=== PATIENT | male | born 1990 | race Caucasian/White ===

== ENCOUNTER 2020-06-21 14:24 | Emergency (ER) | payer OTHER ==
[~2020-06-21] VITALS: Ht 175.3 cm; Wt 70.5 kg
[2020-06-21] MEDS ORDERED: BUPR1SUB5 (14:29)
[2020-06-21] MEDS ORDERED: ZOLM5TAB14 (14:29)
[2020-06-21] MEDS ORDERED: NORCO, ANEXSIA 5/325MG TABLET (HYDROcodone/ACETAMINOPHEN) PO ONE (15:00)
[2020-06-21] MEDS ORDERED: KETOROLAC 60MG 2ML VIAL IM ONE (15:15)
[2020-06-21] MEDS ORDERED: ACETAMINOPHEN 500 MG TAB PO ONE (15:15)
--- NOTE | 2020-06-21 15:28 | REPVR ---
PROCEDURE INFORMATION: Exam: XR Left Knee Exam date and time: 06/21/2020 3:19 PM Age: 30 years old Clinical indication: Injury or trauma; Fall; Puncture; Patella or knee; Left; Without foreign body; Additional info: Removal of foreign body TECHNIQUE: Imaging protocol: XR Left knee. Views: 1 or 2 views. COMPARISON: CR Knee, complete LEFT 06/21/2020 2:31 PM FINDINGS: Bones/joints: No displaced fracture is seen. Soft tissues: The metallic nail previously demonstrated within or over the patella has been removed. No retained foreign body noted. Minimal soft tissue swelling in the prepatellar soft tissues. IMPRESSION: 1. No foreign bodies present. 2. Mild prepatellar soft tissue swelling. Electronically signed by: Aleida Cameron On 06/21/2020 15:28:35 PM
[2020-06-21] MEDS ORDERED: DOXYCYCLINE HYCLATE 100MG TABLET PO ONE (15:45)
[2020-06-21] MEDS ORDERED: DOXY100C37 PO (15:45)
[2020-06-21] MEDS ORDERED: BOOSTRIX/ADACEL VACCINE (DIPHTH/PERTUSS/ACELL/TETANUS) 0.5ML SYR IM ONE (15:45)
[2020-06-21 15:53] VITALS: BP 124/76
== END 2020-06-21 15:59 | disposition home or self-care (01) ==
LOC: M ED 14:24
DX: S80.252A Superficial foreign body, left knee, initial encounter (principal); W45.0XXA Nail entering through skin, initial encounter; W29.4XXA Contact with nail gun, initial encounter; Y92.009 Unspecified place in unspecified non-institutional (private) residence as the place of occurrence of the external cause; Y93.9 Activity, unspecified; Y99.9 Unspecified external cause status; Z88.0 Allergy status to penicillin; Z88.1 Allergy status to other antibiotic agents; Z88.2 Allergy status to sulfonamides
CPT/HCPCS: 73560; 90471; 90715; 96372; 99283; J1885

== ENCOUNTER → 2020-10-16 | Outpatient (REF) | payer OTHER ==
[~2020-10-16] MED LIST: BUPR1SUB5; DOXY100C37 PO; ZOLM5TAB14
[2020-10-16 18:13] LABS: HEPATITIS C VIRUS ABY INDEX 0.1 INDEX (<0.8); HIV 1&2 SCREEN CENTAUR NEGATIVE (NEGATIVE)
== END ==
LOC: M LAB REF 16:23
PROVIDERS: ATTEND Family Medicine Addiction Medicine
DX: Z11.3 Encounter for screening for infections with a predominantly sexual mode of transmission (principal)

== ENCOUNTER → 2020-10-16 | Outpatient (REF) | payer OTHER ==
[2020-10-16 20:00] LABS: CHLAMYDIA DNA AMPLIFICATION NEGATIVE (NEGATIVE); GC DNA AMPLIFICATION NEGATIVE (NEGATIVE)
== END ==
LOC: M LAB REF 16:08
PROVIDERS: ATTEND Family Medicine Addiction Medicine
DX: Z11.3 Encounter for screening for infections with a predominantly sexual mode of transmission (principal)

== ENCOUNTER 2021-06-27 18:03 | Emergency (ER) | payer OTHER ==
[~2021-06-27] VITALS: Ht 172.7 cm; Wt 65.9 kg
[~2021-06-27 18:03] MED LIST changes: +DOXY-443 PO; -DOXY100C37 PO
[2021-06-27] MEDS ORDERED: GABA-1171 PO (18:09)
--- OUTSIDE RECORDS SUMMARY | 2021-06-27 18:15 | CCD ---
Author Organization Unknown Address [address] [place] [address] Phone [phone] Care Team Providers Care Lastex Operator Name Role Phone Justice Vasquez Unavailable Unavailable Allergies Code Code System Name Reaction Severity Status Onset 723 RxNorm Amoxicillin Active 12/10/2019 Penicillin Active 12/10/2019 Sulfa (Sulfonamide Antibiotics) Active Medications Name Status Start Date Stop Date buprenorphine 2 mg-naloxone 0.5 [address] film PL[address] ONE FILM UNDER THE TONGUE EVERY MORNING MAXIMUM DAILY DOSE 1 Active Not available buprenorphine 2 mg-naloxone 0.5 mg subli ngual tablet DISSOLVE ONE TABLET UNDER THE TONGUE EVERY EVENING MAX DAILY DOSE ONE TABLET Completed 08/11/2020 buprenorphine 4 mg-naloxone 1 mg subling ual film PLACE ONE FILM UNDER THE TONGUE EVERY DAY MAXIMUM DAILY DOSE 1 Completed 08/11/2020 buprenorphine 8 mg-naloxone 2 mg subling ual film PLACE ONE FILM UNDER THE TONGUE TWICE A DAY MAXIMUM DAILY DOSE 2 Active Not available buprenorphine 8 mg-naloxone 2 mg subling ual tablet DISSOLVE ONE TABLET UNDER THE TONGUE TWICE DAILY MAX DAILY DOSE TWO TABLETS Completed 10/16/2020 buspirone 15 mg tablet TAKE ONE TABLET BY MOUTH TWICE DAILY Completed buspirone 7.5 mg tablet TAKE ONE TABLET BY MOUTH TWICE DAILY Completed cephalexin 500 mg capsule TAKE ONE CAPSULE BY MOUTH EVERY 8 HOURS Completed 08/11/2020 Chantix Starting Month Box 0.5 mg (11)-1 mg (42) tablets in dose pack USE DIRECTED PER BOX INSTRUCTIONS Completed citalopram 10 mg tablet TAKE ONE TABLET BY MOUTH EVERY MORNING Completed 10/16/2020 clindamycin HCl 300 mg capsule TAKE ONE CAPSULE BY MOUTH EVERY 6 HOURS UNTIL FINISHED Completed 08/11/2020 Denta 5000 Plus 1.1 % cream Completed 04/2020 divalproex ER 250 mg tablet,extended release 24 hr Active Not available doxycycline monohydrate 100 mg capsule TAKE ONE CAPSULE BY MOUTH EVERY 12 HOURS Completed 08/11/2020 fluoxetine 10 mg capsule TAKE ONE CAPSULE BY MOUTH EVERY MORNING Completed 10/16/2020 gabapentin 100 mg capsule TAKE ONE CAPSULE BY MOUTH THREE TIMES A DAY Completed 08/11/2020 gabapentin 300 mg capsule TAKE ONE CAPSULE BY MOUTH TWICE DAILY Completed 10/16/2020 gabapentin 400 mg capsule TAKE ONE CAPSULE BY MOUTH THREE TIMES A DAY Active Not available ibuprofen 200 mg tablet TAKE 2 TABLETS BY MOUTH EVERY 4 6 HOURS NEEDED Completed 08/11/2020 ibuprofen 600 mg tablet TAKE ONE TABLET BY MOUTH EVERY 6 HOURS NEEDED Completed 08/11/2020 Narcan 4 mg/actuation nasal spray instill ONE SPRAY in nostril(s) NEEDED Active Not available ondansetron 4 mg disintegrating tablet TAKE ONE TABLET BY MOUTH EVERY 8 HOURS NEEDED FOR NAUSEA AND vomiting Active Not available ondansetron HCl 8 mg tablet TAKE ONE TABLET BY MOUTH THREE TIMES DAILY NEEDED MIGRAINES Active Not available sumatriptan 50 mg tablet TAKE 1 TABLET BY MOUTH NEEDED Completed 2019 sumatriptan 6 mg/0.5 mL subcutaneous pen injector USE ONE INJECTOR ONCE DAILY NEEDED FOR MIGRAINES Completed 10/16/2020 topiramate 25 mg tablet TAKE ONE HALF TABLET BY MOUTH TWICE A DAY Completed 08/11/2020 topiramate 50 mg tablet TAKE ONE TABLET BY MOUTH ONCE DAILY Completed tramadol 50 mg tablet TAKE ONE TABLET BY MOUTH EVERY 3 HOURS NEEDED FOR 14 DAYS MAXIMUM DAILY DOSE 3 Completed 08/11/2020 zolmitriptan 5 mg disintegrating tablet DISSOLVE ONE TABLET BY MOUTH AT ONSET OF HEADACHE, MAY REPEAT IN TWO HOURS if NEEDED MAX DAILY DOSE TWO TABLETS Active Not av ailable zolmitriptan 5 mg tablet Active Not boaz ilable Problems Name Status Onset Date Source 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 History Dental Caries on Smooth Surface Penetrating into Pulp Active 03/05/2020 History Generalized Anxiety Disorder Active 08/11/2020 Opioid Dependence Active 08/11/2020 Restless Legs Active 08/11/2020 Migraine Active 08/11/2020 Tobacco User Active 10/16/2020 Cervical Lymphadenopathy Active 04/20/2021 Procedures Date Name Performed by 04/20/2021 US, Neck, Soft Tissue Information not av ailable Results Lab Results Date Name Specimen Result Interpretation Description Value Range Status Address 04/12/2021 Lipid Panel, Blood Blood venous Cholesterol , Total 189 mg/dL <200 mg/dL Final [facility]: [address] [facility] Blood venous HDL Cholesterol 43 mg/dL > or = 40 mg/dL Final [facility]: [address] [facility] Blood venous Triglycerides 114 mg/dL <150 mg/dL [facility]: [address] [facility] Blood venous High LDL-cholesterol 124 mg/d L (calc) <100 mg/dL (calc) Final [facility]: [address] [facility] Blood venous Chol/hdlc Ratio 4.4 calc <5.0 calc Final [facility]: [address] [facility] Blood venous High Non HDL Cholesterol 146 mg/dL (calc) <130 mg/dL (calc) Final [facility]: [address] [facility] 04/12/2021 CMP, Serum or Plasma Blood venous High Glucose 129 mg/dL 65-99 mg/dL Final [facility]: [address] [facility] Blood venous Normal Urea Nitrogen (BUN) 14 mg/dL 7-25 mg/dL Final [facility]: [address] [facility] Blood venous Normal Creatinine 0.88 mg/dL 0.60-1. 35 mg/dL [facility]: [address] [facility] Blood venous Normal eGFR Non-afr. Afghan 1 14 mL/min/1.73m2 > or = 60 mL/min/1.73m2 Final [facility]: [address] [facility] Blood venous Normal eGFR 13 2 mL/min/1.73m2 > or = 60 mL/min/1.73m2 Final [facility]: [address] [facility] Blood venous BUN/creatinine Ratio not applicable (calc) 6-22 (calc) [facility]: [address] [facility] Blood venous Normal Sodium 139 mmol/L 135-146 mmo l/L [facility]: [address] [facility] Blood venous Normal Potassium 4.0 mmol/L 3.5-5.3 mmol/L [facility]: [address] [facility] Blood venous Normal Chloride 103 mmol/L 98-110 mm ol/L Final [facility]: [address] [facility] Blood venous Normal Carbon Dioxide 27 mmol/L 20-3 2 mmol/L Final [facility]: [address] [facility] Blood venous Normal Calcium 9.8 mg/dL 8.6-10.3 mg /dL [facility]: [address] [facility] Blood venous Normal Protein, Total 6.9 g/dL 6.1-8 .1 g/dL [facility]: [address] [facility] Blood venous Normal Albumin 4.8 g/dL 3.6-5.1 g/dL [facility]: [address] [facility] Blood venous Normal Globulin 2.1 g/dL (calc) 1.9- 3.7 g/dL (calc) [facility]: [address] [facility] Blood venous Normal Albumin/globulin Ratio 2 .3 (calc) 1.0-2.5 (calc) [facility]: [address] [facility] Blood venous Normal Bilirubin, Total 0.5 mg/dL 0. 2-1.2 mg/dL Final [facility]: [address] [facility] Blood venous Normal Alkaline Phosphatase 78 U/L 3 6-130 U/L Final [facility]: [address] [facility] Blood venous Normal Ast 22 U/L 10-40 U/L [facility]: [address] [facility] Blood venous Normal Alt 26 U/L 9-46 U/L Final [facility]: [address] [facility] 04/12/2021 TSH, Serum or Plasma Blood venous Normal TSH W/reflex to FT4 2.18 mIU/L 0.40-4.50 mIU/L Final [facility]: [address] [facility] 10/16/2020 Hepatitis C Ab, Serum Normal Hepati tis C Virus Melissa Index 0.1 index <0.8 index Final [facility] nter: [address] [facility] 10/16/2020 HIV 1+2 AB + HIV 1 P24 Ag, Qualitative Immunoassay, Serum Normal HIV 1&2 Screen Centaur negative negative Final [facility]: [address] [facility] 10/16/2020 Chlamydia, GC & Trich Amp Normal Ch lamydia DNA Amplification negative negative Final [facility] nter: [address] [facility] Normal GC DNA Amplification negative negati ve Final [facility]: [address] [facility] Normal Trichomonas Vaginalis (Amp) not dete cted negative Final [facility]: [address] [facility] 08/18/2020 Drug of Abuse Panel, Urine Urine No observation recorded. [facility] [place] [facility] [place] [facility]: [address], [facility] 08/11/2020 Drug of Abuse Panel, Urine Urine No observation recorded. [facility] [place] [facility]: [address], [facility] Past Encounters 04/20/2021 Cervical Lymphadenopathy; Tobacco User; Migraine; Hyperglycemia Justice Vasquez MD: [address] [place] [phone], Ph. 04/12/2021 Justice Vasquez MD: [address] [place] [phone], Ph. 03/31/2021 Nodule of Skin of Neck; Tobacco User; Generalized Anxiety Disorder Justice Vasquez MD: [address] [place] [phone], Ph. 02/24/2021 Opioid Dependence; Tobacco User; Migraine; Generalized Anxiety Disorder Justice Vasquez MD: [address] [place] [phone], Ph. 11/13/2020 Generalized Anxiety Disorder; Migraine Justice Vasquez MD: [address] [place] [phone], Ph. 10/16/2020 Generalized Anxiety Disorder; Migraine; Venereal Disease Screening; Tobacco User; Opioid Dependence; Adult Health Examination Justice Vasquez MD: [address] [place] [phone], Ph. 08/18/2020 Opioid Dependence; Migraine Justice Vasquez MD: [address] [place] [phone], Ph. 08/11/2020 Generalized Anxiety Disorder; Migraine; Restless Legs; Opioid Dependence Justice Vasquez MD: [address] [place] [phone], Ph. Social History Tobacco Smoking Status Heavy Tobacco Smoker (1 pack per a da y) Vaccine List Notes: Pt declined flu shot Plan of Care Reminders Provider Appointments None recorded. Lab None recorded. Referral None recorded. Procedures None recorded. Surgeries None recorded. Imaging None recorded. Vitals 04/20/2021 11:00AM ESTABLISHED [id number] Height Weight BMI Blood Pressure 69 in 146 lbs 21.6 kg/m2 145/83 mm[Hg] 04/12/2021 10:10AM NURSE LAB COLLECTION Height 69 in 03/31/2021 03:00PM MAT Height Weight BMI Blood Pressure 69 in 139 lbs 16 oz 20.7 kg/m2 141/85 mm[Hg] 02/24/2021 10:40AM ESTABLISHED [id number] Height Weight BMI Blood Pressure 69 in 139 lbs 20.5 kg/m2 129/82 mm[Hg] 11/13/2020 02:00PM ESTABLISHED [id number] Height Weight BMI Blood Pressure 69 in 147 lbs 8 oz 21.8 kg/m2 116/68 mm[Hg] 10/16/2020 11:20AM ANNUAL EXAM Height Weight BMI Blood Pressure 69 in 156 lbs 6 oz 23.1 kg/m2 127/80 mm[Hg] 08/18/2020 09:20AM MAT Height Weight BMI Blood Pressure 69 in 153 lbs 8 oz 22.7 kg/m2 125/82 mm[Hg] 08/11/2020 08:20AM MAT Height Weight BMI Blood Pressure 69 in 153 lbs 16 oz 22.7 kg/m2 108/74 mm[Hg]
--- OUTSIDE RECORDS SUMMARY | 2021-06-27 18:15 | CCD ---
Author Organization Unknown Address [address] [place] [address] Phone [phone] Care Team Providers Care Rn Practitioner Name Role Phone Justice Vasquez Unavailable Unavailable [...] Performed by 04/20/2021 US, Neck, Soft Tissue [facility] [address] [place] [address] (Work Place) Results Lab Results Date Name Specimen Result Interpretation Description Value Range Status Address 04/12/2021 Lipid Panel, Blood Blood venous Cholesterol , Total 189 mg/dL <200 mg/dL Final [facility]: [address] [facility] Blood venous HDL Cholesterol 43 mg/dL > or = 40 mg/dL Final [facility]: [address] [facility] Blood venous Triglycerides 114 mg/dL <150 mg/dL Final [facility]: [address] [facility] Blood venous High LDL-cholesterol 124 mg/d L (calc) <100 mg/dL (calc) Final [facility]: [address] [facility] Blood venous Chol/hdlc Ratio 4.4 calc <5.0 calc Final [facility]: [address] [facility] Blood venous High Non HDL Cholesterol 146 mg/dL (calc) <130 mg/dL (calc) Final [facility]: [address] [facility] 04/12/2021 CMP, Serum or Plasma Blood venous High Glucose 129 mg/dL 65-99 mg/dL Final [facility]: [address] [facility] Blood venous Normal Urea Nitrogen (BUN) 14 mg/dL 7-25 mg/dL [facility]: [address] [facility] Blood venous Normal Creatinine 0.88 mg/dL 0.60-1. 35 mg/dL [facility]: [address] [facility] Blood venous Normal eGFR Non-afr. Romanian 1 14 mL/min/1.73m2 > or = 60 mL/min/1.73m2 Final [facility]: [address] [facility] Blood venous Normal eGFR 13 2 mL/min/1.73m2 > or = 60 mL/min/1.73m2 Final [facility]: [address] [facility] Blood venous BUN/creatinine Ratio not applicable (calc) 6-22 (calc) [facility]: [address] [facility] Blood venous Normal Sodium 139 mmol/L 135-146 mmo l/L Final [facility]: [address] [facility] Blood venous Normal Potassium 4.0 mmol/L 3.5-5.3 mmol/L [facility]: [address] [facility] Blood venous Normal Chloride 103 mmol/L 98-110 mm ol/L Final [facility]: [address] [facility] Blood venous Normal Carbon Dioxide 27 mmol/L 20-3 2 mmol/L [facility]: [address] [facility] Blood venous Normal Calcium 9.8 mg/dL 8.6-10.3 mg /dL Final [facility]: [address] [facility] Blood venous Normal Protein, Total 6.9 g/dL 6.1-8 .1 g/dL Final [facility]: [address] [facility] Blood venous Normal Albumin 4.8 g/dL 3.6-5.1 g/dL [facility]: [address] [facility] Blood venous Normal Globulin 2.1 g/dL (calc) 1.9- 3.7 g/dL (calc) Final [facility]: [address] [facility] Blood venous Normal Albumin/globulin Ratio 2 .3 (calc) 1.0-2.5 (calc) Final [facility]: [address] [facility] Normal Bilirubin, Total 0.5 mg/dL 0. 2-1.2 mg/dL Final [facility]: [address] [facility] Blood venous Normal Alkaline Phosphatase 78 U/L 3 6-130 U/L Final [facility]: [address] [facility] Blood venous Normal Ast 22 U/L 10-40 U/L Final [facility]: [address] [facility] Blood venous Normal Alt 26 U/L 9-46 U/L Final [facility]: [address] [facility] 04/12/2021 TSH, Serum or Plasma Blood venous Normal TSH W/reflex to FT4 2.18 mIU/L 0.40-4.50 mIU/L Final [facility]: [address] [facility] 10/16/2020 Hepatitis C Ab, Serum Normal Hepati tis C Virus Melissa Index 0.1 index <0.[address] [facility] nter: [address] [facility] 10/16/2020 HIV 1+2 AB + HIV 1 P24 Ag, Qualitative Immunoassay, Serum Normal HIV 1&2 Screen Centaur negative negative Final [facility]: [address] [facility] 10/16/2020 Chlamydia, GC & Trich Amp Normal Ch lamydia DNA Amplification negative negative Final [facility] nter: [address] [facility] Normal GC DNA Amplification negative negati ve Final [facility]: [address] [facility] Normal Trichomonas Vaginalis (Amp) not dete cted negative Final [facility]: [address] [facility] 08/18/2020 Drug of Abuse Panel, Urine Urine No observation recorded. [facility] [place] [facility] [place] [facility]: [address] [facility] [address], [facility] 08/11/2020 Drug of Abuse Panel, Urine Urine No observation recorded. [facility] [place] [facility]: [address], [facility] Past Encounters 04/20/2021 Cervical Lymphadenopathy; Tobacco User; Migraine; Hyperglycemia Justice Vasquez MD: [address] [place] [phone], Ph. 04/12/2021 Justice Vasquez MD: [address] [place] [phone], Ph. 03/31/2021 Nodule of Skin of Neck; Tobacco User; Generalized Anxiety Disorder Justice Vasquez MD: [address] [place] [phone], Ph. 02/24/2021 Opioid Dependence; Tobacco User; Migraine; Generalized Anxiety Disorder Justice Vasquez MD: [address] [place] [phone], Ph. 11/13/2020 Generalized Anxiety Disorder; Migraine Justice Vasquez MD: [address] [place] [phone], Ph. 10/16/2020 Generalized Anxiety Disorder; Venereal Disease Screening; Migraine; Tobacco User; Opioid Dependence; Adult Health Examination Justice Vasquez MD: [address] [place] [phone], Ph. 08/18/2020 Opioid Dependence; Migraine Justice Vasquez MD: [address] [place] [phone], Ph. 08/11/2020 Generalized Anxiety Disorder; Migraine; Restless Legs; Opioid Dependence Justice Vasquez MD: [address] [place] [phone], Ph. Social History Tobacco Smoking Status Heavy Tobacco Smoker (1 pack per a da y) Vaccine List Notes: Pt declined flu shot Plan of Care Reminders Provider Appointments None recorded. Lab None recorded. Referral None recorded. Procedures None recorded. Surgeries None recorded. Imaging None recorded. Vitals 04/20/2021 11:00AM ESTABLISHED [id number] Height Weight BMI Blood Pressure 69 in 146 lbs 21.6 kg/m2 145/83 mm[Hg] 04/12/2021 10:10AM NURSE LAB COLLECTION Height 69 in 03/31/2021 03:00PM MAT Height Weight BMI Blood Pressure 69 in 139 lbs 16 oz 20.7 kg/m2 141/85 mm[Hg] 02/24/2021 10:40AM ESTABLISHED [id number] Height Weight BMI Blood Pressure 69 in 139 lbs 20.5 kg/m2 129/82 mm[Hg] 11/13/2020 02:00PM ESTABLISHED [id number] Height Weight BMI Blood Pressure 69 in [...]
--- OUTSIDE RECORDS SUMMARY | 2021-06-27 18:15 | CCD | Continuity of Care Document ---
Author Author Kevin MEYERS M.D. Organization Unknown Address [address] [place] [phone] Phone [phone] Care Team Providers Care Material Control Analyst Name Role Phone Justice Vasquez M.D. AUTM [phone] Problems Active Problems Provider Date Migraine Nga Meyers M.D. Onset: 11/30/2020 Kidney stone Nga Meyers M.D. Onset: 11/30/2020 Social History Type Date Description Comments Sex Unknown Tobacco Use Start: Unknown Heavy tobacco smoker (more than 10 cigarettes/day) Allergies and adverse reactions Active Allergies Criticality Reaction | Severity Comments Date Penicillin V Unable to assess criticality 11/30/2020 Amoxicillin Unable to assess criticality 11/30/2020 Sulfa Antibiotics Unable to assess criticality 11/30/2020 Medications Active Medications SIG Qnty Indications Ordering Provide r Date Divalproex Sodium ER 250mg Tablets ER 24HR take two tabs at bedtime. 60tabs Nga Meyers M.D. 11/30/2020 Ondansetron 4mg Tablets Dispers take 1 tab every 8 hours as needed for nausea and vomiting. 30tabs Nga Meyers M.D. 11/30/2020 Gabapentin 400mg Capsules 1 by mouth once a day Unknown Zolmitriptan 5mg Tablets 1 tab at the onset of headache, may repeat dose in 1 hr. max 2 tabs in 24 hours, and 4 tabs in 7 days. 6tasiomara Meyers M.D. Immunizations Description No Information Available Vital Signs Date Vital Result Comment 06/18/2021 10:48am Respiratory Rate 12 /min Height 64 inches 5'4" Weight 150.00 lb BMI (Body Mass Index) 25.7 kg/m2 [place] Body Weight 130 lb 03/10/2021 1:40pm Respiratory Rate 12 /min Height 64 inches 5'4" Weight 150.00 lb BMI (Body Mass Index) 25.7 kg/m2 [place] Body Weight 130 lb Results Description No Information Available Procedures Date Code Description Status 06/18/2021 56213 Office/Outpatient Established Mo d MDM 30-39 Min Completed 03/10/2021 39289 Office/Outpatient Established Mo d MDM 30-39 Min Completed Medical Devices Description No Information Available Encounters Type Date Location Provider Dx Diagnosis Office Visit 06/18/2021 10:30a [facility] Nga masterson M.D. G43.719 Chronic migraine w/o aura, intractable, w/o stat migr Office Visit 03/10/2021 1:15p [facility] Nga masterson M.D. G43.719 Chronic migraine w/o aura, intractable, w/o stat migr Assessments Date Code Description Provider 06/18/2021 G43.719 Chronic migraine wit hout aura, intractable, without status migrainosus Nga Meyers M.D. 03/10/2021 G43.719 Chronic migraine wit hout aura, intractable, without status migrainosus Nga Meyers M.D. Plan of Treatment Future Appointment(s):* 10/04/2021 12:45 pm - Nga Meyers M.D. at [facility] Functional Status Description No Information Available Mental Status Description No Information Available Referrals Description No Information Available
--- OUTSIDE RECORDS SUMMARY | 2021-06-27 18:15 | CCD ---
Author Organization Unknown Address [address] [place] [address] Phone [phone] Care Team Providers Care Shuffle Board Operator Name Role Phone Justice Vasquez Unavailable Unavailable Allergies Code Code System Name Reaction Severity Status Onset 723 RxNorm Amoxicillin Active 12/10/19 20 Penicillin Active 0 Sulfa (Sulfonamide Antibiotics) Active Medications Name Status Start Date Stop Date buprenorphine 2 mg-naloxone 0.5 mg subli ngual film PLACE ONE FILM UNDER THE TONGUE EVERY MORNING MAXIMUM DAILY DOSE 1 FILM Active Not available buprenorphine 2 mg-naloxone 0.5 [...] TWICE A DAY MAXIMUM DAILY DOSE 2 FILMS Active Not available buprenorphine 8 mg-naloxone 2 [...] Migraine Active 08/11/2020 Tobacco User Active 10/16/2020 Procedures None recorded. Results Lab Results Date Name Specimen Result Interpretation Description Value Range Status Address 10/16/2020 Hepatitis C Ab, Serum Normal Hepati tis C Virus Melissa Index 0.1 index <0.8 index Final [facility] nter: [address] [facility] 10/16/2020 HIV 1+2 AB + HIV 1 P24 Ag, Qualitative Immunoassay, Serum Normal HIV 1&2 Screen Centaur negative negative Final [facility]: [address] [facility] 10/16/2020 Chlamydia, GC & Trich Amp Normal Ch lamydia DNA Amplification negative negative Final [facility] nter: [address] [facility] Normal GC DNA Amplification negative negati ve [facility]: [address] [facility] Normal Trichomonas Vaginalis (Amp) not dete cted negative [facility]: [address] [facility] 08/18/2020 Drug of Abuse Panel, Urine Urine No observation recorded. [facility] [place] [facility] [place] [facility]: [address], [facility] [place] 08/11/2020 Drug of Abuse Panel, Urine Urine No observation recorded. [facility] [place] [facility]: [address] [place] [address], [facility] Past Encounters 03/31/2021 Nodule of Skin of Neck; Tobacco User; Generalized Anxiety Disorder Justice Vasquez MD: [address] [place] [phone], Ph. 02/24/2021 Opioid Dependence; Tobacco User; Migraine; Generalized Anxiety Disorder Justice Vasquez MD: [address] [place] [phone], Ph. 11/13/2020 Generalized Anxiety Disorder; Migraine Justice Vasquez MD: [address] [place] [phone], Ph. 10/16/2020 Generalized Anxiety Disorder; Venereal Disease Screening; Migraine; Tobacco User; Opioid Dependence; Adult Health Examination Justice Vasquez MD: [address] [place] [phone], Ph. 08/18/2020 Opioid Dependence; Migraine Justice Vasquez MD: [address] [place] [phone], Ph. 08/11/2020 Generalized Anxiety Disorder; Migraine; Restless Legs; Opioid Dependence Justice Vasquez MD: [address] [place] [phone], Ph. Social History Tobacco Smoking Status Heavy Tobacco Smoker (1 pack per a da y) Vaccine List Notes: Pt declined flu shot Plan of Care Reminders Provider Appointments None recorded. Lab None recorded. Referral None recorded. Procedures None recorded. Surgeries None recorded. Imaging None recorded. Vitals 03/31/2021 03:00PM MAT Height Weight BMI Blood Pressure 69 in 139 lbs 16 oz 20.7 kg/m2 141/85 mm[Hg] 02/24/2021 10:40AM ESTABLISHED [id number] Height Weight BMI Blood Pressure 69 in 139 lbs 20.5 kg/m2 129/82 mm[Hg] 11/13/2020 02:00PM ESTABLISHED [id number] Height Weight BMI Blood Pressure 69 in [...]
--- OUTSIDE RECORDS SUMMARY | 2021-06-27 18:15 | CCD | Continuity of Care Document ---
Author Author Kevin MEYERS M.D. Organization Unknown Address [address] [place] [id number] Phone [phone] Care Team Providers Care Applications Engineering Manager Name Role Phone Justice Vasquez M.D. AUTM [phone] Problems Active Problems Provider Date Migraine Nga [...] lb BMI (Body Mass Index) 25.7 kg/m2 [place] Body Weight 130 lb 03/10/2021 1:40pm Respiratory Rate 12 /min Height 64 inches 5'4" Weight 150.00 lb BMI (Body Mass Index) 25.7 kg/m2 [place] Body Weight 130 lb Results Description No Information Available Procedures Date Code Description Status 06/18/2021 29733 Office/Outpatient Established Mo d MDM 30-39 Min Completed 03/10/2021 62346 Office/Outpatient Established Mo d MDM 30-39 Min Completed Medical Devices Description No Information Available Encounters Type Date Location Provider Dx Diagnosis Office Visit 06/18/2021 10:30a [facility] Nga masterson M.D. G43.719 Chronic migraine w/o aura, intractable, w/o stat migr Office Visit 03/10/2021 1:15p [facility] Nga masterson M.D. G43.719 Chronic migraine w/o aura, intractable, w/o stat migr Assessments Date Code Description Provider 06/18/2021 G43.719 Chronic migraine wit hout aura, intractable, without status migrainosus Nga Meyers M.D. 03/10/2021 G43.719 Chronic migraine wit hout aura, intractable, without status migrainosus Nga Meyers M.D. Plan of Treatment Future Appointment(s):* 10/04/2021 12:45 pm - Nga Meyers M.D. at [facility] Functional Status Description No Information Available Mental Status Description No Information Available Referrals Description No Information Available
--- OUTSIDE RECORDS SUMMARY | 2021-06-27 18:16 | CCD ---
Author Author [facility] Organization [facility] Address Unknown Phone Unavailable Care Team Providers Care Travelift Operator Name Role Phone Jose Vasquez MD Unavailable Unavailable Jose Vasquez MD Unavailable Unavailable Jose Vasquez MD Unavailable Unavailable Jose Vasquez MD Unavailable Unavailable Jose Vasquez MD Unavailable Unavailable Jose Vaqsuez MD Unavailable Unavailable Jose Vasquez MD Unavailable Unavailable Jose Vasquez MD Unavailable Unavailable Jose Vasquez MD Unavailable Unavailable Jose Vasquez MD Unavailable Unavailable Jose Vasquez MD Unavailable Unavailable Jose Vasquez MD Unavailable Unavailable Jose Vasquez MD Unavailable Unavailable Jose Vasquez MD Unavailable Unavailable Jose Vasquez MD Unavailable Unavailable Jose Vasquez MD Unavailable Unavailable Jose Vasquez MD Unavailable Unavailable Jose Vasquez MD Unavailable Unavailable Jose Vasquez MD Unavailable Unavailable Jose Vasquez MD Unavailable Unavailable Jose Vasquez MD Unavailable Unavailable Jose Vasquez MD Unavailable Unavailable Jose Vasquez MD Unavailable Unavailable Jose Vasquez MD Unavailable Unavailable Jose Vasquez MD Unavailable Unavailable Jose Vasquez MD Unavailable Unavailable Jose Vasquez MD Unavailable Unavailable Jose Vasquez MD Unavailable Unavailable Jose Vasquez MD Unavailable Unavailable Jose Vasquez MD Unavailable Unavailable Jose Vasquez MD Unavailable Unavailable Jose Vasquez MD Unavailable Unavailable Jose Vasquez MD Unavailable Unavailable Jose Vasquez MD Unavailable Unavailable Jose Vasquez MD Unavailable Unavailable Jose Vasquez MD Unavailable Unavailable Jose Vasquez MD Unavailable Unavailable Jose Vasquez MD Unavailable Unavailable Jose Vasquez MD Unavailable Unavailable Jose Vasquez MD Unavailable Unavailable Jose Vasquez MD Unavailable Unavailable Jose Vasquez MD Unavailable Unavailable Jose Vasquez MD Unavailable Unavailable Jose Vasquez MD Unavailable Unavailable Jose Vasquez MD Unavailable Unavailable Jose Vasquez MD Unavailable Unavailable Jose Vasquez MD Unavailable Unavailable Jose Vasquez MD Unavailable Unavailable Jose Vasquez MD Unavailable Unavailable Jose Vasquez MD Unavailable Unavailable Jose Vasquez MD Unavailable Unavailable Jose Vasquez MD Unavailable Unavailable Jose Vasquez MD Unavailable Unavailable Jose Vasquez MD Unavailable Unavailable Jose Vasquez MD Unavailable Unavailable Jose Vasquez MD Unavailable Unavailable Jose Vasquez MD Unavailable Unavailable Jose Vasquez MD Unavailable Unavailable Jose Vasquez MD Unavailable Unavailable Jose Vasquez MD Unavailable Unavailable Jose Vasquez MD Unavailable Unavailable Jose Vasquez MD Unavailable Unavailable Jose Vasquez MD Unavailable Unavailable Jose Vasquez MD Unavailable Unavailable Jose Vasquez MD Unavailable Unavailable Jose Vasquez MD Unavailable Unavailable Jose Vasquez MD Unavailable Unavailable Jose Vasquez MD Unavailable Unavailable Jose Vasquez MD Unavailable Unavailable Jose Vasquez MD Unavailable Unavailable Jose Vasquez MD Unavailable Unavailable Jose Vasquez MD Unavailable Unavailable Jose Vasquez MD Unavailable Unavailable Jose Vasquez MD Unavailable Unavailable Jose Vasquez MD Unavailable Unavailable Jose Vasquez MD Unavailable Unavailable Jose Vasquez MD Unavailable Unavailable Jose Vasquez MD Unavailable Unavailable Jose Vasquez MD Unavailable Unavailable Jose Vasquez MD Unavailable Unavailable Jose Vasquez MD Unavailable Unavailable Jose Vasquez MD Unavailable Unavailable Jose Vasquez MD Unavailable Unavailable Jose Vasquez MD Unavailable Unavailable Jose Vasquez MD Unavailable Unavailable Jose Vasquez MD Unavailable Unavailable Jose Vasquez MD Unavailable Unavailable Jose Vasquez MD Unavailable Unavailable Jose Vasquez MD Unavailable Unavailable Jose Vasquez MD Unavailable Unavailable Jose Vasquez MD Unavailable Unavailable Jose Vasquez MD Unavailable Unavailable Jose Vasquez MD Unavailable Unavailable Felisa Hanna MD Unavailable Unavailable Felisa Hanna MD Unavailable Unavailable Felisa Hanna MD Unavailable Unavailable Felisa Hanna MD Unavailable Unavailable Felisa Hanna MD Unavailable Unavailable Felisa Hanna MD Unavailable Unavailable Felisa Hanna MD Unavailable Unavailable Felisa Hanna MD Unavailable Unavailable Felisa Hanna MD Unavailable Unavailable Felisa Hanna MD Unavailable Unavailable Felisa Hanna MD Unavailable Unavailable Felisa Hanna MD Unavailable Unavailable Felisa Hanna MD Unavailable Unavailable Felisa Hanna MD Unavailable Unavailable Felisa Hanna MD Unavailable Unavailable Felisa Hanna MD Unavailable Unavailable Felisa Hanna MD Unavailable Unavailable Feilsa Hanna MD Unavailable Unavailable Felisa Hanna MD Unavailable Unavailable Felisa Hanna MD Unavailable Unavailable Felisa Hanna MD Unavailable Unavailable Felisa Hanna MD Unavailable Unavailable Felisa Hanna MD Unavailable Unavailable Felisa Hanna MD Unavailable Unavailable Felisa Hanna MD Unavailable Unavailable Felisa Hanna MD Unavailable Unavailable Felisa Hanna MD Unavailable Unavailable Felisa Hanna MD Unavailable Unavailable Felisa Hanna MD Unavailable Unavailable Felisa Hanna MD Unavailable Unavailable Felisa Hanan MD Unavailable Unavailable Felisa Hanna MD Unavailable Unavailable Felisa Hanna MD Unavailable Unavailable Felisa Hanna MD Unavailable Unavailable Felisa Hanna MD Unavailable Unavailable Felisa Hanna MD Unavailable Unavailable Felisa Hanna MD Unavailable Unavailable Felisa Hanna MD Unavailable Unavailable Felisa Hanna MD Unavailable Unavailable Felisa Hanna MD Unavailable Unavailable Felisa Hanna MD Unavailable Unavailable Felisa Hanna MD Unavailable Unavailable Felisa Hanna MD Unavailable Unavailable Felisa Hanna Sam Unavailable Unavailable Jacques O Nga SIMENTAL Unavailable Unavailable Jacques O Nga SIMENTAL Unavailable Unavailable Jacques O Nga SIMENTAL Unavailable Unavailable Jacques O Nga SIMENTAL Unavailable Unavailable Felisa Hanna MD Unavailable Unavailable Jacques O Nga SIMENTAL Unavailable Unavailable Jacques O Arslan Unavailable Unavailable Jacques O Nga SIMENTAL Unavailable Unavailable Felisa Hanna MD Unavailable Unavailable Jacques O Nga SIMENTAL Unavailable Unavailable Jacques O Nga SIMENTAL Unavailable Unavailable Jacques O Nga SIMENTAL Unavailable Unavailable Jacques O Arslan Unavailable Unavailable Jacques O Nga SIMENTAL Unavailable Unavailable Jacques O Nga SIMENTAL Unavailable Unavailable Felisa Hanna MD Unavailable Unavailable Jacques O Nga SIMENTAL Unavailable Unavailable Jacques O Arslan Unavailable Unavailable Jacques O Arslan Unavailable Unavailable Jacques O Nga SIMENTAL Unavailable Unavailable Felisa Hanna MD Unavailable Unavailable Felisa Hanna MD Unavailable Unavailable Felisa Hanna MD Unavailable Unavailable Felisa Hanna Unavailable Unavailable Felisa Hanna Unavailable Unavailable Jacques O Nga SIMENTAL Unavailable Unavailable Felisa Hanna MD Unavailable Unavailable Felisa Hanna MD Unavailable Unavailable Felisa Hanna Unavailable Unavailable Jacques O Arslan Unavailable Unavailable Felisa Hanna MD Unavailable Unavailable Jacques O Arslan Unavailable Unavailable Felisa Hanna MD Unavailable Unavailable Jacques O Nga SIMENTAL Unavailable Unavailable Jacques O Nga SIMENTAL Unavailable Unavailable Jose Vasquez MD Unavailable Unavailable Jose Vasquez MD Unavailable Unavailable Jose Vasquez MD Unavailable Unavailable Jose Vasquez MD Unavailable Unavailable Jose Vasquez MD Unavailable Unavailable Jose Vasquez MD Unavailable Unavailable Jose Vasquez MD Unavailable Unavailable Jose Vasquez MD Unavailable Unavailable Jose Vasquez MD Unavailable Unavailable Jose Vasquez MD Unavailable Unavailable Jose Vasquez MD Unavailable Unavailable Jose Vasquez MD Unavailable Unavailable Jose Vasquez MD Unavailable Unavailable Jose Vasquez MD Unavailable Unavailable Jose Vasquez MD Unavailable Unavailable Jose Vasquez MD Unavailable Unavailable Jose Vasquez MD Unavailable Unavailable Jose Vasquez MD Unavailable Unavailable Jose Vasquez MD Unavailable Unavailable Jose Vasquez MD Unavailable Unavailable Jose Vasquez MD Unavailable Unavailable Jose Vasquez MD Unavailable Unavailable Jose Vasquez MD Unavailable Unavailable Jose Vasquez MD Unavailable Unavailable Jose Vasquez MD Unavailable Unavailable Jose Vasquez MD Unavailable Unavailable Jose Vasquez MD Unavailable Unavailable Jose Vasquez MD Unavailable Unavailable Jose Vasquez MD Unavailable Unavailable Jose Vasquez MD Unavailable Unavailable Jose Vasquez MD Unavailable Unavailable Jose Vasquez MD Unavailable Unavailable Jose Vasquez MD Unavailable Unavailable Jose Vasquez MD Unavailable Unavailable Jose Vasquez MD Unavailable Unavailable Jose Vasquez MD Unavailable Unavailable Jose Vasquez MD Unavailable Unavailable Jose Vasquez MD Unavailable Unavailable Jose Vasquez MD Unavailable Unavailable Jose Vasquez MD Unavailable Unavailable Jose Vasquez MD Unavailable Unavailable Jose Vasquez MD Unavailable Unavailable Jose Vasquez MD Unavailable Unavailable Jose Vasquez MD Unavailable Unavailable Jose Vasquez MD Unavailable Unavailable Jose Vasquez MD Unavailable Unavailable Jose Vasquez MD Unavailable Unavailable Jose Vasquez MD Unavailable Unavailable Jose Vasquez MD Unavailable Unavailable Jose Vasquez MD Unavailable Unavailable Jose Vasquez MD Unavailable Unavailable Jose Vasquez MD Unavailable Unavailable Jose Vasquez MD Unavailable Unavailable Jose Vasquez MD Unavailable Unavailable Jose Vasquez MD Unavailable Unavailable Jose Vasquez MD Unavailable Unavailable Jose Vasquez MD Unavailable Unavailable Jose Vasquez MD Unavailable Unavailable Jose Vasquez MD Unavailable Unavailable Jose Vasquez MD Unavailable Unavailable Jose Vasquez MD Unavailable Unavailable Jose Vasquez MD Unavailable Unavailable Jose Vasquez MD Unavailable Unavailable Jose Vasquez MD Unavailable Unavailable Jose Vasquez MD Unavailable Unavailable Jose Vasquez MD Unavailable Unavailable Jose Vasquez MD Unavailable Unavailable Jose Vasquez MD Unavailable Unavailable Jose Vasquez MD Unavailable Unavailable Jose Vasquez MD Unavailable Unavailable Jose Vasquez MD Unavailable Unavailable Jose Vasquez MD Unavailable Unavailable Jose Vasquez MD Unavailable Unavailable Jose Vasquez MD Unavailable Unavailable Jose Vasquez MD Unavailable Unavailable Jose Vasquez MD Unavailable Unavailable Jose Vasquez MD Unavailable Unavailable Jose Vasquez MD Unavailable Unavailable Jose Vasquez MD Unavailable Unavailable Jose Vasquez MD Unavailable Unavailable Jose Vasquez MD Unavailable Unavailable Jose Vasquez MD Unavailable Unavailable Jose Vasquez MD Unavailable Unavailable Jose Vasquez MD Unavailable Unavailable Jose Vasquez MD Unavailable Unavailable Jose Vasquez MD Unavailable Unavailable Jose Vasquez MD Unavailable Unavailable Jose Vasquez MD Unavailable Unavailable Jose Vasquez MD Unavailable Unavailable Jose Vasquez MD Unavailable Unavailable Jose Vasquez MD Unavailable Unavailable Jose Vasquez MD Unavailable Unavailable Jose Vasquez MD Unavailable Unavailable Re-disclosure Warning The records that you are about to access may contain information from federally-assisted alcohol or drug abuse programs. If such information is present, then the following federally mandated warning applies: This information has been disclosed to you from records protected by federal confidentiality rules (42 CFR part 2). The federal rules prohibit you from making any further disclosure of this information unless further disclosure is expressly permitted by the written consent of the person to whom it pertains or as otherwise permitted by 42 CFR part 2. A general authorization for the release of medical or other information is NOT sufficient for this purpose. The Federal rules restrict any use of the information to criminally investigate or prosecute any alcohol or drug abuse patient.The records that you are about to access may contain highly sensitive health information, the redisclosure of which is protected by Article 27-F of the [facility] Public Health law. If you continue you may have access to information: Regarding HIV / AIDS; Provided by facilities licensed or operated by the [facility] Office of Mental Health; or Provided by the [facility] Office for People With Developmental Disabilities. If such information is present, then the following [facility] mandated warning applies: This information has been disclosed to you from confidential records which are protected by state law. State law prohibits you from making any further disclosure of this information without the specific written consent of the person to whom it pertains, or as otherwise permitted by law. Any unauthorized further disclosure in violation of state law may result in a fine or mcfp sentence or both. A general authorization for the release of medical or other information is NOT sufficient authorization for further disc losure. Encounters Encounter Providers Location Date Indications Data Source(s ) Outpatient Attender: Nga Hanna MD Main office - [facility] 06/18/2021 10:30:00 AM EDT [facility] Jusitce Vasquez MD: [address] [place] [id number], Ph. Attender: Justice Vasquez MD [facility] Medical 04/20/2021 12:00:00 AM EDT [facility] ([facility]) Justice Vasquez MD: [address] [place] [address], Ph. Attender: Justice Vasquez MD [facility] Medical 04/20/2021 12:00:00 AM EDT [facility] ([facility]) Justice Vasquez MD: [address] [place] [address], Ph. Attender: Justice Vasquez MD [facility] Medical 04/12/2021 12:00:00 AM EDT [facility] ([facility]) Justice Vasquez MD: [address] [place] [address], Ph. Attender: Justice Vasquez MD [facility] Medical 04/12/2021 12:00:00 AM EDT [facility] ([facility]) Justice Vasquez MD: [address] [place] [address], Ph. Attender: Justice Vasquez MD [facility] Medical 03/31/2021 12:00:00 AM EDT [facility] ([facility]) Justice Vasquez MD: [address] [place] [address], Ph. Attender: Justice Vasquez MD [facility] Medical 03/31/2021 12:00:00 AM EDT [facility] ([facility]) Justice Vasquez MD: [address] [place] [address], Ph. Attender: Justice Vasquez MD [facility] Medical 03/31/2021 12:00:00 AM EDT [facility] ([facility]) Outpatient Attender: Nga Hanna MD Main office - [facility] 03/10/2021 01:15:00 PM EDT [facility] ([facility]) Justice Vasquez MD: [address] [place] [address], Ph. Attender: Justice Vasquez MD [facility] Medical 02/24/2021 12:00:00 AM EDT [facility] ([facility]) Justice Vasquez MD: [address] [place] [address], Ph. Attender: Justice Vasquez MD [facility] Medical 02/24/2021 12:00:00 AM EDT [facility] ([facility]) Justice Vasquez MD: [address] [place] [address], Ph. Attender: Justice Vasquez MD [facility] Medical 02/24/2021 12:00:00 AM EDT [facility] ([facility]) Justice Vasquez MD: [address] [place] [address], Ph. Attender: Justice Vasquez MD [facility] Medical 02/24/2021 12:00:00 AM EDT [facility] ([facility]) Outpatient Attender: Nga Hanna MD Main office [facility] 11/30/2020 08:30:00 AM EDT [facility] ([facility]) Justice Vasquez MD: [address] [place] [address], Ph. Attender: Justice Vasquez MD [facility] Medical 11/13/2020 12:00:00 AM EST [facility] ([facility]) Justice Vasquez MD: [address] [place] [address], Ph. Attender: Justice Vasquez MD [facility] Medical 11/13/2020 12:00:00 AM EST [facility] ([facility]) Justice Vasquez MD: [address] [place] [address], Ph. Attender: Justice Vasquez MD [facility] Medical 11/13/2020 12:00:00 AM EST [facility] ([facility]) Justice Vasquez MD: [address] [place] [address], Ph. Attender: Justice Vasquez MD [facility] Medical 11/13/2020 12:00:00 AM EST [facility] ([facility]) Justcie Vasquez MD: [address] [place] [address], Ph. Attender: Justice Vasquez MD [facility] Medical 11/13/2020 12:00:00 AM EST [facility] ([facility]) Justice Vasquez MD: [address] [place] [address], Ph. Attender: Justice Vasquez MD [facility] Medical 10/16/2020 12:00:00 AM EST [facility] ([facility]) Justice Vasquez MD: [address] [place] [address], Ph. Attender: Justice Vasquez MD [facility] Medical 10/16/2020 12:00:00 AM EST [facility] ([facility]) Justice Vasquez MD: [address] [place] [address], Ph. Attender: Justice Vasquez MD [facility] Medical 10/16/2020 12:00:00 AM EST [facility] ([facility]) Justice Vasquez MD: [address] [place] [address], Ph. Attender: Justice Vasquez MD [facility] Medical 10/16/2020 12:00:00 AM EST [facility] ([facility]) Justice Vasquez MD: [address] [place] [address], Ph. Attender: Justice Vasquez MD [facility] Medical 10/16/2020 12:00:00 AM EST [facility] ([facility]) Justice Vasquez MD: [address] [place] [address], Ph. Attender: Justice Vasquez MD [facility] Medical 10/16/2020 12:00:00 AM EST [facility] ([facility]) Justice Vasquez MD: [address] [place] [address], Ph. Attender: Justice Vasquez MD [facility] Medical 08/18/2020 12:00:00 AM EST [facility] ([facility]) Justice Vasquez MD: [address] [place] [address], Ph. Attender: Justice Vasquez MD [facility] Medical 08/18/2020 12:00:00 AM EST [facility] ([facility]) Justice Vasquez MD: [address] [place] [address], Ph. Attender: Justice Vasquez MD [facility] Medical 08/18/2020 12:00:00 AM EST [facility] ([facility]) Justice Vasquez MD: [address] [place] [address], Ph. Attender: Justice Vasquez MD [facility] Medical 08/18/2020 12:00:00 AM EST [facility] ([facility]) Justice Vasquez MD: [address] [place] [address], Ph. Attender: Justice Vasquez MD [facility] Medical 08/18/2020 12:00:00 AM EST [facility] ([facility]) Justice Vasquez MD: [address] [place] [address], Ph. Attender: Justice Vasquez MD [facility] Medical 08/18/2020 12:00:00 AM EST [facility] ([facility]) Justice Vasquez MD: [address] [place] [address], Ph. Attender: Justice Vasquez MD [facility] Medical 08/18/2020 12:00:00 AM EST [facility] ([facility]) Justice Vasquez MD: [address] [place] [address], Ph. Attender: Justice Vasquez MD [facility] Medical 08/11/2020 12:00:00 AM EST [facility] ([facility]) Justice Vasquez MD: [address] [place] [address], Ph. Attender: Justice Vasquez MD [facility] Medical 08/11/2020 12:00:00 AM EST [facility] ([facility]) Justice Vasquez MD: [address] [place] [address], Ph. Attender: Justice Vasquez MD [facility] Medical 08/11/2020 12:00:00 AM EST [facility] ([facility]) Justice Vasquez MD: [address] [place] [address], Ph. Attender: Justice Vasquez MD [facility] Medical 08/11/2020 12:00:00 AM EST [facility] ([facility]) Justice Vasquez MD: [address] [place] [address], Ph. Attender: Justice Vasquez MD [facility] Medical 08/11/2020 12:00:00 AM EST [facility] ([facility]) Justice Vasquez MD: [address] [place] [address], Ph. Attender: Justice Vasquez MD [facility] Medical 08/11/2020 12:00:00 AM EST [facility] ([facility]) Justice Vasquez MD: [address] [place] [address], Ph. Attender: Justice Vasquez MD [facility] Medical 08/11/2020 12:00:00 AM EST [facility] ([facility]) Justice Vasquez MD: [address] [place] [address], Ph. Attender: Justice Vasquez MD [facility] Medical 08/11/2020 12:00:00 AM EST [facility] ([facility]) Outpatient Attender: Justice Vasquez MD 07/08/2020 10:14:00 AM EST [facility] Outpatient Attender: Justice Vasquez MD 06/08/2020 10:11:00 AM EDT [facility] Out[facility] 06/05/2020 03:25:01 PM EDT [facility] Outpatient [facility] 06/05/2020 03:22:00 PM EDT [facility] Out[facility] 06/05/2020 03:21:01 PM EDT [facility] 06/05/2020 12:03:01 PM EDT [facility] 06/05/2020 12:01:01 PM EDT [facility] Immunizations Vaccine Date Status Description Data Source(s) COVID-19 VACCINE Moderna 12/15/2020 12:00:00 AM EDT completed [facility] Vaccine Series Complete: YESThis Data wa s Submitted to [facility] Via [employer]. COVID-19 VACCINE Moderna 11/17/2020 12:00:00 AM EDT completed [facility] Vaccine Series Complete: NOThis Data was Submitted to [facility] [employer]. Medications Medication Brand Name Start Date Product Form Dose Route Admi nistrative Instructions Pharmacy Instructions Status Indications Reaction Description Data Source(s) 12-3 mg 06/07/2021 12:00:00 AM EDT film 30 [address] ONE FILM UNDER THE TONGUE EVERY DAY IN THE MORNINGMDD [address] ONE FILM UNDER THE TONGUE EVERY DA Y IN THE MORNINGMDD 1 FILM SOLD: 06/07/2021 [facility] 8-2 mg 06/07/2021 12:00:00 AM EDT film 30 PL[address] ONE FILM UNDER THE TONGUE AT BEDTIME MAXIMUM DAILY DOSE = 1 PLACE ONE FILM UNDER THE TONGUE AT BEDTI ME MAXIMUM DAILY DOSE = 1 SOLD: 06/07/2021 [facility] 8-2 mg 05/28/2021 12:00:00 AM EDT film 10 PL[address] ONE FILM UNDER THE TONGUE AT BEDTIME MAXIMUM DAILY DOSE = [address] ONE FILM UNDER THE TONGUE AT BEDTI ME MAXIMUM DAILY DOSE = 1 FILM SOLD: 05/28/2021 [facility] 12-3 mg 2021 12:00:00 AM EDT film 10 [address] ONE FILM UNDER THE TONGUE EVERY MORNING MAXIMUM DAILY DOSE = [address] ONE FILM UNDER THE TONGUE EVERY MORNING MAXIMUM DAILY DOSE = 1 FILM SOLD: 05/28/2021 [facility] 8-2 mg 04/29/2021 12:00:00 AM EDT film 60 PLACE ONE FILM UNDER THE TONGUE TWICE A DAY MAXIMUM DAILY DOSE = [address] ONE FILM UNDER THE TONGUE TWICE A DAY MAXIMUM DAILY DOSE = 2 FILMS SOLD: 04/29/2021 [facility] 2-0.5 mg 04/29/2021 12:00:00 AM EDT film 30 [address] ONE FILM UNDER THE TONGUE EVERY MORNING MAXIMUM DAILY DOSE = [address] ONE FILM UNDER THE TONGUE EVERY MORNING MAXIMUM DAILY DOSE = 1 FILM SOLD: 04/29/2021 [facility] 400 mg 04/24/2021 12:00:00 AM EDT capsule 90 TAKE ONE CAPSULE BY MOUTH THREE TIMES A DAY TAKE ONE CAPSULE BY MOUTH THREE TIMES A DAY SOLD: 04/29/2021 [facility] 400 mg 04/24/2021 12:00:00 AM EDT capsule 90 TAKE ONE CAPSULE BY MOUTH THREE TIMES A DAY TAKE ONE CAPSULE BY MOUTH THREE TIMES A DAY SOLD: 05/28/2021 [facility] 5 mg 04/20/2021 12:00:00 AM EDT tablet,disintegrating 6 DISSOLVE ONE TABLET BY MOUTH AT THE ONSET OF HEADACHE, MAY REPEAT IN 2 HOURS IF NEEDED MAXIMUM DAILY DOSE = 2 DISSOLVE ONE TABLET BY MOUTH AT THE ONSE T OF HEADACHE, MAY REPEAT IN 2 HOURS IF NEEDED MAXIMUM DAILY DOSE = 2 SOLD: 04/29/2021 [facility] 8-2 mg 03/31/2021 12:00:00 AM EDT film [address] ONE FILM UNDER THE TONGUE TWICE A DAY MAXIMUM DAILY DOSE = 2 PLACE ONE FILM UNDER THE TONGUE TWICE A DAY MAXIMUM DAILY DOSE = 2 SOLD: 03/31/2021 [facility] 2-0.5 mg 03/31/2021 12:00:00 AM EDT film 30 [address] ONE FILM UNDER THE TONGUE EVERY MORNING MAXIMUM DAILY DOSE = 1 PLACE ONE FILM UNDER THE TONGUE EVERY MORNING MAXIMUM DAILY DOSE = 1 SOLD: 03/31/2021 [facility] 400 mg 03/19/2021 12:00:00 AM EDT capsule 90 TAKE ONE CAPSULE BY MOUTH THREE TIMES A DAY TAKE ONE CAPSULE BY MOUTH THREE TIMES A DAY SOLD: 03/20/2021 [facility] 2-0.5 mg 03/02/2021 12:00:00 AM EDT film 30 PLACE ONE FILM UNDER THE TONGUE EVERY MORNING MAXIMUM DAILY DOSE = [address] ONE FILM UNDER THE TONGUE EVERY MORNING MAXIMUM DAILY DOSE = 1 FILM SOLD: 03/02/2021 [facility] 8-2 mg 03/02/2021 12:00:00 AM EDT film [address] PL[address] ONE FILM UNDER THE TONGUE TWICE A DAY MAXIMUM DAILY DOSE = [address] ONE FILM UNDER THE TONGUE TWICE A DAY MAXIMUM DAILY DOSE = 2 FILMS SOLD: 03/02/2021 [facility] 400 mg 02/25/2021 12:00:00 AM EDT capsule 90 TAKE ONE CAPSULE BY MOUTH THREE TIMES A DAY TAKE ONE CAPSULE BY MOUTH THREE TIMES A DAY SOLD: 03/02/2021 [facility] 8-2 mg 01/31/2021 12:00:00 AM EDT film [address] ONE FILM UNDER THE TONGUE TWICE A DAY MAXIMUM DAILY DOSE = [address] ONE FILM UNDER THE TONGUE TWICE A DAY MAXIMUM DAILY DOSE = 2 FILMS SOLD: 01/31/2021 [facility] 2-0.5 mg 01/31/2021 12:00:00 AM EDT film [address] ONE FILM UNDER THE TONGUE EVERY MORNING MAXIMUM DAILY DOSE = [address] ONE FILM UNDER THE TONGUE EVERY MORNING MAXIMUM DAILY DOSE = 1 FILM SOLD: 01/31/2021 [facility] 400 mg 01/28/2021 12:00:00 AM EDT capsule 90 TAKE ONE CAPSULE BY MOUTH THREE TIMES A DAY TAKE ONE CAPSULE BY MOUTH THREE TIMES A DAY SOLD: 01/31/2021 [facility] 8-2 mg 01/02/2021 12:00:00 AM EDT film [address] ONE FILM UNDER THE TONGUE TWICE A DAY MAXIMUM DAILY DOSE = 2 PLACE ONE FILM UNDER THE TONGUE TWICE A DAY MAXIMUM DAILY DOSE = 2 SOLD: 01/02/2021 [facility] 2-0.5 mg 01/02/2021 12:00:00 AM EDT film [address] ONE FILM UNDER THE TONGUE EVERY MORNING MAXIMUM DAILY DOSE = [address] ONE FILM UNDER THE TONGUE EVERY MORNING MAXIMUM DAILY DOSE = 1 FILM SOLD: 01/02/2021 [facility] 400 mg 12/31/2020 12:00:00 AM EDT capsule 90 TAKE ONE CAPSULE BY MOUTH THREE TIMES A DAY TAKE ONE CAPSULE BY MOUTH THREE TIMES A DAY SOLD: 01/02/2021 [facility] 2-0.5 mg 12/01/2020 12:00:00 AM EDT film [address] ONE FILM UNDER THE TONGUE EVERY MORNING MAXIMUM DAILY DOSE = [address] ONE FILM UNDER THE TONGUE EVERY MORNING MAXIMUM DAILY DOSE = 1 FILM SOLD: 12/04/2020 [facility] 8-2 mg 12/01/2020 12:00:00 AM EDT film [address] ONE FILM UNDER THE TONGUE TWICE A DAY MAXIMUM DAILY DOSE = [address] ONE FILM UNDER THE TONGUE TWICE A DAY MAXIMUM DAILY DOSE = 2 FILMS SOLD: 12/04/2020 [facility] 24 HR Divalproex Sodium 250 MG Extended Release Oral T ablet Divalproex Sodium ER 11/30/2020 12:00:00 AM EDT active [facility] ([facility]) Ondansetron 4 MG Disintegrating Oral Tablet Ondansetron 11/30/2020 12:00:00 AM EDT active [facility] ([facility]) topiramate 100 MG Oral Tablet Topiramate 11/30/2020 12:00:00 AM EDT ORAL completed [facility] ([facility]) 400 mg 11/23/2020 12:00:00 AM EDT capsule 90 TAKE ONE CAPSULE BY MOUTH THREE TIMES A DAY TAKE ONE CAPSULE BY MOUTH THREE TIMES A DAY SOLD: 11/23/2020 [facility] Buprenorphine 2 MG / Naloxone 0.5 MG Ora l Strip buprenorphine 2 mg-naloxone 0.5 mg sublingual film DISSOLVE 1 FILM UNDER THE TONGUE EVERY MORNING, MAX DAILY DOSE ONE FILM buprenorphine 2 mg-naloxone 0.5 mg subli ngual film DISSOLVE 1 FILM UNDER THE TONGUE EVERY MORNING, MAX DAILY DOSE ONE FILM 11/13/2020 12:00:00 AM EST completed bupren orphine 2 MG / naloxone 0.5 MG Sublingual Film [facility] er) 100 mg 06/21/2020 12:00:00 AM EDT capsule 20 TAKE ONE CAPSULE BY MOUTH EVERY 12 HOURS TAKE ONE CAPSULE BY MOUTH EVERY 12 HOURS SOLD: 06/22/2020 [facility] 8 mg 04/21/2020 12:00:00 AM EDT tablet 30 TAKE ONE TABLET BY MOUTH THREE TIMES A DAY NEEDED FOR MIGRAINES TAKE ONE TABLET BY MOUTH THREE TIMES A D AY NEEDED FOR MIGRAINES SOLD: 05/23/2020 [facility] 5 mg 04/20/2020 12:00:00 AM EDT tablet,disintegrating 6 DISSOLVE 1 TABLET IN MOUTH AT THE ONSET OF A HEADACHE, MAY REPEAT DOSE AFTER 2 HOURS NEEDED MAXIMUM DAILY DOSE = 2 TABLETS DISSOLVE 1 TABLET IN MOUTH AT THE ONSET OF A HEADACHE, MAY REPEAT DOSE AFTER 2 HOURS NEEDED MAXIMUM DAILY DOSE = 2 TABLETS SOLD: 06/15/2020 [facility] 5 mg 04/20/2020 12:00:00 AM EDT tablet,disintegrating 6 DISSOLVE 1 TABLET IN MOUTH AT THE ONSET OF A HEADACHE, MAY REPEAT DOSE AFTER 2 HOURS NEEDED MAXIMUM DAILY DOSE = 2 TABLETS DISSOLVE 1 TABLET IN MOUTH AT THE ONSET OF A HEADACHE, MAY REPEAT DOSE AFTER 2 HOURS NEEDED MAXIMUM DAILY DOSE = 2 TABLETS SOLD: 05/23/2020 [facility] Ibuprofen 600 MG Oral Tablet ibuprofen 6 00 mg tablet TAKE ONE TABLET BY MOUTH EVERY 6 HOURS NEEDED ibuprofen 600 mg tablet TAKE ONE TABLET BY MOUTH EVERY 6 HOURS NEEDED completed ibupro fen 600 MG Oral Tablet [facility] ([facility]) Citalopram 10 MG Oral Tablet citalopram 10 mg tablet TAKE ONE TABLET BY MOUTH EVERY MORNING citalopram 10 mg tablet TAKE ONE TABLET BY MOUTH EVERY MORNI NG completed citalopram 10 MG Oral Tablet [facility] ([facility]) Sumatriptan 50 MG Oral Tablet sumatripta n 50 mg tablet TAKE 1 TABLET BY MOUTH NEEDED sumatriptan 50 mg tablet TAKE 1 TABLET BY MOUTH NEEDED completed sumatriptan 50 MG Oral Tablet AT [facility] ([facility]) Buprenorphine 8 MG / Naloxone 2 MG Subli ngual Tablet buprenorphine 8 mg-naloxone 2 mg sublingual tablet DISSOLVE ONE TABLET UNDER THE TONGUE TWICE DAILY MAX DAILY DOSE TWO TABLETS buprenorphine 8 mg-naloxone 2 mg subling ual tablet DISSOLVE ONE TABLET UNDER THE TONGUE TWICE DAILY MAX DAILY DOSE TWO TABLETS completed buprenorphine 8 MG / n aloxone 2 MG Sublingual Tablet [facility] ([facility]) Chantix Starting Month Box 0.5 mg (11)-1 mg (42) tablets in dose pack USE DIRECTED PER BOX INSTRUCTIONS [id number] [facility] Chantix Starting Month Box 0.5 mg (11)-1 mg (42) tablets in dose pack [facility] ([facility]) tramadol hydrochloride 50 MG Oral Tablet tramadol 50 mg tablet TAKE ONE TABLET BY MOUTH EVERY 3 HOURS NEEDED FOR 14 DAYS MAXIMUM DAILY DOSE 3 tramadol 50 mg tablet TAKE ONE TABLET BY MOUTH EVERY 3 HOURS NEEDED FOR 14 DAYS MAXIMUM DAILY DOSE 3 completed tramadol hydrochloride 50 MG Oral Tablet [facility] ([facility]) Buprenorphine 8 MG / Naloxone 2 MG Subli ngual Tablet buprenorphine 8 mg-naloxone 2 mg sublingual tablet DISSOLVE ONE TABLET UNDER THE TONGUE TWICE DAILY MAX DAILY DOSE TWO TABLETS buprenorphine 8 mg-naloxone 2 mg subling ual tablet DISSOLVE ONE TABLET UNDER THE TONGUE TWICE DAILY MAX DAILY DOSE TWO TABLETS completed buprenorphine 8 MG / n aloxone 2 MG Sublingual Tablet [facility] ([facility]) Citalopram 10 MG Oral Tablet citalopram 10 mg tablet TAKE ONE TABLET BY MOUTH EVERY MORNING citalopram 10 mg tablet TAKE ONE TABLET BY MOUTH EVERY MORNI NG completed citalopram 10 MG Oral Tablet [facility] ([facility]) Buprenorphine 8 MG / Naloxone 2 MG Subli ngual Tablet buprenorphine 8 mg-naloxone 2 mg sublingual tablet DISSOLVE ONE TABLET UNDER THE TONGUE TWICE DAILY MAX DAILY DOSE TWO TABLETS buprenorphine 8 mg-naloxone 2 mg subling ual tablet DISSOLVE ONE TABLET UNDER THE TONGUE TWICE DAILY MAX DAILY DOSE TWO TABLETS completed buprenorphine 8 MG / n aloxone 2 MG Sublingual Tablet [facility] ([facility]) gabapentin 300 MG Oral Capsule gabapenti n 300 mg capsule TAKE ONE CAPSULE BY MOUTH TWICE DAILY gabapentin 300 mg capsule TAKE ONE CAPSU LE BY MOUTH TWICE DAILY completed gabapentin 300 M G Oral Capsule [facility]) Ibuprofen 600 MG Oral Tablet ibuprofen 6 00 mg tablet TAKE ONE TABLET BY MOUTH EVERY 6 HOURS NEEDED ibuprofen 600 mg tablet TAKE ONE TABLET BY MOUTH EVERY 6 HOURS NEEDED completed ibupro fen 600 MG Oral Tablet [facility] ([facility]) gabapentin 400 MG Oral Capsule gabapenti n 400 mg capsule TAKE ONE CAPSULE BY MOUTH TWICE DAILY gabapentin 400 mg capsule TAKE ONE CAPSU LE BY MOUTH TWICE DAILY completed gabapentin 400 M G Oral Capsule [facility] ([facility]) buspirone hydrochloride 15 MG Oral Table t buspirone 15 mg tablet TAKE ONE TABLET BY MOUTH TWICE DAILY buspirone 15 mg tablet TAKE ONE TABLET B Y MOUTH TWICE DAILY completed buspirone hydroc hloride 15 MG Oral Tablet [facility] ([facility]) topiramate 25 MG Oral Tablet topiramate 25 mg tablet TAKE ONE HALF TABLET BY MOUTH TWICE A DAY topiramate 25 mg tablet TAKE ONE HALF TA BLET BY MOUTH TWICE A DAY completed topiramate 25 MG Oral Tablet [facility]) buspirone hydrochloride 15 MG Oral Table t buspirone 15 mg tablet TAKE ONE TABLET BY MOUTH TWICE DAILY buspirone 15 mg tablet TAKE ONE TABLET B Y MOUTH TWICE DAILY completed buspirone hydroc hloride 15 MG Oral Tablet [facility]) Buprenorphine 2 MG / Naloxone 0.5 MG Sub lingual Tablet buprenorphine 2 mg- naloxone 0.5 mg sublingual tablet DISSOLVE ONE TABLET UNDER THE TONGUE EVERY EVENING MAX DAILY DOSE ONE TABLET buprenorphine 2 mg-naloxone 0.5 mg subli ngual tablet DISSOLVE ONE TABLET UNDER THE TONGUE EVERY EVENING MAX DAILY DOSE ONE TABLET completed bupreno rphine 2 MG / naloxone 0.5 MG Sublingual Tablet [facility] er) Ibuprofen 600 MG Oral Tablet ibuprofen 6 00 mg tablet TAKE ONE TABLET BY MOUTH EVERY 6 HOURS NEEDED ibuprofen 600 mg tablet TAKE ONE TABLET BY MOUTH EVERY 6 HOURS NEEDED completed ibupro fen 600 MG Oral Tablet [facility] ([facility]) buspirone hydrochloride 15 MG Oral Table t buspirone 15 mg tablet TAKE ONE TABLET BY MOUTH TWICE DAILY buspirone 15 mg tablet TAKE ONE TABLET B Y MOUTH TWICE DAILY completed buspirone hydroc hloride 15 MG Oral Tablet [facility] ([facility]) buspirone hydrochloride 15 MG Oral Table t buspirone 15 mg tablet TAKE ONE TABLET BY MOUTH TWICE DAILY buspirone 15 mg tablet TAKE ONE TABLET B Y MOUTH TWICE DAILY completed buspirone hydroc hloride 15 MG Oral Tablet [facility] ([facility]) Doxycycline Monohydrate 100 MG Oral Caps ule doxycycline monohydrate 100 mg capsule TAKE ONE CAPSULE BY MOUTH EVERY 12 HOURS doxycycline monohydrate 100 mg capsule TAKE ONE CAPSULE BY MOUTH EVERY 12 HOURS completed doxycycline monohydrate 100 MG Oral Capsule [facility] ([facility]) Doxycycline Monohydrate 100 MG Oral Caps ule doxycycline monohydrate 100 mg capsule TAKE ONE CAPSULE BY MOUTH EVERY 12 HOURS doxycycline monohydrate 100 mg capsule TAKE ONE CAPSULE BY MOUTH EVERY 12 HOURS completed doxycycline monohydrate 100 MG Oral Capsule [facility] ([facility]) 0.5 ML Sumatriptan 6 MG Cartridge sumatr iptan 6 mg/0.5 mL subcutaneous pen injector USE ONE INJECTOR ONCE DAILY NEEDED FOR MIGRAINES sumatriptan 6 mg/0.5 mL subcutaneous pen injector USE ONE INJECTOR ONCE DAILY NEEDED FOR MIGRAINES completed 0.5 ML sumat riptan 12 MG/ML Cartridge [facility] ([facility]) Ibuprofen 600 MG Oral Tablet ibuprofen 6 00 mg tablet TAKE ONE TABLET BY MOUTH EVERY 6 HOURS NEEDED ibuprofen 600 mg tablet TAKE ONE TABLET BY MOUTH EVERY 6 HOURS NEEDED completed ibupro fen 600 MG Oral Tablet [facility] ([facility]) topiramate 50 MG Oral Tablet topiramate 50 mg tablet TAKE ONE TABLET BY MOUTH ONCE DAILY topiramate 50 mg tablet TAKE ONE TABLET BY MOUTH ONCE DAILY completed topiramate 50 MG Oral Tab let [facility] ([facility]) gabapentin 300 MG Oral Capsule gabapenti n 300 mg capsule TAKE ONE CAPSULE BY MOUTH TWICE DAILY gabapentin 300 mg capsule TAKE ONE CAPSU LE BY MOUTH TWICE DAILY completed gabapentin 300 M G Oral Capsule [facility] ([facility]) gabapentin 300 MG Oral Capsule gabapenti n 300 mg capsule TAKE ONE CAPSULE BY MOUTH TWICE DAILY gabapentin 300 mg capsule TAKE ONE CAPSU LE BY MOUTH TWICE DAILY completed gabapentin 300 M G Oral Capsule [facility] ([facility]) Doxycycline Monohydrate 100 MG Oral Caps ule doxycycline monohydrate 100 mg capsule TAKE ONE CAPSULE BY MOUTH EVERY 12 HOURS doxycycline monohydrate 100 mg capsule TAKE ONE CAPSULE BY MOUTH EVERY 12 HOURS completed doxycycline monohydrate 100 MG Oral Capsule [facility]) Chantix Starting Month Box 0.5 mg (11)-1 mg (42) tablets in dose pack USE DIRECTED PER BOX INSTRUCTIONS [id number] [facility] ed Chantix Starting Month Box 0.5 mg (11)-1 mg (42) tablets in dose pack [facility] ([facility]) Ibuprofen 600 MG Oral Tablet ibuprofen 6 00 mg tablet TAKE ONE TABLET BY MOUTH EVERY 6 HOURS NEEDED ibuprofen 600 mg tablet TAKE ONE TABLET BY MOUTH EVERY 6 HOURS NEEDED completed ibupro fen 600 MG Oral Tablet [facility] ([facility]) topiramate 25 MG Oral Tablet topiramate 25 mg tablet TAKE ONE HALF TABLET BY MOUTH TWICE A DAY topiramate 25 mg tablet TAKE ONE HALF TA BLET BY MOUTH TWICE A DAY completed topiramate 25 MG Oral Tablet [facility] ([facility]) topiramate 25 MG Oral Tablet topiramate 25 mg tablet TAKE ONE HALF TABLET BY MOUTH TWICE A DAY topiramate 25 mg tablet TAKE ONE HALF TA BLET BY MOUTH TWICE A DAY completed topiramate 25 MG Oral Tablet [facility] ([facility]) Buprenorphine 4 MG / Naloxone 1 MG Oral Strip buprenorphine 4 mg-naloxone [address] ONE FILM UNDER THE TONGUE EVERY DAY MAXIMUM DAILY DOSE 1 buprenorphine 4 mg-naloxone 1 mg subling ual film PLACE ONE FILM UNDER THE TONGUE EVERY DAY MAXIMUM DAILY DOSE 1 completed buprenorphine 4 MG / naloxone 1 MG Sublingual Film [facility] ([facility]) gabapentin 100 MG Oral Capsule gabapenti n 100 mg capsule TAKE ONE CAPSULE BY MOUTH THREE TIMES A DAY gabapentin 100 mg capsule TAKE ONE CAPSU LE BY MOUTH THREE TIMES A DAY completed antonia pentin 100 MG Oral Capsule [facility] ([facility]) Buprenorphine 2 MG / Naloxone 0.5 MG Sub lingual Tablet buprenorphine 2 mg- naloxone 0.5 mg sublingual tablet DISSOLVE ONE TABLET UNDER THE TONGUE EVERY EVENING MAX DAILY DOSE ONE TABLET buprenorphine 2 mg-naloxone 0.5 mg subli ngual tablet DISSOLVE ONE TABLET UNDER THE TONGUE EVERY EVENING MAX DAILY DOSE ONE TABLET completed bupreno rphine 2 MG / naloxone 0.5 MG Sublingual Tablet [facility] ([facility]) Sodium Fluoride 0.011 MG/MG Toothpaste [ Denta 5000 Plus] Denta 5000 Plus 1.1 % cream Denta 5000 Plus 1.1 % cream completed sodium fluoride 0.011 MG/MG Toothpaste [Denta 5000 Plus] [facility] ([facility]) Buprenorphine 2 MG / Naloxone 0.5 MG Sub lingual Tablet buprenorphine 2 mg- naloxone 0.5 mg sublingual tablet DISSOLVE ONE TABLET UNDER THE TONGUE EVERY EVENING MAX DAILY DOSE ONE TABLET buprenorphine 2 mg-naloxone 0.5 mg subli ngual tablet DISSOLVE ONE TABLET UNDER THE TONGUE EVERY EVENING MAX DAILY DOSE ONE TABLET completed bupreno rphine 2 MG / naloxone 0.5 MG Sublingual Tablet [facility] ([facility]) Cephalexin 500 MG Oral Capsule cephalexi n 500 mg capsule TAKE ONE CAPSULE BY MOUTH EVERY 8 HOURS cephalexin 500 mg capsule TAKE ONE CAPSU LE BY MOUTH EVERY 8 HOURS completed cephalexin 500 M G Oral Capsule [facility] ([facility]) Sodium Fluoride 0.011 MG/MG Toothpaste [ Denta 5000 Plus] Denta 5000 Plus 1.1 % cream Denta 5000 Plus 1.1 % cream completed sodium fluoride 0.011 MG/MG Toothpaste [Denta 5000 Plus] [facility] ([facility]) 0.5 ML Sumatriptan 6 MG Cartridge sumatr iptan 6 mg/0.5 mL subcutaneous pen injector USE ONE INJECTOR ONCE DAILY NEEDED FOR MIGRAINES sumatriptan 6 mg/0.5 mL subcutaneous pen injector USE ONE INJECTOR ONCE DAILY NEEDED FOR MIGRAINES completed 0.5 ML sumat riptan 12 MG/ML Cartridge [facility] ([facility]) tramadol hydrochloride 50 MG Oral Tablet tramadol 50 mg tablet TAKE ONE TABLET BY MOUTH EVERY 3 HOURS NEEDED FOR 14 DAYS MAXIMUM DAILY DOSE 3 tramadol 50 mg tablet TAKE ONE TABLET BY MOUTH EVERY 3 HOURS NEEDED FOR 14 DAYS MAXIMUM DAILY DOSE 3 completed tramadol hydrochloride 50 MG Oral Tablet [facility] ([facility]) Fluoxetine 10 MG Oral Capsule fluoxetine 10 mg capsule TAKE ONE CAPSULE BY MOUTH EVERY MORNING fluoxetine 10 mg capsule TAKE ONE CAPSULE BY MOUTH ANNEL RY MORNING completed fluoxetine 10 MG Oral Capsule [facility] ([facility]) Clindamycin 300 MG Oral Capsule clindamy michele HCl 300 mg capsule TAKE ONE CAPSULE BY MOUTH EVERY 6 HOURS UNTIL FINISHED clindamycin HCl 300 mg capsule TAKE ONE CAPSULE BY MOUTH EVERY 6 HOURS UNTIL FINISHED completed clindamycin 300 MG Oral Capsule [facility] ([facility]) Chantix Starting Month Box 0.5 mg (11)-1 mg (42) tablets in dose pack USE DIRECTED PER BOX INSTRUCTIONS [id number] complet ed Chantix Starting Month Box 0.5 mg (11)-1 mg (42) tablets in dose pack [facility] ([facility]) buspirone hydrochloride 15 MG Oral Table t buspirone 15 mg tablet TAKE ONE TABLET BY MOUTH TWICE DAILY buspirone 15 mg tablet TAKE ONE TABLET B Y MOUTH TWICE DAILY completed buspirone hydroc hloride 15 MG Oral Tablet [facility] ([facility]) Ibuprofen 600 MG Oral Tablet ibuprofen 6 00 mg tablet TAKE ONE TABLET BY MOUTH EVERY 6 HOURS NEEDED ibuprofen 600 mg tablet TAKE ONE TABLET BY MOUTH EVERY 6 HOURS NEEDED completed ibupro fen 600 MG Oral Tablet [facility] ([facility]) 24 HR Divalproex Sodium 250 MG Extended Release Oral Tablet divalproex ER 250 mg tablet,extended release 24 hr TAKE ONE TABLET BY MOUTH AT BEDTIME FOR 7 DAYS, THEN TAKE TWO TABLETS BY MOUTH AT BEDTIME divalproex ER 250 mg tablet,extended release 24 hr TAKE ONE TABLET BY MOUTH AT BEDTIME FOR 7 DAYS, THEN TAKE TWO TABLETS BY MOUTH AT BEDTIME completed 24 HR divalproex sodium 250 MG Extended Release Oral Tablet [facility] ([facility]) buspirone hydrochloride 7.5 MG Oral Tabl et buspirone 7.5 mg tablet TAKE ONE TABLET BY MOUTH TWICE DAILY buspirone 7.5 mg tablet TAKE ONE TABLET BY MOUTH TWICE DAILY completed bu spirone hydrochloride 7.5 MG Oral Tablet [facility] ([facility]) Buprenorphine 2 MG / Naloxone 0.5 MG Ora l Strip buprenorphine 2 mg-naloxone 0.5 mg sublingual film DISSOLVE ONE FILM UNDER THE TONGUE ONCE DAILY MAX DAILY DOSE ONE FILM buprenorphine 2 mg-naloxone 0.5 mg subli ngual film DISSOLVE ONE FILM UNDER THE TONGUE ONCE DAILY MAX DAILY DOSE ONE FILM completed buprenorphine 2 MG / naloxone 0.5 MG Sublingual Film [facility] ([facility]) Ibuprofen 200 MG Oral Tablet ibuprofen 2 00 mg tablet TAKE 2 TABLETS BY MOUTH EVERY 4 6 HOURS NEEDED ibuprofen 200 mg tablet TAKE 2 TABLETS B Y MOUTH EVERY 4 6 HOURS NEEDED completed ib uprofen 200 MG Oral Tablet [facility] ([facility]) tramadol hydrochloride 50 MG Oral Tablet tramadol 50 mg tablet TAKE ONE TABLET BY MOUTH EVERY 3 HOURS NEEDED FOR 14 DAYS MAXIMUM DAILY DOSE 3 tramadol 50 mg tablet TAKE ONE TABLET BY MOUTH EVERY 3 HOURS NEEDED FOR 14 DAYS MAXIMUM DAILY DOSE 3 completed tramadol hydrochloride 50 MG Oral Tablet [facility] ([facility]) gabapentin 100 MG Oral Capsule gabapenti n 100 mg capsule TAKE ONE CAPSULE BY MOUTH THREE TIMES A DAY gabapentin 100 mg capsule TAKE ONE CAPSU LE BY MOUTH THREE TIMES A DAY completed antonia pentin 100 MG Oral Capsule [facility] ([facility]) Chantix Starting Month Box 0.5 mg (11)-1 mg (42) tablets in dose pack USE DIRECTED PER BOX INSTRUCTIONS [id number] complet ed Chantix Starting Month Box 0.5 mg (11)-1 mg (42) tablets in dose pack [facility] ([facility]) Sodium Fluoride 0.011 MG/MG Toothpaste [ Denta 5000 Plus] Denta 5000 Plus 1.1 % cream Denta 5000 Plus 1.1 % cream completed sodium fluoride 0.011 MG/MG Toothpaste [Denta 5000 Plus] [facility] ([facility]) Fluoxetine 10 MG Oral Capsule fluoxetine 10 mg capsule TAKE ONE CAPSULE BY MOUTH EVERY MORNING fluoxetine 10 mg capsule TAKE ONE CAPSULE BY MOUTH ANNEL RY MORNING completed fluoxetine 10 MG Oral Capsule [facility] ([facility]) Buprenorphine 2 MG / Naloxone 0.5 MG Sub lingual Tablet buprenorphine 2 mg- naloxone 0.5 mg sublingual tablet DISSOLVE ONE TABLET UNDER THE TONGUE EVERY EVENING MAX DAILY DOSE ONE TABLET buprenorphine 2 mg-naloxone 0.5 mg subli ngual tablet DISSOLVE ONE TABLET UNDER THE TONGUE EVERY EVENING MAX DAILY DOSE ONE TABLET completed bupreno rphine 2 MG / naloxone 0.5 MG Sublingual Tablet [facility] ([facility]) buspirone hydrochloride 15 MG Oral Table t buspirone 15 mg tablet TAKE ONE TABLET BY MOUTH TWICE DAILY buspirone 15 mg tablet TAKE ONE TABLET B Y MOUTH TWICE DAILY completed buspirone hydroc hloride 15 MG Oral Tablet [facility] ([facility]) Buprenorphine 8 MG / Naloxone 2 MG Oral Strip buprenorphine 8 mg-naloxone [address] ONE FILM UNDER THE TONGUE EVERY MORNING AND PLACE ONE FILM UNDER THE TONGUE EVERY EVENING TWO TIMES A DAY MAXIMUM DAILY DOSE 2 buprenorphine 8 mg-naloxone [address] ONE FILM UNDER THE TONGUE EVERY MORNING AND PLACE ONE FILM UNDER THE TONGUE EVERY EVENING TWO TIMES A DAY MAXIMUM DAILY DOSE 2 completed buprenorphine 8 MG / naloxone 2 MG Sublingual Film [facility] ([facility]) Doxycycline Monohydrate 100 MG Oral Caps ule doxycycline monohydrate 100 mg capsule TAKE ONE CAPSULE BY MOUTH EVERY 12 HOURS doxycycline monohydrate 100 mg capsule TAKE ONE CAPSULE BY MOUTH EVERY 12 HOURS completed doxycycline monohydrate 100 MG Oral Capsule [facility] ([facility]) Ibuprofen 200 MG Oral Tablet ibuprofen 2 00 mg tablet TAKE 2 TABLETS BY MOUTH EVERY 4 6 HOURS NEEDED ibuprofen 200 mg tablet TAKE 2 TABLETS B Y MOUTH EVERY 4 6 HOURS NEEDED completed ib uprofen 200 MG Oral Tablet [facility] ([facility]) Ibuprofen 200 MG Oral Tablet ibuprofen 2 00 mg tablet TAKE 2 TABLETS BY MOUTH EVERY 4 6 HOURS NEEDED ibuprofen 200 mg tablet TAKE 2 TABLETS B Y MOUTH EVERY 4 6 HOURS NEEDED completed ib uprofen 200 MG Oral Tablet [facility] ([facility]) Buprenorphine 8 MG / Naloxone 2 MG Subli ngual Tablet buprenorphine 8 mg-naloxone 2 mg sublingual tablet DISSOLVE ONE TABLET UNDER THE TONGUE TWICE DAILY MAX DAILY DOSE TWO TABLETS buprenorphine 8 mg-naloxone 2 mg subling ual tablet DISSOLVE ONE TABLET UNDER THE TONGUE TWICE DAILY MAX DAILY DOSE TWO TABLETS completed buprenorphine 8 MG / n aloxone 2 MG Sublingual Tablet [facility] ([facility]) topiramate 25 MG Oral Tablet topiramate 25 mg tablet TAKE ONE HALF TABLET BY MOUTH TWICE A DAY topiramate 25 mg tablet TAKE ONE HALF TA BLET BY MOUTH TWICE A DAY completed topiramate 25 MG Oral Tablet [facility] ([facility]) Fluoxetine 10 MG Oral Capsule fluoxetine 10 mg capsule TAKE ONE CAPSULE BY MOUTH EVERY MORNING fluoxetine 10 mg capsule TAKE ONE CAPSULE BY MOUTH ANNEL RY MORNING completed fluoxetine 10 MG Oral Capsule [facility] ([facility]) tramadol hydrochloride 50 MG Oral Tablet tramadol 50 mg tablet TAKE ONE TABLET BY MOUTH EVERY 3 HOURS NEEDED FOR 14 DAYS MAXIMUM DAILY DOSE 3 tramadol 50 mg tablet TAKE ONE TABLET BY MOUTH EVERY 3 HOURS NEEDED FOR 14 DAYS MAXIMUM DAILY DOSE 3 completed tramadol hydrochloride 50 MG Oral Tablet [facility] ([facility]) Cephalexin 500 MG Oral Capsule cephalexi n 500 mg capsule TAKE ONE CAPSULE BY MOUTH EVERY 8 HOURS cephalexin 500 mg capsule TAKE ONE CAPSU LE BY MOUTH EVERY 8 HOURS completed cephalexin 500 M G Oral Capsule [facility] ([facility]) Ibuprofen 200 MG Oral Tablet ibuprofen 2 00 mg tablet TAKE 2 TABLETS BY MOUTH EVERY 4 6 HOURS NEEDED ibuprofen 200 mg tablet TAKE 2 TABLETS B Y MOUTH EVERY 4 6 HOURS NEEDED completed ib uprofen 200 MG Oral Tablet [facility] ([facility]) Clindamycin 300 MG Oral Capsule clindamy michele HCl 300 mg capsule TAKE ONE CAPSULE BY MOUTH EVERY 6 HOURS UNTIL FINISHED clindamycin HCl 300 mg capsule TAKE ONE CAPSULE BY MOUTH EVERY 6 HOURS UNTIL FINISHED completed clindamycin 300 MG Oral Capsule [facility] ([facility]) Cephalexin 500 MG Oral Capsule cephalexi n 500 mg capsule TAKE ONE CAPSULE BY MOUTH EVERY 8 HOURS cephalexin 500 mg capsule TAKE ONE CAPSU LE BY MOUTH EVERY 8 HOURS completed cephalexin 500 M G Oral Capsule [facility] ([facility]) Doxycycline Monohydrate 100 MG Oral Caps ule doxycycline monohydrate 100 mg capsule TAKE ONE CAPSULE BY MOUTH EVERY 12 HOURS doxycycline monohydrate 100 mg capsule TAKE ONE CAPSULE BY MOUTH EVERY 12 HOURS completed doxycycline monohydrate 100 MG Oral Capsule [facility] ([facility]) Clindamycin 300 MG Oral Capsule clindamy michele HCl 300 mg capsule TAKE ONE CAPSULE BY MOUTH EVERY 6 HOURS UNTIL FINISHED clindamycin HCl 300 mg capsule TAKE ONE CAPSULE BY MOUTH EVERY 6 HOURS UNTIL FINISHED completed clindamycin 300 MG Oral Capsule [facility] ([facility]) Sodium Fluoride 0.011 MG/MG Toothpaste [ Denta 5000 Plus] Denta 5000 Plus 1.1 % cream Denta 5000 Plus 1.1 % cream completed sodium fluoride 0.011 MG/MG Toothpaste [Denta 5000 Plus] [facility] ([facility]) buspirone hydrochloride 15 MG Oral Table t buspirone 15 mg tablet TAKE ONE TABLET BY MOUTH TWICE DAILY buspirone 15 mg tablet TAKE ONE TABLET B Y MOUTH TWICE DAILY completed buspirone hydroc hloride 15 MG Oral Tablet [facility] ([facility]) buspirone hydrochloride 7.5 MG Oral Tabl et buspirone 7.5 mg tablet TAKE ONE TABLET BY MOUTH TWICE DAILY buspirone 7.5 mg tablet TAKE ONE TABLET BY MOUTH TWICE DAILY completed bu spirone hydrochloride 7.5 MG Oral Tablet [facility] ([facility]) gabapentin 100 MG Oral Capsule gabapenti n 100 mg capsule TAKE ONE CAPSULE BY MOUTH THREE TIMES A DAY gabapentin 100 mg capsule TAKE ONE CAPSU LE BY MOUTH THREE TIMES A DAY completed antonia pentin 100 MG Oral Capsule [facility] ([facility]) tramadol hydrochloride 50 MG Oral Tablet tramadol 50 mg tablet TAKE ONE TABLET BY MOUTH EVERY 3 HOURS NEEDED FOR 14 DAYS MAXIMUM DAILY DOSE 3 tramadol 50 mg tablet TAKE ONE TABLET BY MOUTH EVERY 3 HOURS NEEDED FOR 14 DAYS MAXIMUM DAILY DOSE 3 completed tramadol hydrochloride 50 MG Oral Tablet [facility]) gabapentin 300 MG Oral Capsule gabapenti n 300 mg capsule TAKE ONE CAPSULE BY MOUTH TWICE DAILY gabapentin 300 mg capsule TAKE ONE CAPSU LE BY MOUTH TWICE DAILY completed gabapentin 300 M G Oral Capsule [facility]) Sumatriptan 50 MG Oral Tablet sumatripta n 50 mg tablet TAKE 1 TABLET BY MOUTH NEEDED sumatriptan 50 mg tablet TAKE 1 TABLET BY MOUTH NEEDED completed sumatriptan 50 MG Oral Tablet AT [facility]) topiramate 25 MG Oral Tablet topiramate 25 mg tablet TAKE ONE HALF TABLET BY MOUTH TWICE A DAY topiramate 25 mg tablet TAKE ONE HALF TA BLET BY MOUTH TWICE A DAY completed topiramate 25 MG Oral Tablet [facility]) Citalopram 10 MG Oral Tablet citalopram 10 mg tablet TAKE ONE TABLET BY MOUTH EVERY MORNING citalopram 10 mg tablet TAKE ONE TABLET BY MOUTH EVERY MORNI NG completed citalopram 10 MG Oral Tablet [facility]) Sodium Fluoride 0.011 MG/MG Toothpaste [ Denta 5000 Plus] Denta 5000 Plus 1.1 % cream Denta 5000 Plus 1.1 % cream completed sodium fluoride 0.011 MG/MG Toothpaste [Denta 5000 Plus] [facility]) Ibuprofen 600 MG Oral Tablet ibuprofen 6 00 mg tablet TAKE ONE TABLET BY MOUTH EVERY 6 HOURS NEEDED ibuprofen 600 mg tablet TAKE ONE TABLET BY MOUTH EVERY 6 HOURS NEEDED completed ibupro fen 600 MG Oral Tablet [facility]) gabapentin 100 MG Oral Capsule gabapenti n 100 mg capsule TAKE ONE CAPSULE BY MOUTH THREE TIMES A DAY gabapentin 100 mg capsule TAKE ONE CAPSU LE BY MOUTH THREE TIMES A DAY completed antonia pentin 100 MG Oral Capsule [facility]) Sumatriptan 50 MG Oral Tablet sumatripta n 50 mg tablet TAKE 1 TABLET BY MOUTH NEEDED sumatriptan 50 mg tablet TAKE 1 TABLET BY MOUTH NEEDED completed sumatriptan 50 MG Oral Tablet AT [facility]) gabapentin 100 MG Oral Capsule gabapenti n 100 mg capsule TAKE ONE CAPSULE BY MOUTH THREE TIMES A DAY gabapentin 100 mg capsule TAKE ONE CAPSU LE BY MOUTH THREE TIMES A DAY completed antonia pentin 100 MG Oral Capsule [facility] ([facility]) Fluoxetine 10 MG Oral Capsule fluoxetine 10 mg capsule TAKE ONE CAPSULE BY MOUTH EVERY MORNING fluoxetine 10 mg capsule TAKE ONE CAPSULE BY MOUTH ANNEL RY MORNING completed fluoxetine 10 MG Oral Capsule [facility] ([facility]) Buprenorphine 2 MG / Naloxone 0.5 MG Sub lingual Tablet buprenorphine 2 mg- naloxone 0.5 mg sublingual tablet DISSOLVE ONE TABLET UNDER THE TONGUE EVERY EVENING MAX DAILY DOSE ONE TABLET buprenorphine 2 mg-naloxone 0.5 mg subli ngual tablet DISSOLVE ONE TABLET UNDER THE TONGUE EVERY EVENING MAX DAILY DOSE ONE TABLET completed bupreno rphine 2 MG / naloxone 0.5 MG Sublingual Tablet [facility] er) topiramate 25 MG Oral Tablet topiramate 25 mg tablet TAKE ONE HALF TABLET BY MOUTH TWICE A DAY topiramate 25 mg tablet TAKE ONE HALF TA BLET BY MOUTH TWICE A DAY completed topiramate 25 MG Oral Tablet [facility] ([facility]) gabapentin 100 MG Oral Capsule gabapenti n 100 mg capsule TAKE ONE CAPSULE BY MOUTH THREE TIMES A DAY gabapentin 100 mg capsule TAKE ONE CAPSU LE BY MOUTH THREE TIMES A DAY completed antonia pentin 100 MG Oral Capsule [facility] ([facility]) gabapentin 400 MG Oral Capsule gabapenti n 400 mg capsule TAKE ONE CAPSULE BY MOUTH TWICE DAILY gabapentin 400 mg capsule TAKE ONE CAPSU LE BY MOUTH TWICE DAILY completed gabapentin 400 M G Oral Capsule [facility] ([facility]) Citalopram 10 MG Oral Tablet citalopram 10 mg tablet TAKE ONE TABLET BY MOUTH EVERY MORNING citalopram 10 mg tablet TAKE ONE TABLET BY MOUTH EVERY MORNI NG completed citalopram 10 MG Oral Tablet [facility] ([facility]) Doxycycline Monohydrate 100 MG Oral Caps ule doxycycline monohydrate 100 mg capsule TAKE ONE CAPSULE BY MOUTH EVERY 12 HOURS doxycycline monohydrate 100 mg capsule TAKE ONE CAPSULE BY MOUTH EVERY 12 HOURS completed doxycycline monohydrate 100 MG Oral Capsule [facility] ([facility]) Buprenorphine 4 MG / Naloxone 1 MG Oral Strip buprenorphine 4 mg-naloxone [address] ONE FILM UNDER THE TONGUE EVERY DAY MAXIMUM DAILY DOSE 1 buprenorphine 4 mg-naloxone 1 mg subling ual film PLACE ONE FILM UNDER THE TONGUE EVERY DAY MAXIMUM DAILY DOSE 1 completed buprenorphine 4 MG / naloxone 1 MG Sublingual Film [facility] ([facility]) buspirone hydrochloride 7.5 MG Oral Tabl et buspirone 7.5 mg tablet TAKE ONE TABLET BY MOUTH TWICE DAILY buspirone 7.5 mg tablet TAKE ONE TABLET BY MOUTH TWICE DAILY completed bu spirone hydrochloride 7.5 MG Oral Tablet [facility] ([facility]) Fluoxetine 10 MG Oral Capsule fluoxetine 10 mg capsule TAKE ONE CAPSULE BY MOUTH EVERY MORNING fluoxetine 10 mg capsule TAKE ONE CAPSULE BY MOUTH ANNEL RY MORNING completed fluoxetine 10 MG Oral Capsule [facility] ([facility]) buspirone hydrochloride 7.5 MG Oral Tabl et buspirone 7.5 mg tablet TAKE ONE TABLET BY MOUTH TWICE DAILY buspirone 7.5 mg tablet TAKE ONE TABLET BY MOUTH TWICE DAILY completed bu spirone hydrochloride 7.5 MG Oral Tablet [facility] ([facility]) Buprenorphine 8 MG / Naloxone 2 MG Oral Strip buprenorphine 8 mg-naloxone [address] ONE FILM UNDER THE TONGUE EVERY MORNING AND PLACE ONE FILM UNDER THE TONGUE EVERY EVENING TWO TIMES A DAY MAXIMUM DAILY DOSE 2 buprenorphine 8 mg-naloxone [address] ONE FILM UNDER THE TONGUE EVERY MORNING AND PLACE ONE FILM UNDER THE TONGUE EVERY EVENING TWO TIMES A DAY MAXIMUM DAILY DOSE 2 completed buprenorphine 8 MG / naloxone 2 MG Sublingual Film [facility] ([facility]) tramadol hydrochloride 50 MG Oral Tablet tramadol 50 mg tablet TAKE ONE TABLET BY MOUTH EVERY 3 HOURS NEEDED FOR 14 DAYS MAXIMUM DAILY DOSE 3 tramadol 50 mg tablet TAKE ONE TABLET BY MOUTH EVERY 3 HOURS NEEDED FOR 14 DAYS MAXIMUM DAILY DOSE 3 completed tramadol hydrochloride 50 MG Oral Tablet [facility] ([facility]) Clindamycin 300 MG Oral Capsule clindamy michele HCl 300 mg capsule TAKE ONE CAPSULE BY MOUTH EVERY 6 HOURS UNTIL FINISHED clindamycin HCl 300 mg capsule TAKE ONE CAPSULE BY MOUTH EVERY 6 HOURS UNTIL FINISHED completed clindamycin 300 MG Oral Capsule [facility] ([facility]) Buprenorphine 2 MG / Naloxone 0.5 MG Sub lingual Tablet buprenorphine 2 mg- naloxone 0.5 mg sublingual tablet DISSOLVE ONE TABLET UNDER THE TONGUE EVERY EVENING MAX DAILY DOSE ONE TABLET buprenorphine 2 mg-naloxone 0.5 mg subli ngual tablet DISSOLVE ONE TABLET UNDER THE TONGUE EVERY EVENING MAX DAILY DOSE ONE TABLET completed bupreno rphine 2 MG / naloxone 0.5 MG Sublingual Tablet [facility] ([facility]) Buprenorphine 2 MG / Naloxone 0.5 MG Sub lingual Tablet buprenorphine 2 mg- naloxone 0.5 mg sublingual tablet DISSOLVE ONE TABLET UNDER THE TONGUE EVERY EVENING MAX DAILY DOSE ONE TABLET buprenorphine 2 mg-naloxone 0.5 mg subli ngual tablet DISSOLVE ONE TABLET UNDER THE TONGUE EVERY EVENING MAX DAILY DOSE ONE TABLET completed bupreno rphine 2 MG / naloxone 0.5 MG Sublingual Tablet [facility] ([facility]) Ibuprofen 600 MG Oral Tablet ibuprofen 6 00 mg tablet TAKE ONE TABLET BY MOUTH EVERY 6 HOURS NEEDED ibuprofen 600 mg tablet TAKE ONE TABLET BY MOUTH EVERY 6 HOURS NEEDED completed ibupro fen 600 MG Oral Tablet [facility] ([facility]) Buprenorphine 8 MG / Naloxone 2 MG Subli ngual Tablet buprenorphine 8 mg-naloxone 2 mg sublingual tablet DISSOLVE ONE TABLET UNDER THE TONGUE TWICE DAILY MAX DAILY DOSE TWO TABLETS buprenorphine 8 mg-naloxone 2 mg subling ual tablet DISSOLVE ONE TABLET UNDER THE TONGUE TWICE DAILY MAX DAILY DOSE TWO TABLETS completed buprenorphine 8 MG / n aloxone 2 MG Sublingual Tablet [facility] ([facility]) zolmitriptan 5 MG Oral Tablet zolmitript an 5 mg tablet TAKE ONE TABLET BY MOUTH ONCE DAILY NEEDED zolmitriptan 5 mg tablet TAKE ONE TABLET BY MOUTH ONCE DAILY NEEDED completed zolmit riptan 5 MG Oral Tablet [facility] ([facility]) Buprenorphine 4 MG / Naloxone 1 MG Oral Strip buprenorphine 4 mg-naloxone [address] ONE FILM UNDER THE TONGUE EVERY DAY MAXIMUM DAILY DOSE 1 buprenorphine 4 mg-naloxone 1 mg subling ual film PLACE ONE FILM UNDER THE TONGUE EVERY DAY MAXIMUM DAILY DOSE 1 completed buprenorphine 4 MG / naloxone 1 MG Sublingual Film [facility] ([facility]) 0.5 ML Sumatriptan 6 MG Cartridge sumatr iptan 6 mg/0.5 mL subcutaneous pen injector USE ONE INJECTOR ONCE DAILY NEEDED FOR MIGRAINES sumatriptan 6 mg/0.5 mL subcutaneous pen injector USE ONE INJECTOR ONCE DAILY NEEDED FOR MIGRAINES completed 0.5 ML sumat riptan 12 MG/ML Cartridge [facility] ([facility]) Doxycycline Monohydrate 100 MG Oral Caps ule doxycycline monohydrate 100 mg capsule TAKE ONE CAPSULE BY MOUTH EVERY 12 HOURS doxycycline monohydrate 100 mg capsule TAKE ONE CAPSULE BY MOUTH EVERY 12 HOURS completed doxycycline monohydrate 100 MG Oral Capsule [facility] ([facility]) Ibuprofen 200 MG Oral Tablet ibuprofen 2 00 mg tablet TAKE 2 TABLETS BY MOUTH EVERY 4 6 HOURS NEEDED ibuprofen 200 mg tablet TAKE 2 TABLETS B Y MOUTH EVERY 4 6 HOURS NEEDED completed ib uprofen 200 MG Oral Tablet [facility] ([facility]) tramadol hydrochloride 50 MG Oral Tablet tramadol 50 mg tablet TAKE ONE TABLET BY MOUTH EVERY 3 HOURS NEEDED FOR 14 DAYS MAXIMUM DAILY DOSE 3 tramadol 50 mg tablet TAKE ONE TABLET BY MOUTH EVERY 3 HOURS NEEDED FOR 14 DAYS MAXIMUM DAILY DOSE 3 completed tramadol hydrochloride 50 MG Oral Tablet [facility] ([facility]) buspirone hydrochloride 15 MG Oral Table t buspirone 15 mg tablet TAKE ONE TABLET BY MOUTH TWICE DAILY buspirone 15 mg tablet TAKE ONE TABLET B Y MOUTH TWICE DAILY completed buspirone hydroc hloride 15 MG Oral Tablet [facility] ([facility]) gabapentin 300 MG Oral Capsule gabapenti n 300 mg capsule TAKE ONE CAPSULE BY MOUTH TWICE DAILY gabapentin 300 mg capsule TAKE ONE CAPSU LE BY MOUTH TWICE DAILY completed gabapentin 300 M G Oral Capsule [facility] ([facility]) Cephalexin 500 MG Oral Capsule cephalexi n 500 mg capsule TAKE ONE CAPSULE BY MOUTH EVERY 8 HOURS cephalexin 500 mg capsule TAKE ONE CAPSU LE BY MOUTH EVERY 8 HOURS completed cephalexin 500 M G Oral Capsule [facility] ([facility]) Sumatriptan 50 MG Oral Tablet sumatripta n 50 mg tablet TAKE 1 TABLET BY MOUTH NEEDED sumatriptan 50 mg tablet TAKE 1 TABLET BY MOUTH NEEDED completed sumatriptan 50 MG Oral Tablet AT [facility] ([facility]) zolmitriptan 5 MG Oral Tablet zolmitript an 5 mg tablet TAKE ONE TABLET BY MOUTH ONCE DAILY NEEDED zolmitriptan 5 mg tablet TAKE ONE TABLET BY MOUTH ONCE DAILY NEEDED completed zolmit riptan 5 MG Oral Tablet [facility] ([facility]) Sodium Fluoride 0.011 MG/MG Toothpaste [ Denta 5000 Plus] Denta 5000 Plus 1.1 % cream Denta 5000 Plus 1.1 % cream completed sodium fluoride 0.011 MG/MG Toothpaste [Denta 5000 Plus] [facility] ([facility]) Sodium Fluoride 0.011 MG/MG Toothpaste [ Denta 5000 Plus] Denta 5000 Plus 1.1 % cream Denta 5000 Plus 1.1 % cream completed sodium fluoride 0.011 MG/MG Toothpaste [Denta 5000 Plus] [facility] ([facility]) Ibuprofen 200 MG Oral Tablet ibuprofen 2 00 mg tablet TAKE 2 TABLETS BY MOUTH EVERY 4 6 HOURS NEEDED ibuprofen 200 mg tablet TAKE 2 TABLETS B Y MOUTH EVERY 4 6 HOURS NEEDED completed ib uprofen 200 MG Oral Tablet [facility] ([facility]) Citalopram 10 MG Oral Tablet citalopram 10 mg tablet TAKE ONE TABLET BY MOUTH EVERY MORNING citalopram 10 mg tablet TAKE ONE TABLET BY MOUTH EVERY MORNI NG completed citalopram 10 MG Oral Tablet [facility] ([facility]) buspirone hydrochloride 7.5 MG Oral Tabl et buspirone 7.5 mg tablet TAKE ONE TABLET BY MOUTH TWICE DAILY buspirone 7.5 mg tablet TAKE ONE TABLET BY MOUTH TWICE DAILY completed bu spirone hydrochloride 7.5 MG Oral Tablet [facility] ([facility]) zolmitriptan 5 MG Oral Tablet zolmitript an 5 mg tablet TAKE ONE TABLET BY MOUTH ONCE DAILY NEEDED zolmitriptan 5 mg tablet TAKE ONE TABLET BY MOUTH ONCE DAILY NEEDED completed zolmit riptan 5 MG Oral Tablet [facility] ([facility]) Cephalexin 500 MG Oral Capsule cephalexi n 500 mg capsule TAKE ONE CAPSULE BY MOUTH EVERY 8 HOURS cephalexin 500 mg capsule TAKE ONE CAPSU LE BY MOUTH EVERY 8 HOURS completed cephalexin 500 M G Oral Capsule [facility] ([facility]) Cephalexin 500 MG Oral Capsule cephalexi n 500 mg capsule TAKE ONE CAPSULE BY MOUTH EVERY 8 HOURS cephalexin 500 mg capsule TAKE ONE CAPSU LE BY MOUTH EVERY 8 HOURS completed cephalexin 500 M G Oral Capsule [facility] ([facility]) Buprenorphine 4 MG / Naloxone 1 MG Oral Strip buprenorphine 4 mg-naloxone [address] ONE FILM UNDER THE TONGUE EVERY DAY MAXIMUM DAILY DOSE 1 buprenorphine 4 mg-naloxone 1 mg subling ual film PLACE ONE FILM UNDER THE TONGUE EVERY DAY MAXIMUM DAILY DOSE 1 completed buprenorphine 4 MG / naloxone 1 MG Sublingual Film [facility] ([facility]) topiramate 50 MG Oral Tablet topiramate 50 mg tablet TAKE ONE TABLET BY MOUTH ONCE DAILY topiramate 50 mg tablet TAKE ONE TABLET BY MOUTH ONCE DAILY completed topiramate 50 MG Oral Tab let [facility] ([facility]) Buprenorphine 4 MG / Naloxone 1 MG Oral Strip buprenorphine 4 mg-naloxone [address] ONE FILM UNDER THE TONGUE EVERY DAY MAXIMUM DAILY DOSE 1 buprenorphine 4 mg-naloxone 1 mg subling ual film PL[address] ONE FILM UNDER THE TONGUE EVERY DAY MAXIMUM DAILY DOSE 1 completed buprenorphine 4 MG / naloxone 1 MG Sublingual Film [facility] ([facility]) Fluoxetine 10 MG Oral Capsule fluoxetine 10 mg capsule TAKE ONE CAPSULE BY MOUTH EVERY MORNING fluoxetine 10 mg capsule TAKE ONE CAPSULE BY MOUTH ANNEL RY MORNING completed fluoxetine 10 MG Oral Capsule [facility] ([facility]) Buprenorphine 4 MG / Naloxone 1 MG Oral Strip buprenorphine 4 mg-naloxone [address] ONE FILM UNDER THE TONGUE EVERY DAY MAXIMUM DAILY DOSE 1 buprenorphine 4 mg-naloxone 1 mg subling ual film PL[address] ONE FILM UNDER THE TONGUE EVERY DAY MAXIMUM DAILY DOSE 1 completed buprenorphine 4 MG / naloxone 1 MG Sublingual Film [facility] ([facility]) Cephalexin 500 MG Oral Capsule cephalexi n 500 mg capsule TAKE ONE CAPSULE BY MOUTH EVERY 8 HOURS cephalexin 500 mg capsule TAKE ONE CAPSU LE BY MOUTH EVERY 8 HOURS completed cephalexin 500 M G Oral Capsule [facility] ([facility]) Ibuprofen 200 MG Oral Tablet ibuprofen 2 00 mg tablet TAKE 2 TABLETS BY MOUTH EVERY 4 6 HOURS NEEDED ibuprofen 200 mg tablet TAKE 2 TABLETS B Y MOUTH EVERY 4 6 HOURS NEEDED completed ib uprofen 200 MG Oral Tablet [facility] ([facility]) Buprenorphine 4 MG / Naloxone 1 MG Oral Strip buprenorphine 4 mg-naloxone [address] ONE FILM UNDER THE TONGUE EVERY DAY MAXIMUM DAILY DOSE 1 buprenorphine 4 mg-naloxone 1 mg subling ual film PL[address] ONE FILM UNDER THE TONGUE EVERY DAY MAXIMUM DAILY DOSE 1 completed buprenorphine 4 MG / naloxone 1 MG Sublingual Film [facility] ([facility]) Buprenorphine 8 MG / Naloxone 2 MG Subli ngual Tablet buprenorphine 8 mg-naloxone 2 mg sublingual tablet DISSOLVE ONE TABLET UNDER THE TONGUE TWICE DAILY MAX DAILY DOSE TWO TABLETS buprenorphine 8 mg-naloxone 2 mg subling ual tablet DISSOLVE ONE TABLET UNDER THE TONGUE TWICE DAILY MAX DAILY DOSE TWO TABLETS completed buprenorphine 8 MG / n aloxone 2 MG Sublingual Tablet [facility] ([facility]) gabapentin 100 MG Oral Capsule gabapenti n 100 mg capsule TAKE ONE CAPSULE BY MOUTH THREE TIMES A DAY gabapentin 100 mg capsule TAKE ONE CAPSU LE BY MOUTH THREE TIMES A DAY completed antonia pentin 100 MG Oral Capsule [facility] ([facility]) gabapentin 300 MG Oral Capsule gabapenti n 300 mg capsule TAKE ONE CAPSULE BY MOUTH TWICE DAILY gabapentin 300 mg capsule TAKE ONE CAPSU LE BY MOUTH TWICE DAILY completed gabapentin 300 M G Oral Capsule [facility] ([facility]) buspirone hydrochloride 7.5 MG Oral Tabl et buspirone 7.5 mg tablet TAKE ONE TABLET BY MOUTH TWICE DAILY buspirone 7.5 mg tablet TAKE ONE TABLET BY MOUTH TWICE DAILY completed bu spirone hydrochloride 7.5 MG Oral Tablet [facility] ([facility]) 0.5 ML Sumatriptan 6 MG Cartridge sumatr iptan 6 mg/0.5 mL subcutaneous pen injector USE ONE INJECTOR ONCE DAILY NEEDED FOR MIGRAINES sumatriptan 6 mg/0.5 mL subcutaneous pen injector USE ONE INJECTOR ONCE DAILY NEEDED FOR MIGRAINES completed 0.5 ML sumat riptan 12 MG/ML Cartridge [facility] ([facility]) 0.5 ML Sumatriptan 6 MG Cartridge sumatr iptan 6 mg/0.5 mL subcutaneous pen injector USE ONE INJECTOR ONCE DAILY NEEDED FOR MIGRAINES sumatriptan 6 mg/0.5 mL subcutaneous pen injector USE ONE INJECTOR ONCE DAILY NEEDED FOR MIGRAINES completed 0.5 ML sumat riptan 12 MG/ML Cartridge [facility] ([facility]) Clindamycin 300 MG Oral Capsule clindamy michele HCl 300 mg capsule TAKE ONE CAPSULE BY MOUTH EVERY 6 HOURS UNTIL FINISHED clindamycin HCl 300 mg capsule TAKE ONE CAPSULE BY MOUTH EVERY 6 HOURS UNTIL FINISHED completed clindamycin 300 MG Oral Capsule [facility] ([facility]) Sumatriptan 50 MG Oral Tablet sumatripta n 50 mg tablet TAKE 1 TABLET BY MOUTH NEEDED sumatriptan 50 mg tablet TAKE 1 TABLET BY MOUTH NEEDED completed sumatriptan 50 MG Oral Tablet AT [facility] ([facility]) buspirone hydrochloride 7.5 MG Oral Tabl et buspirone 7.5 mg tablet TAKE ONE TABLET BY MOUTH TWICE DAILY buspirone 7.5 mg tablet TAKE ONE TABLET BY MOUTH TWICE DAILY completed bu spirone hydrochloride 7.5 MG Oral Tablet [facility] ([facility]) Sodium Fluoride 0.011 MG/MG Toothpaste [ Denta 5000 Plus] Denta 5000 Plus 1.1 % cream Denta 5000 Plus 1.1 % cream completed sodium fluoride 0.011 MG/MG Toothpaste [Denta 5000 Plus] [facility] ([facility]) Doxycycline Monohydrate 100 MG Oral Caps ule doxycycline monohydrate 100 mg capsule TAKE ONE CAPSULE BY MOUTH EVERY 12 HOURS doxycycline monohydrate 100 mg capsule TAKE ONE CAPSULE BY MOUTH EVERY 12 HOURS completed doxycycline monohydrate 100 MG Oral Capsule [facility] ([facility]) Clindamycin 300 MG Oral Capsule clindamy michele HCl 300 mg capsule TAKE ONE CAPSULE BY MOUTH EVERY 6 HOURS UNTIL FINISHED clindamycin HCl 300 mg capsule TAKE ONE CAPSULE BY MOUTH EVERY 6 HOURS UNTIL FINISHED completed clindamycin 300 MG Oral Capsule [facility] ([facility]) topiramate 25 MG Oral Tablet topiramate 25 mg tablet TAKE ONE HALF TABLET BY MOUTH TWICE A DAY topiramate 25 mg tablet TAKE ONE HALF TA BLET BY MOUTH TWICE A DAY completed topiramate 25 MG Oral Tablet [facility] ([facility]) Buprenorphine 2 MG / Naloxone 0.5 MG Sub lingual Tablet buprenorphine 2 mg- naloxone 0.5 mg sublingual tablet DISSOLVE ONE TABLET UNDER THE TONGUE EVERY EVENING MAX DAILY DOSE ONE TABLET buprenorphine 2 mg-naloxone 0.5 mg subli ngual tablet DISSOLVE ONE TABLET UNDER THE TONGUE EVERY EVENING MAX DAILY DOSE ONE TABLET completed bupreno rphine 2 MG / naloxone 0.5 MG Sublingual Tablet [facility] ([facility]) Clindamycin 300 MG Oral Capsule clindamy michele HCl 300 mg capsule TAKE ONE CAPSULE BY MOUTH EVERY 6 HOURS UNTIL FINISHED clindamycin HCl 300 mg capsule TAKE ONE CAPSULE BY MOUTH EVERY 6 HOURS UNTIL FINISHED completed clindamycin 300 MG Oral Capsule [facility] ([facility]) Ibuprofen 200 MG Oral Tablet ibuprofen 2 00 mg tablet TAKE 2 TABLETS BY MOUTH EVERY 4 6 HOURS NEEDED ibuprofen 200 mg tablet TAKE 2 TABLETS B Y MOUTH EVERY 4 6 HOURS NEEDED completed ib uprofen 200 MG Oral Tablet [facility] ([facility]) topiramate 50 MG Oral Tablet topiramate 50 mg tablet TAKE ONE TABLET BY MOUTH ONCE DAILY topiramate 50 mg tablet TAKE ONE TABLET BY MOUTH ONCE DAILY completed topiramate 50 MG Oral Tab let [facility] ([facility]) gabapentin 100 MG Oral Capsule gabapenti n 100 mg capsule TAKE ONE CAPSULE BY MOUTH THREE TIMES A DAY gabapentin 100 mg capsule TAKE ONE CAPSU LE BY MOUTH THREE TIMES A DAY completed antonia pentin 100 MG Oral Capsule [facility] ([facility]) Clindamycin 300 MG Oral Capsule clindamy michele HCl 300 mg capsule TAKE ONE CAPSULE BY MOUTH EVERY 6 HOURS UNTIL FINISHED clindamycin HCl 300 mg capsule TAKE ONE CAPSULE BY MOUTH EVERY 6 HOURS UNTIL FINISHED completed clindamycin 300 MG Oral Capsule [facility] ([facility]) 0.5 ML Sumatriptan 6 MG Cartridge sumatr iptan 6 mg/0.5 mL subcutaneous pen injector USE ONE INJECTOR ONCE DAILY NEEDED FOR MIGRAINES sumatriptan 6 mg/0.5 mL subcutaneous pen injector USE ONE INJECTOR ONCE DAILY NEEDED FOR MIGRAINES completed 0.5 ML sumat riptan 12 MG/ML Cartridge [facility] ([facility]) Buprenorphine 8 MG / Naloxone 2 MG Oral Strip buprenorphine 8 mg-naloxone [address] ONE FILM UNDER THE TONGUE EVERY MORNING AND PLACE ONE FILM UNDER THE TONGUE EVERY EVENING TWO TIMES A DAY MAXIMUM DAILY DOSE 2 buprenorphine 8 mg-naloxone [address] ONE FILM UNDER THE TONGUE EVERY MORNING AND PLACE ONE FILM UNDER THE TONGUE EVERY EVENING TWO TIMES A DAY MAXIMUM DAILY DOSE 2 completed buprenorphine 8 MG / naloxone 2 MG Sublingual Film [facility] ([facility]) tramadol hydrochloride 50 MG Oral Tablet tramadol 50 mg tablet TAKE ONE TABLET BY MOUTH EVERY 3 HOURS NEEDED FOR 14 DAYS MAXIMUM DAILY DOSE 3 tramadol 50 mg tablet TAKE ONE TABLET BY MOUTH EVERY 3 HOURS NEEDED FOR 14 DAYS MAXIMUM DAILY DOSE 3 completed tramadol hydrochloride 50 MG Oral Tablet [facility] ([facility]) topiramate 50 MG Oral Tablet topiramate 50 mg tablet TAKE ONE TABLET BY MOUTH ONCE DAILY topiramate 50 mg tablet TAKE ONE TABLET BY MOUTH ONCE DAILY completed topiramate 50 MG Oral Tab let [facility] ([facility]) Buprenorphine 4 MG / Naloxone 1 MG Oral Strip buprenorphine 4 mg-naloxone 1 mg sublingual film PLACE ONE FILM UNDER THE TONGUE EVERY DAY MAXIMUM DAILY DOSE 1 buprenorphine 4 mg-naloxone 1 mg subling ual film PLACE ONE FILM UNDER THE TONGUE EVERY DAY MAXIMUM DAILY DOSE 1 completed buprenorphine 4 MG / naloxone 1 MG Sublingual Film BLAKE ([facility]) topiramate 25 MG Oral Tablet topiramate 25 mg tablet TAKE ONE HALF TABLET BY MOUTH TWICE A DAY topiramate 25 mg tablet TAKE ONE HALF TA BLET BY MOUTH TWICE A DAY completed topiramate 25 MG Oral Tablet STEPHEN ([facility]) Sumatriptan 50 MG Oral Tablet sumatripta n 50 mg tablet TAKE 1 TABLET BY MOUTH NEEDED sumatriptan 50 mg tablet TAKE 1 TABLET BY MOUTH NEEDED completed sumatriptan 50 MG Oral Tablet AT [facility] ([facility]) buspirone hydrochloride 7.5 MG Oral Tabl et buspirone 7.5 mg tablet TAKE ONE TABLET BY MOUTH TWICE DAILY buspirone 7.5 mg tablet TAKE ONE TABLET BY MOUTH TWICE DAILY completed bu spirone hydrochloride 7.5 MG Oral Tablet STEPHEN ([facility]) Cephalexin 500 MG Oral Capsule cephalexi n 500 mg capsule TAKE ONE CAPSULE BY MOUTH EVERY 8 HOURS cephalexin 500 mg capsule TAKE ONE CAPSU LE BY MOUTH EVERY 8 HOURS completed cephalexin 500 M G Oral Capsule STEPHEN ([facility]) Citalopram 10 MG Oral Tablet citalopram 10 mg tablet TAKE ONE TABLET BY MOUTH EVERY MORNING citalopram 10 mg tablet TAKE ONE TABLET BY MOUTH EVERY MORNI NG completed citalopram 10 MG Oral Tablet STEPHEN ([facility]) Sumatriptan 50 MG Oral Tablet sumatripta n 50 mg tablet TAKE 1 TABLET BY MOUTH NEEDED sumatriptan 50 mg tablet TAKE 1 TABLET BY MOUTH NEEDED completed sumatriptan 50 MG Oral Tablet AT [facility]) Insurance Providers Payer name Policy type / Coverage type Policy ID Covered republican ID Covered republican's relationship to lindsey Policy Lindsey Plan Information Managed Care [place] P [id number] S [id number] Medicaid S [id number] S [id number] SELF PAY UNAVAILABLE SP UNAVAILA BLE Sliding Fee Scale P [id number] S [id number] UN COMMUNITY PLAN MCDO [id number] SP [id number] UNHC XIX HMO-O/P [id number] 18 [id number] [facility]-O/P [id number] 18 [id number] ROSITA [id number] SP [id number] SELF PAY ONLY [id number] Problems, Conditions, and Diagnoses Code Display Name Description Problem Type Effective Dates Data Source(s) [id number] Cervical lymphadenopathy Cervical Lymphadenopathy Prob bautista 04/20/2021 12:00:00 AM EDT BLAKE ([facility]) [id number] Cervical lymphadenopathy Cervical Lymphadenopathy Prob bautista 04/20/2021 12:00:00 AM EDT [facility] ([facility]) [id number] Kidney stone Kidney stone Problem 11/30/2020 12:00:00 A M EDT MEDENT ([facility]) [id number] Migraine Migraine Problem 11/30/2020 12:00:00 AM ED T MEDENT ([facility]) [id number] Tobacco user Tobacco User Problem 10/16/2020 12:00:00 A M DAMON LOZANO ([facility]) [id number] Tobacco user Tobacco User Problem 10/16/2020 12:00:00 A M DAMON LOZANO ([facility]) [id number] Tobacco user Tobacco User Problem 10/16/2020 12:00:00 A M EST BLAKE ([facility]) [id number] Tobacco user Tobacco User Problem 10/16/2020 12:00:00 A M EST BLAKE ([facility]) [id number] Tobacco user Tobacco User Problem 10/16/2020 12:00:00 A M EST BLAKE ([facility]) [id number] Tobacco user Tobacco User Problem 10/16/2020 12:00:00 A M DAOMN LOZANO ([facility]) [id number] Migraine Migraine Problem 08/11/2020 12:00:00 AM LUCIANA LOZANO ([facility]) [id number] Restless legs Restless Legs Problem 08/11/2020 12:00:00 AM EST BLAKE ([facility]) [id number] Opioid dependence Opioid Dependence Problem 08/11/2020 12:00:00 AM EST BLAKE ([facility]) [id number] Generalized anxiety disorder Generalized Anxiety Disor kahil Problem 08/11/2020 12:00:00 AM EST [facility] ([facility]) [id number] Migraine Migraine Problem 08/11/2020 12:00:00 AM ES Kellen LOZANO ([facility]) [id number] Restless legs Restless Legs Problem 08/11/2020 12:00:00 AM EST BLAKE ([facility]) 04196970 Opioid dependence Opioid Dependence Problem 08/11/2020 12:00:00 AM EST BLAKE ([facility]) [id number] Generalized anxiety disorder Generalized Anxiety Disor akhil Problem 08/11/2020 12:00:00 AM EST [facility] ([facility]) [id number] Migraine Migraine Problem 08/11/2020 12:00:00 AM LUCIANA Foreman BLAKE ([facility]) [id number] Restless legs Restless Legs Problem 08/11/2020 12:00:00 AM EST BLAKE ([facility]) [id number] Opioid dependence Opioid Dependence Problem 08/11/2020 12:00:00 AM EST [facility]LAKE ([facility]) [id number] Generalized anxiety disorder Generalized Anxiety Disor akhil Problem 08/11/2020 12:00:00 AM EST [facility] ([facility]) [id number] Migraine Migraine Problem 08/11/2020 12:00:00 AM LUCIANA Foreman [facility] ([facility]) [id number] Restless legs Restless Legs Problem 08/11/2020 12:00:00 AM EST [facility]LAKE ([facility]) 84784168 Opioid dependence Opioid Dependence Problem 08/11/2020 12:00:00 AM EST [facility]LAKE ([facility]) 62204119 Generalized anxiety disorder Generalized Anxiety Disor akhil Problem 08/11/2020 12:00:00 AM EST [facility] ([facility]) [id number] Migraine Migraine Problem 08/11/2020 12:00:00 AM LUCIANA Foreman [place] ([facility]) 22795040 Restless legs Restless Legs Problem 08/11/2020 12:00:00 AM EST [facility]LAKE ([facility]) 84439577 Opioid dependence Opioid Dependence Problem 08/11/2020 12:00:00 AM EST [facility]LAKE ([facility]) [id number] Generalized anxiety disorder Generalized Anxiety Disor akhil Problem 08/11/2020 12:00:00 AM EST [facility]KE ([facility]) [id number] Migraine Migraine Problem 08/11/2020 12:00:00 AM ES Kellen [facility]LAKE ([facility]) [id number] Restless legs Restless Legs Problem 08/11/2020 12:00:00 AM DAMON LOZANO ([facility]) 32454161 Opioid dependence Opioid Dependence Problem 08/11/2020 12:00:00 AM DAMON LOZANO ([facility]) 65665529 Generalized anxiety disorder Generalized Anxiety Disor akhil Problem 08/11/2020 12:00:00 AM DAMON LOZANO ([facility]) [id number] Migraine Migraine Problem 08/11/2020 12:00:00 AM LUCIANA LOZANO ([facility]) 66058498 Restless legs Restless Legs Problem 08/11/2020 12:00:00 AM DAMON LOZANO ([facility]) 31374801 Opioid dependence Opioid Dependence Problem 08/11/2020 12:00:00 AM DAMON LOZANO ([facility]) 32725441 Generalized anxiety disorder Generalized Anxiety Disor akhil Problem 08/11/2020 12:00:00 AM DAMON LOZANO ([facility]) 09342702 Migraine Migraine Problem 08/11/2020 12:00:00 AM LUCIANA LOZANO ([facility]) 68074276 Restless legs Restless Legs Problem 08/11/2020 12:00:00 AM DAMON LOZANO ([facility]) 30654166 Opioid dependence Opioid Dependence Problem 08/11/2020 12:00:00 AM DAMON LOZANO ([facility]) 43479650 Generalized anxiety disorder Generalized Anxiety Disor akhil Problem 08/11/2020 12:00:00 AM DAMON LOZANO ([facility]) Surgeries/Procedures Procedure Description Date Indications Data Source(s) OFFICE OUTPATIENT VISIT 25 MINUTES 06/18/2021 12:00:00 AM EDT MEDENT ([facility]) US, neck, soft tissue 04/20/2021 12:00:00 AM EDT BLAKE ([facility]) OFFICE OUTPATIENT VISIT 25 MINUTES 03/10/2021 12:00:00 AM EDT MEDENT ([facility]) MRI BRAIN BRAIN STEM W/O CONTRAST MATERIAL 12/09/2020 12:00:00 AM EDT MEDENT ([facility]) MRI BRAIN BRAIN STEM W/O CONTRAST MATERIAL 12/09/2020 12:00:00 AM EDT MEDENT ([facility]) OFFICE OUTPATIENT NEW 60 MINUTES 11/30/2020 12:00:00 A M [facility] Results ID Date Data Source [id number] 04/12/2021 10:37:00 AM EDT [facility]) Name Value Range Interpretation Code Description Data Magui rce(s) Supporting Document(s) Thyrotropin [Units/volume] in Serum or Plasma 2.18 mIU/L 0.40-4.5 0 TSH W/reflex to FT4 STEPHEN ([facility]) ID Date Data Source [id number] 04/12/2021 10:37:00 AM EDT STEPHEN ([facility]) Name Value Range Interpretation Code Description Data Magui rce(s) Supporting Document(s) Glucose [Mass/volume] in Serum or Plasma 129 mg/dL 65-99 Above high normal Glucose STEPHEN ([facility]) Glomerular filtration rate/1.73 sq M.pre dicted among non-blacks [Volume Rate/Area] in Serum, Plasma or Blood by Creatinine-based formula (CKD-EPI) 114 mL/min/1.73m2 > or = 60 eGFR Non-afr. [place]an BLAKE ([facility]) Creatinine [Mass/volume] in Serum or Plasma 0.88 mg/dL 0.60-1.35 Creatinine STEPHEN ([facility]) Urea nitrogen [Mass/volume] in Serum or Plasma 14 mg/dL 7-25 Urea Nitrogen (BUN) STEPHEN ([facility]) Urea nitrogen/Creatinine [Mass Ratio] in Serum or Plasma not applic able 6-22 BUN/creatinine Ratio STEPHEN ([facility]) Glomerular filtration rate/1.73 sq M.pre dicted among blacks [Volume Rate/Area] in Serum, Plasma or Blood by Creatinine-based formula (CKD-EPI) 132 mL/min/1.73m2 > or = 60 eGFR BLAKE ([facility]) Potassium [Moles/volume] in Serum or Plasma 4.0 mmol/L 3.5-5.3 Potassium STEPHEN ([facility]) Sodium [Moles/volume] in Serum or Plasma 139 mmol/L 135-146 Sodium BLAKE ([facility]) Chloride [Moles/volume] in Serum or Plasma 103 mmol/L 98-110 Chloride BLAKE ([facility]) Calcium [Mass/volume] in Serum or Plasma 9.8 mg/dL 8.6-10.3 Calcium BLAKE ([facility]) Carbon dioxide, total [Moles/volume] in Serum or Plasma 27 mmol/L 20-32 Carbon Dioxide BLAKE ([facility]) Globulin [Mass/volume] in Serum by calculation 2.1 g/dL_(calc) 1.9- 3.7 Globulin STEPHEN ([facility]) Protein [Mass/volume] in Serum or Plasma 6.9 g/dL 6.1-8.1 Protein, Total STEPHEN ([facility]) Albumin [Mass/volume] in Serum or Plasma 4.8 g/dL 3.6-5.1 Albumin STEPHEN ([facility]) Aspartate aminotransferase [Enzymatic activity/volume] in Serum or Plasma 22 U/L 10-40 Ast STEPHEN ([facility]) Albumin/Globulin [Mass Ratio] in Serum or Plasma 2.3 (calc) 1.0-2 .5 Albumin/globulin Ratio STEPHEN ([facility]) Bilirubin.total [Mass/volume] in Serum or Plasma 0.5 mg/dL 0.2-1 .2 Bilirubin, Total BLAKE ([facility]) Alkaline phosphatase [Enzymatic activity/volume] in Serum or Plasma 78 U/L 36-130 Alkaline Phosphatase BLAKE ([facility]) Alanine aminotransferase [Enzymatic activity/volume] in Seru m or Plasma 26 U/L 9-46 Alt BLAKE ([facility]) ID Date Data Source [id number] 04/12/2021 10:37:00 AM EDT STEPHEN ([facility]) Name Value Range Interpretation Code Description Data Magui rce(s) Supporting Document(s) Cholesterol [Mass/volume] in Serum or Plasma 189 mg/dL <200 Cholesterol, Total BLAKE ([facility]) Triglyceride [Mass/volume] in Serum or Plasma 114 mg/dL <150 Triglycerides BLAKE ([facility]) Cholesterol in LDL [Mass/volume] in Serum or Plasma by calculation 124 mg/dL_(calc) <100 Above high normal LDL-cholesterol BLAKE ([facility]) Cholesterol in HDL [Mass/volume] in Serum or Plasma 43 mg/dL > or = 40 HDL Cholesterol BLAKE ([facility]) Cholesterol.total/Cholesterol in HDL [Mass Ratio] in Serum o r Plasma 4.4 calc <5.0 Chol/hdlc Ratio BLAKE ([facility]) Cholesterol non HDL [Mass/volume] in Serum or Plasma 146 mg/dL_( calc) <130 Above high normal Non HDL Cholesterol [facility] ([facility]) ID Date Data Source [id number] 04/12/2021 10:37:00 AM EDT [facility]) Name Value Range Interpretation Code Description Data Magui rce(s) Supporting Document(s) Thyrotropin [Units/volume] in Serum or Plasma 2.18 mIU/L 0.40-4.5 0 TSH W/reflex to FT4 [facility]) ID Date Data Source [id number] 04/12/2021 10:37:00 AM EDT [facility]) Name Value Range Interpretation Code Description Data Magui rce(s) Supporting Document(s) Glucose [Mass/volume] in Serum or Plasma 129 mg/dL 65-99 Above high normal Glucose STEPHEN ([facility]) Creatinine [Mass/volume] in Serum or Plasma 0.88 mg/dL 0.60-1.35 Creatinine [facility]) Glomerular filtration rate/1.73 sq M.pre dicted among non-blacks [Volume Rate/Area] in Serum, Plasma or Blood by Creatinine-based formula (CKD-EPI) 114 mL/min/1.73m2 > or = 60 eGFR Non-afr. [place] BLAKE ([facility]) Urea nitrogen [Mass/volume] in Serum or Plasma 14 mg/dL 7-25 [facility]UN) [facility] Glomerular filtration rate/1.73 sq M.pre dicted among blacks [Volume Rate/Area] in Serum, Plasma or Blood by Creatinine-based formula (CKD-EPI) 132 mL/min/1.73m2 > or = 60 eGFR BLAKE ([facility]) Urea nitrogen/Creatinine [Mass Ratio] in Serum or Plasma not applic able 6-22 BUN/creatinine Ratio BLAKE ([facility]) Sodium [Moles/volume] in Serum or Plasma 139 mmol/L 135-146 Sodium BLAKE ([facility]) Potassium [Moles/volume] in Serum or Plasma 4.0 mmol/L 3.5-5.3 Potassium BLAKE ([facility]) Chloride [Moles/volume] in Serum or Plasma 103 mmol/L 98-110 Chloride STEPHEN ([facility]) Carbon dioxide, total [Moles/volume] in Serum or Plasma 27 mmol/L 20-32 Carbon Dioxide [facility]) Albumin [Mass/volume] in Serum or Plasma 4.8 g/dL 3.6-5.1 Albumin STEPHEN ([facility]) Protein [Mass/volume] in Serum or Plasma 6.9 g/dL 6.1-8.1 Protein, Total [facility]) Globulin [Mass/volume] in Serum by calculation 2.1 g/dL_(calc) 1.9- 3.7 Globulin [facility]) Calcium [Mass/volume] in Serum or Plasma 9.8 mg/dL 8.6-10.3 Calcium [facility]) Bilirubin.total [Mass/volume] in Serum or Plasma 0.5 mg/dL 0.2-1 .2 Bilirubin, Total BLAKE ([facility]) Alkaline phosphatase [Enzymatic activity/volume] in Serum or Plasma 78 U/L 36-130 Alkaline Phosphatase STEPHEN ([facility]) Albumin/Globulin [Mass Ratio] in Serum or Plasma 2.3 (calc) 1.0-2 .5 Albumin/globulin Ratio STEPHEN ([facility]) Alanine aminotransferase [Enzymatic activity/volume] in Seru m or Plasma 26 U/L 9-46 Alt STEPHEN ([facility]) Aspartate aminotransferase [Enzymatic activity/volume] in Serum or Plasma 22 U/L 10-40 Ast BLAKE ([facility]) ID Date Data Source [id number] 04/12/2021 10:37:00 AM EDT STEPHEN ([facility]) Name Value Range Interpretation Code Description Data Magui rce(s) Supporting Document(s) Cholesterol [Mass/volume] in Serum or Plasma 189 mg/dL <200 Cholesterol, Total BLAKE ([facility]) Cholesterol in HDL [Mass/volume] in Serum or Plasma 43 mg/dL > or = 40 HDL Cholesterol BLAKE ([facility]) Triglyceride [Mass/volume] in Serum or Plasma 114 mg/dL <150 Triglycerides BLAKE ([facility]) Cholesterol in LDL [Mass/volume] in Serum or Plasma by calculation 124 mg/dL_(calc) <100 Above high normal LDL-cholesterol BLAKE ([facility]) Cholesterol.total/Cholesterol in HDL [Mass Ratio] in Serum o r Plasma 4.4 calc <5.0 Chol/hdlc Ratio BLAKE ([facility]) Cholesterol non HDL [Mass/volume] in Serum or Plasma 146 mg/dL_( calc) <130 Above high normal Non HDL Cholesterol BLAKE ([facility]) ID Date Data Source [id number] 10/16/2020 12:42:00 PM EST STEPHEN ([facility]) Name Value Range Interpretation Code Description Data Magui rce(s) Supporting Document(s) HIV 1&2 screen centaur negative negative HIV 1&2 Scree n Centaur BLKAE ([facility]) ID Date Data Source [id number] 10/16/2020 12:42:00 PM EST STEPHEN ([facility]) Name Value Range Interpretation Code Description Data Magui rce(s) Supporting Document(s) hepatitis C virus vincent index 0.1 index <0.8 Hepatiti s C Virus Vincent Index [facility]) ID Date Data Source [id number] 10/16/2020 12:42:00 PM EST BLAKE ([facility]) Name Value Range Interpretation Code Description Data Magui rce(s) Supporting Document(s) HIV 1&2 screen centaur negative negative HIV 1&2 Scree n Breonnaaur BLAKE ([facility]) ID Date Data Source [id number] 10/16/2020 12:42:00 PM EST BLAKE ([facility]) Name Value Range Interpretation Code Description Data Magui rce(s) Supporting Document(s) hepatitis C virus vincent index 0.1 index <0.8 Hepatiti s C Virus Vincent Index [facility]LAKE ([facility]) ID Date Data Source [id number] 10/16/2020 12:42:00 PM EST BLAKE ([facility]) Name Value Range Interpretation Code Description Data Magui rce(s) Supporting Document(s) HIV 1&2 screen centaur negative negative HIV 1&2 Scree n Breonnaaur BLAKE ([facility]) ID Date Data Source [id number] 10/16/2020 12:42:00 PM EST BLAKE ([facility]) Name Value Range Interpretation Code Description Data Magui rce(s) Supporting Document(s) hepatitis C virus vincent index 0.1 index <0.8 Hepatiti s C Virus Vincent Index [facility]LAKE ([facility]) ID Date Data Source [id number] 10/16/2020 12:42:00 PM EST BLAKE ([facility]) Name Value Range Interpretation Code Description Data Magui rce(s) Supporting Document(s) HIV 1&2 screen centaur negative negative HIV 1&2 Scree n Breonnaaur BLAKE ([facility]) ID Date Data Source [id number] 10/16/2020 12:42:00 PM EST BLAKE ([facility]) Name Value Range Interpretation Code Description Data Magui rce(s) Supporting Document(s) hepatitis C virus vincent index 0.1 index <0.8 Hepatiti s C Virus Vincent Index [facility]) ID Date Data Source [id number] 10/16/2020 12:42:00 PM EST STEPHEN ([facility]) Name Value Range Interpretation Code Description Data Magui rce(s) Supporting Document(s) HIV 1&2 screen centaur negative negative HIV 1&2 Scree n Centaur STEPHEN ([facility]) ID Date Data Source [id number] 10/16/2020 12:42:00 PM EST [facility]) Name Value Range Interpretation Code Description Data Magui rce(s) Supporting Document(s) hepatitis C virus vincent index 0.1 index <0.8 Hepatiti s C Virus Vincent Index [facility]) ID Date Data Source [id number] 10/16/2020 12:30:00 PM EST [facility]) Name Value Range Interpretation Code Description Data Magui rce(s) Supporting Document(s) chlamydia DNA amplification negative negative Chlamydi a DNA Amplification STEPHEN ([facility]) GC DNA amplification negative negative GC DNA Amplific ation STEPHEN ([facility]) trichomonas vaginalis (amp) not detected negative Tricho monas Vaginalis (Amp) [facility]) ID Date Data Source [id number] 10/16/2020 12:30:00 PM EST [facility]) Name Value Range Interpretation Code Description Data Magui rce(s) Supporting Document(s) GC DNA amplification negative negative GC DNA Amplific ation STEPHEN ([facility]) chlamydia DNA amplification negative negative Chlamydi a DNA Amplification STEPHEN ([facility]) trichomonas vaginalis (amp) not detected negative Tricho monas Vaginalis (Amp) [facility]) ID Date Data Source [id number] 10/16/2020 12:30:00 PM EST [facility]) Name Value Range Interpretation Code Description Data Magui rce(s) Supporting Document(s) chlamydia DNA amplification negative negative Chlamydi a DNA Amplification BLAKE ([facility]) trichomonas vaginalis (amp) not detected negative Tricho monas Vaginalis (Amp) [facility]LAKE ([facility]) GC DNA amplification negative negative GC DNA Amplific ation [facility]) ID Date Data Source [id number] 10/16/2020 12:30:00 PM EST [facility]) Name Value Range Interpretation Code Description Data Magui rce(s) Supporting Document(s) GC DNA amplification negative negative [facility] trichomonas vaginalis (amp) not detected negative Tricho monas Vaginalis (Amp) [facility]) chlamydia DNA amplification negative negative Chlamydi a DNA Amplification [facility]) ID Date Data Source [id number] 10/16/2020 12:30:00 PM EST [facility]) Name Value Range Interpretation Code Description Data Magui rce(s) Supporting Document(s) GC DNA amplification negative negative GC DNA Amplific ation BLAKE ([facility]) chlamydia DNA amplification negative negative Chlamydi a DNA Amplification BLAKE ([facility]) trichomonas vaginalis (amp) not detected negative Tricho monas Vaginalis (Amp) [facility]) ID Date Data Source [id number] 08/18/2020 09:20:00 AM EST [facility]) Name Value Range Interpretation Code Description Data Magui rce(s) Supporting Document(s) ID Date Data Source [id number] 08/18/2020 09:20:00 AM EST BLAKE ([facility]) Name Value Range Interpretation Code Description Data Magui rce(s) Supporting Document(s) ID Date Data Source [id number] 08/18/2020 09:20:00 AM EST BLAKE ([facility]) Name Value Range Interpretation Code Description Data Magui rce(s) Supporting Document(s) ID Date Data Source [id number] 08/18/2020 09:20:00 AM EST BLAKE ([facility]) Name Value Range Interpretation Code Description Data Magui rce(s) Supporting Document(s) ID Date Data Source [id number] 08/18/2020 09:20:00 AM EST BLAKE [facility]) Name Value Range Interpretation Code Description Data Magui rce(s) Supporting Document(s) ID Date Data Source [id number] 08/18/2020 09:20:00 AM EST BLKAE [facility]) Name Value Range Interpretation Code Description Data Magui rce(s) Supporting Document(s) ID Date Data Source [id number] 08/11/2020 08:20:00 AM EST BLAKE [facility]) Name Value Range Interpretation Code Description Data Magui rce(s) Supporting Document(s) ID Date Data Source [id number] 08/11/2020 08:20:00 AM EST BLAKE ([facility]) Name Value Range Interpretation Code Description Data Magui rce(s) Supporting Document(s) ID Date Data Source [id number] 08/11/2020 08:20:00 AM EST [facility]LA[facility]) Name Value Range Interpretation Code Description Data Magui rce(s) Supporting Document(s) ID Date Data Source [id number] 08/11/2020 08:20:00 AM EST [facility] ([facility]) Name Value Range Interpretation Code Description Data Magui rce(s) Supporting Document(s) ID Date Data Source [id number] 08/11/2020 08:20:00 AM EST [facility] ([facility]) Name Value Range Interpretation Code Description Data Magui rce(s) Supporting Document(s) ID Date Data Source [id number] 08/11/2020 08:20:00 AM EST [facility] ([facility]) Name Value Range Interpretation Code Description Data Magui rce(s) Supporting Document(s) ID Date Data Source [id number] 08/11/2020 08:20:00 AM EST [facility] ([facility]) Name Value Range Interpretation Code Description Data Magui rce(s) Supporting Document(s) Procedure Social History No Information Vital Signs ID Date Data Source UNK Name Value Range Interpretation Code Description Data Source(s) Respiratory rate 12 /min 12 /min [facility] ( [facility]) Body weight 150.00 [lb_av] 150.00 [lb_av] MED T ([facility]) Body mass index (BMI) [Ratio] 25.7 kg/m2 25.7 k g/m2 [facility] ([facility]) [place] body weight 130 [lb_av] 130 [lb_av] MEDEN T ([facility]) Body height 64 [in_i] 64 [in_i] [facility] 5'4" Diastolic blood pressure 83 mm[Hg] 83 mm[Hg] BLAKE ([facility]) Body height 69 [in_i] 69 [in_i] [facility] ([facility]) Body mass index (BMI) [Ratio] 21.6 kg/m2 21.6 k g/m2 [facility] ([facility]) Systolic blood pressure 145 mm[Hg] 145 mm[Hg] A THENA ([facility]) Body weight 2336 [oz_av] 2336 [oz_av] [facility] ([facility]) Diastolic blood pressure 83 mm[Hg] 83 mm[Hg] [facility] ([facility]) Body mass index (BMI) [Ratio] 21.6 kg/m2 21.6 k g/m2 [facility] ([facility]) Systolic blood pressure 145 mm[Hg] 145 mm[Hg] A THENA ([facility]) Body weight 2336 [oz_av] 2336 [oz_av] [facility] ([facility]) Body height 69 [in_i] 69 [in_i] [facility] ([facility]) Body height 69 [in_i] 69 [in_i] [facility] ([facility]) Body height 69 [in_i] 69 [in_i] [facility] ([facility]) Diastolic blood pressure 85 mm[Hg] 85 mm[Hg] [facility] ([facility]) Body height 69 [in_i] 69 [in_i] [facility] ([facility]) Body mass index (BMI) [Ratio] 20.7 kg/m2 20.7 k g/m2 [facility] ([facility]) Systolic blood pressure 141 mm[Hg] 141 mm[Hg] A THENA ([facility]) Body weight 2240 [oz_av] 2240 [oz_av] [facility] ([facility]) Diastolic blood pressure 85 mm[Hg] 85 mm[Hg] [facility] ([facility]) Body height 69 [in_i] 69 [in_i] [facility] ([facility]) Body mass index (BMI) [Ratio] 20.7 kg/m2 20.7 k g/m2 [facility] ([facility]) Systolic blood pressure 141 mm[Hg] 141 mm[Hg] A THENA ([facility]) Body weight 2240 [oz_av] 2240 [oz_av] [facility] ([facility]) Diastolic blood pressure 85 mm[Hg] 85 mm[Hg] [facility] ([facility]) Body height 69 [in_i] 69 [in_i] [facility] ([facility]) Body mass index (BMI) [Ratio] 20.7 kg/m2 20.7 k g/m2 [facility] ([facility]) Systolic blood pressure 141 mm[Hg] 141 mm[facility]Hg[facility] Body weight 2240 [oz_av] 2240 [oz_av] [facility] ([facility]) Body height 64 [in_i] 64 [in_i] MEDENT ([facility], ) 5'4" Respiratory rate 12 /min 12 /min MEDENT ( [facility] ) Body weight 150.00 [lb_av] 150.00 [lb_av] MEDEN T ([facility], ) Body mass index (BMI) [Ratio] 25.7 kg/m2 25.7 k g/m2 MEDENT ([facility] ) [place] body weight 130 [lb_av] 130 [lb_av] MEDEN T ([facility] ) Diastolic blood pressure 82 mm[Hg] 82 mm[Hg] [facility]LAKE ([facility]) Body height 69 [in_i] 69 [in_i] [facility] ([facility]) Diastolic blood pressure 82 mm[Hg] 82 mm[Hg] [facility] ([facility]) Body mass index (BMI) [Ratio] 20.5 kg/m2 20.5 k g/m2 [facility] ([facility]) Systolic blood pressure 129 mm[Hg] 129 mm[Hg] [facility] Body weight 2224 [oz_av] 2224 [oz_av] [facility] ([facility]) Diastolic blood pressure 82 mm[Hg] 82 mm[Hg] [facility] ([facility]) Body height 69 [in_i] 69 [in_i] [facility] ([facility]) Body mass index (BMI) [Ratio] 20.5 kg/m2 20.5 k g/m2 [facility] ([facility]) Systolic blood pressure 129 mm[Hg] 129 mm[Hg] [facility] Body weight 2224 [oz_av] 2224 [oz_av] [facility] ([facility]) Body height 69 [in_i] 69 [in_i] [facility] ([facility]) Body mass index (BMI) [Ratio] 20.5 kg/m2 20.5 k g/m2 [facility] ([facility]) Systolic blood pressure 129 mm[Hg] 129 mm[Hg] A VILMAA ([facility]) Body weight 2224 [oz_av] 2224 [oz_av] [facility] ([facility]) Diastolic blood pressure 82 mm[Hg] 82 mm[Hg] [facility] ([facility]) Body height 69 [in_i] 69 [in_i] [facility] ([facility]) Body mass index (BMI) [Ratio] 20.5 kg/m2 20.5 k g/m2 [facility] ([facility]) Systolic blood pressure 129 mm[Hg] 129 mm[Hg] A SANDY ([facility]) Body weight 2224 [oz_av] 2224 [oz_av] [facility] ([facility]) Body height 64 [in_i] 64 [in_i] [facility] 5'4" Body weight 150.00 [lb_av] 150.00 [lb_av] MEDEN T ([facility] ) Respiratory rate 12 /min 12 /min [facility] Body mass index (BMI) [Ratio] 25.7 kg/m2 25.7 k g/m2 MEDENT ([facility] ) [place] body weight 130 [lb_av] 130 [lb_av] MEDEN T ([facility] ) Diastolic blood pressure 68 mm[Hg] 68 mm[Hg] [facility]LAKE ([facility]) Body height 69 [in_i] 69 [in_i] [facility] ([facility]) Body mass index (BMI) [Ratio] 21.8 kg/m2 21.8 k g/m2 [facility] ([facility]) Systolic blood pressure 116 mm[Hg] 116 mm[Hg] A VILMAA ([facility]) Body weight 2360 [oz_av] 2360 [oz_av] [facility] ([facility]) Diastolic blood pressure 68 mm[Hg] 68 mm[Hg] [facility] ([facility]) Body height 69 [in_i] 69 [in_i] [facility] ([facility]) Body mass index (BMI) [Ratio] 21.8 kg/m2 21.8 k g/m2 [facility] ([facility]) Systolic blood pressure 116 mm[Hg] 116 mm[Hg] A THENA ([facility]) Body weight 2360 [oz_av] 2360 [oz_av] [facility] ([facility]) Diastolic blood pressure 68 mm[Hg] 68 mm[Hg] [facility] ([facility]) Body height 69 [in_i] 69 [in_i] [facility] ([facility]) Body mass index (BMI) [Ratio] 21.8 kg/m2 21.8 k g/m2 [facility] ([facility]) Systolic blood pressure 116 mm[Hg] 116 mm[Hg] [facility] Body weight 2360 [oz_av] 2360 [oz_av] [facility] ([facility]) Diastolic blood pressure 68 mm[Hg] 68 mm[Hg] [facility] ([facility]) Body height 69 [in_i] 69 [in_i] [facility] ([facility]) Body mass index (BMI) [Ratio] 21.8 kg/m2 21.8 k g/m2 [facility] ([facility]) Systolic blood pressure 116 mm[Hg] 116 mm[Hg] A THENA ([facility]) Body weight 2360 [oz_av] 2360 [oz_av] [facility] ([facility]) Diastolic blood pressure 68 mm[Hg] 68 mm[Hg] [facility] ([facility]) Body height 69 [in_i] 69 [in_i] [facility] ([facility]) Body mass index (BMI) [Ratio] 21.8 kg/m2 21.8 k g/m2 [facility] ([facility]) Systolic blood pressure 116 mm[Hg] 116 mm[Hg] A THENA ([facility]) Body weight 2360 [oz_av] 2360 [oz_av] [facility] ([facility]) Diastolic blood pressure 80 mm[Hg] 80 mm[Hg] [facility] ([facility]) Diastolic blood pressure 80 mm[Hg] 80 mm[Hg] [facility] ([facility]) Body height 69 [in_i] 69 [in_i] [facility] ([facility]) Body mass index (BMI) [Ratio] 23.1 kg/m2 23.1 k g/m2 [facility] ([facility]) Systolic blood pressure 127 mm[Hg] 127 mm[Hg] [facility] Body weight 2502 [oz_av] 2502 [oz_av] [facility] ([facility]) Body weight 2502 [oz_av] 2502 [oz_av] [facility] ([facility]) Body height 69 [in_i] 69 [in_i] [facility] ([facility]) Body mass index (BMI) [Ratio] 23.1 kg/m2 23.1 k g/m2 [facility] ([facility]) Systolic blood pressure 127 mm[Hg] 127 mm[Hg] A THENA ([facility]) Body weight 2502 [oz_av] 2502 [oz_av] [facility] ([facility]) Diastolic blood pressure 80 mm[Hg] 80 mm[Hg] [facility] ([facility]) Body height 69 [in_i] 69 [in_i] [facility] ([facility]) Body mass index (BMI) [Ratio] 23.1 kg/m2 23.1 k g/m2 [facility] ([facility]) Systolic blood pressure 127 mm[Hg] 127 mm[Hg] [facility] Body height 69 [in_i] 69 [in_i] [facility] ([facility]) Body mass index (BMI) [Ratio] 23.1 kg/m2 23.1 k g/m2 [facility] ([facility]) Systolic blood pressure 127 mm[Hg] 127 mm[Hg] A THENA ([facility]) Body weight 2502 [oz_av] 2502 [oz_av] [facility] ([facility]) Diastolic blood pressure 80 mm[Hg] 80 mm[Hg] [facility] ([facility]) Body height 69 [in_i] 69 [in_i] [facility] ([facility]) Body mass index (BMI) [Ratio] 23.1 kg/m2 23.1 k g/m2 [facility] ([facility]) Systolic blood pressure 127 mm[Hg] 127 mm[Hg] [facility] Body weight 2502 [oz_av] 2502 [oz_av] [facility] ([facility]) Diastolic blood pressure 80 mm[Hg] 80 mm[Hg] [facility] ([facility]) Diastolic blood pressure 80 mm[Hg] 80 mm[Hg] [facility] ([facility]) Body height 69 [in_i] 69 [in_i] [facility] ([facility]) Body mass index (BMI) [Ratio] 23.1 kg/m2 23.1 k g/m2 [facility] ([facility]) Systolic blood pressure 127 mm[Hg] 127 mm[Hg] [facility] Body weight 2502 [oz_av] 2502 [oz_av] [facility] ([facility]) Diastolic blood pressure 82 mm[Hg] 82 mm[Hg] [facility] ([facility]) Body height 69 [in_i] 69 [in_i] [facility] ([facility]) Body mass index (BMI) [Ratio] 22.7 kg/m2 22.7 k g/m2 [facility] ([facility]) Systolic blood pressure 125 mm[Hg] 125 mm[Hg] [facility] Body weight 2456 [oz_av] 2456 [oz_av] [facility] ([facility]) Diastolic blood pressure 82 mm[Hg] 82 mm[Hg] [facility] ([facility]) Body height 69 [in_i] 69 [in_i] [facility] ([facility]) Body mass index (BMI) [Ratio] 22.7 kg/m2 22.7 k g/m2 [facility] ([facility]) Systolic blood pressure 125 mm[Hg] 125 mm[Hg] [facility] Body weight 2456 [oz_av] 2456 [oz_av] [facility] ([facility]) Diastolic blood pressure 82 mm[Hg] 82 mm[Hg] [facility] ([facility]) Body height 69 [in_i] 69 [in_i] [facility] ([facility]) Body mass index (BMI) [Ratio] 22.7 kg/m2 22.7 k g/m2 [facility] ([facility]) Systolic blood pressure 125 mm[Hg] 125 mm[Hg] A THENA ([facility]) Body weight 2456 [oz_av] 2456 [oz_av] [facility] ([facility]) Diastolic blood pressure 82 mm[Hg] 82 mm[Hg] [facility] ([facility]) Body height 69 [in_i] 69 [in_i] [facility] ([facility]) Body mass index (BMI) [Ratio] 22.7 kg/m2 22.7 k g/m2 [facility] ([facility]) Systolic blood pressure 125 mm[Hg] 125 mm[Hg] [facility] Body weight 2456 [oz_av] 2456 [oz_av] [facility] ([facility]) Diastolic blood pressure 82 mm[Hg] 82 mm[Hg] [facility] ([facility]) Body height 69 [in_i] 69 [in_i] [facility] ([facility]) Body mass index (BMI) [Ratio] 22.7 kg/m2 22.7 k g/m2 [facility] ([facility]) Systolic blood pressure 125 mm[Hg] 125 mm[Hg] A THENA ([facility]) Body weight 2456 [oz_av] 2456 [oz_av] [facility] ([facility]) Diastolic blood pressure 82 mm[Hg] 82 mm[Hg] [facility] ([facility]) Body height 69 [in_i] 69 [in_i] [facility] ([facility]) Body mass index (BMI) [Ratio] 22.7 kg/m2 22.7 k g/m2 [facility] ([facility]) Systolic blood pressure 125 mm[Hg] 125 mm[Hg] A THENA ([facility]) Body weight 2456 [oz_av] 2456 [oz_av] [facility] ([facility]) Diastolic blood pressure 82 mm[Hg] 82 mm[Hg] [facility] ([facility]) Body height 69 [in_i] 69 [in_i] [facility] ([facility]) Body mass index (BMI) [Ratio] 22.7 kg/m2 22.7 k g/m2 [facility] ([facility]) Systolic blood pressure 125 mm[Hg] 125 mm[Hg] A THENA ([facility]) Body weight 2456 [oz_av] 2456 [oz_av] [facility] ([facility]) Diastolic blood pressure 74 mm[Hg] 74 mm[Hg] [facility] ([facility]) Body height 69 [in_i] 69 [in_i] [facility] ([facility]) Body mass index (BMI) [Ratio] 22.7 kg/m2 22.7 k g/m2 [facility] ([facility]) Systolic blood pressure 108 mm[Hg] 108 mm[Hg] [facility] Body weight 2464 [oz_av] 2464 [oz_av] [facility] ([facility]) Diastolic blood pressure 74 mm[Hg] 74 mm[Hg] [facility] ([facility]) Body height 69 [in_i] 69 [in_i] [facility] ([facility]) Body mass index (BMI) [Ratio] 22.7 kg/m2 22.7 k g/m2 [facility] ([facility]) Systolic blood pressure 108 mm[Hg] 108 mm[Hg] A THENA ([facility]) Body weight 2464 [oz_av] 2464 [oz_av] [facility] ([facility]) Diastolic blood pressure 74 mm[Hg] 74 mm[Hg] [facility] ([facility]) Body height 69 [in_i] 69 [in_i] [facility] ([facility]) Body mass index (BMI) [Ratio] 22.7 kg/m2 22.7 k g/m2 [facility] ([facility]) Systolic blood pressure 108 mm[Hg] 108 mm[Hg] A THENA ([facility]) Body weight 2464 [oz_av] 2464 [oz_av] [facility] ([facility]) Diastolic blood pressure 74 mm[Hg] 74 mm[Hg] [facility] ([facility]) Body height 69 [in_i] 69 [in_i] [facility] ([facility]) Body mass index (BMI) [Ratio] 22.7 kg/m2 22.7 k g/m2 [facility] ([facility]) Systolic blood pressure 108 mm[Hg] 108 mm[Hg] A THENA ([facility]) Body weight 2464 [oz_av] 2464 [oz_av] [facility] ([facility]) Diastolic blood pressure 74 mm[Hg] 74 mm[Hg] [facility] ([facility]) Body height 69 [in_i] 69 [in_i] [facility] ([facility]) Body mass index (BMI) [Ratio] 22.7 kg/m2 22.7 k g/m2 [facility] ([facility]) Systolic blood pressure 108 mm[Hg] 108 mm[Hg] A THENA ([facility]) Diastolic blood pressure 74 mm[Hg] 74 mm[Hg] [facility] ([facility]) Body height 69 [in_i] 69 [in_i] BALKE ([facility]) Body mass index (BMI) [Ratio] 22.7 kg/m2 22.7 k g/m2 [facility] ([facility]) Body weight 2464 [oz_av] 2464 [oz_av] [facility] ([facility]) Systolic blood pressure 108 mm[Hg] 108 mm[Hg] A THENA ([facility]) Body weight 2464 [oz_av] 2464 [oz_av] [facility] ([facility]) Body weight 2464 [oz_av] 2464 [oz_av] [facility] ([facility]) Diastolic blood pressure 74 mm[Hg] 74 mm[Hg] [facility] ([facility]) Body height 69 [in_i] 69 [in_i] [facility] ([facility]) Body mass index (BMI) [Ratio] 22.7 kg/m2 22.7 k g/m2 [facility] ([facility]) Systolic blood pressure 108 mm[Hg] 108 mm[Hg] A THENA ([facility]) Diastolic blood pressure 74 mm[Hg] 74 mm[Hg] [facility] ([facility]) Body height 69 [in_i] 69 [in_i] [facility] ([facility]) Body mass index (BMI) [Ratio] 22.7 kg/m2 22.7 k g/m2 [facility] ([facility]) Systolic blood pressure 108 mm[Hg] 108 mm[Hg] A THENA ([facility]) Body weight 2464 [oz_av] 2464 [oz_av] [facility] ([facility]) Patient Treatment Plan of Care Planned Activity Planned Date Details Description Data Source (s) Buprenorphine 2 MG / Naloxone 0.5 MG Oral Strip 11/13/2020 12:00:00 AM EST [facility] ([facility]) tramadol hydrochloride 50 MG Oral Tablet [facility] ([facility]) topiramate 50 MG Oral Tablet [facility]LA[facility] ([facility]) topiramate 25 MG Oral Tablet [facility] ([facility]) 0.5 ML Sumatriptan 6 MG Cartridge [facility] ([facility]) Sumatriptan 50 MG Oral Tablet [facility] ([facility]) Ibuprofen 600 MG Oral Tablet [facility] ([facility]) Ibuprofen 200 MG Oral Tablet [facility] ([facility]) gabapentin 300 MG Oral Capsule [facility] ([facility]) gabapentin 100 MG Oral Capsule [facility] ([facility]) Fluoxetine 10 MG Oral Capsule STEPHEN ([facility]) Doxycycline Monohydrate 100 MG Oral Capsule [facility] ([facility]) Sodium Fluoride 0.011 MG/MG Toothpaste [Denta 5000 Plus] [facility] ([facility]) Clindamycin 300 MG Oral Capsule [facility] ([facility]) Citalopram 10 MG Oral Tablet [facility] ([facility]) Chantix Starting Month Box 0.5 mg (11)-1 mg (42) tablets in dose pack USE DIRECTED PER BOX INSTRUCTIONS AT [facility] ([facility]) Cephalexin 500 MG Oral Capsule BALKE ([facility]) buspirone hydrochloride 7.5 MG Oral Tablet [facility] ([facility]) buspirone hydrochloride 15 MG Oral Tablet [facility] ([facility]) Buprenorphine 8 MG / Naloxone 2 MG Sublingual Tablet [facility] ([facility]) Buprenorphine 4 MG / Naloxone 1 MG Oral Strip [facility] ([facility]) Buprenorphine 2 MG / Naloxone 0.5 MG Sublingual Tablet [facility] ([facility]) tramadol hydrochloride 50 MG Oral Tablet [facility] ([facility]) topiramate 50 MG Oral Tablet [facility] ([facility]) topiramate 25 MG Oral Tablet [facility] ([facility]) 0.5 ML Sumatriptan 6 MG Cartridge [facility] ([facility]) Sumatriptan 50 MG Oral Tablet [facility] ([facility]) Ibuprofen 600 MG Oral Tablet [facility] ([facility]) Ibuprofen 200 MG Oral Tablet [facility] ([facility]) gabapentin 300 MG Oral Capsule [facility] ([facility]) gabapentin 100 MG Oral Capsule [facility] ([facility]) Fluoxetine 10 MG Oral Capsule [facility] ([facility]) Doxycycline Monohydrate 100 MG Oral Capsule [facility] ([facility]) Sodium Fluoride 0.011 MG/MG Toothpaste [Denta 5000 Plus] [facility] ([facility]) Clindamycin 300 MG Oral Capsule [facility] ([facility]) Citalopram 10 MG Oral Tablet [facility] ([facility]) Chantix Starting Month Box 0.5 mg (11)-1 mg (42) tablets in dose pack USE DIRECTED PER BOX INSTRUCTIONS AT [facility] ([facility]) Cephalexin 500 MG Oral Capsule [facility] ([facility]) buspirone hydrochloride 7.5 MG Oral Tablet [facility] ([facility]) buspirone hydrochloride 15 MG Oral Tablet [facility] ([facility]) Buprenorphine 8 MG / Naloxone 2 MG Sublingual Tablet [facility] ([facility]) Buprenorphine 4 MG / Naloxone 1 MG Oral Strip [facility] ([facility]) Buprenorphine 2 MG / Naloxone 0.5 MG Sublingual Tablet [facility] ([facility]) tramadol hydrochloride 50 MG Oral Tablet [facility] ([facility]) topiramate 50 MG Oral Tablet [facility] ([facility]) topiramate 25 MG Oral Tablet [facility] ([facility]) 0.5 ML Sumatriptan 6 MG Cartridge [facility] ([facility]) Sumatriptan 50 MG Oral Tablet [facility] ([facility]) Ibuprofen 600 MG Oral Tablet [facility] ([facility]) Ibuprofen 200 MG Oral Tablet [facility] ([facility]) gabapentin 300 MG Oral Capsule [facility] ([facility]) gabapentin 100 MG Oral Capsule [facility] ([facility]) Fluoxetine 10 MG Oral Capsule [facility] ([facility]) Doxycycline Monohydrate 100 MG Oral Capsule [facility] ([facility]) Sodium Fluoride 0.011 MG/MG Toothpaste [Denta 5000 Plus] [facility] ([facility]) Clindamycin 300 MG Oral Capsule [facility] ([facility]) Citalopram 10 MG Oral Tablet [facility] ([facility]) Chantix Starting Month Box 0.5 mg (11)-1 mg (42) tablets in dose pack USE DIRECTED PER BOX INSTRUCTIONS AT [facility] ([facility]) Cephalexin 500 MG Oral Capsule [facility] ([facility]) buspirone hydrochloride 7.5 MG Oral Tablet [facility] ([facility]) buspirone hydrochloride 15 MG Oral Tablet [facility] ([facility]) Buprenorphine 8 MG / Naloxone 2 MG Sublingual Tablet [facility] ([facility]) Buprenorphine 4 MG / Naloxone 1 MG Oral Strip [facility] ([facility]) Buprenorphine 2 MG / Naloxone 0.5 MG Sublingual Tablet [facility] ([facility]) zolmitriptan 5 MG Oral Tablet [facility] ([facility]) tramadol hydrochloride 50 MG Oral Tablet [facility] ([facility]) topiramate 50 MG Oral Tablet [facility] ([facility]) topiramate 25 MG Oral Tablet [facility] ([facility]) 0.5 ML Sumatriptan 6 MG Cartridge [facility] ([facility]) Sumatriptan 50 MG Oral Tablet [facility] ([facility]) Ibuprofen 600 MG Oral Tablet [facility] ([facility]) Ibuprofen 200 MG Oral Tablet [facility] ([facility]) gabapentin 300 MG Oral Capsule [facility] ([facility]) gabapentin 100 MG Oral Capsule [facility] ([facility]) Fluoxetine 10 MG Oral Capsule [facility] ([facility]) Doxycycline Monohydrate 100 MG Oral Capsule [facility] ([facility]) 24 HR Divalproex Sodium 250 MG Extended Release Oral Tablet [facility] ([facility]) Sodium Fluoride 0.011 MG/MG Toothpaste [Denta 5000 Plus] [facility] ([facility]) Clindamycin 300 MG Oral Capsule [facility] ([facility]) Citalopram 10 MG Oral Tablet [facility] ([facility]) Chantix Starting Month Box 0.5 mg (11)-1 mg (42) tablets in dose pack USE DIRECTED PER BOX INSTRUCTIONS AT [facility] ([facility]) Cephalexin 500 MG Oral Capsule [facility] ([facility]) buspirone hydrochloride 7.5 MG Oral Tablet [facility] ([facility]) buspirone hydrochloride 15 MG Oral Tablet [facility] ([facility]) Buprenorphine 8 MG / Naloxone 2 MG Sublingual Tablet [facility] ([facility]) Buprenorphine 4 MG / Naloxone 1 MG Oral Strip [facility] ([facility]) Buprenorphine 2 MG / Naloxone 0.5 MG Sublingual Tablet [facility] ([facility]) zolmitriptan 5 MG Oral Tablet [facility] ([facility]) tramadol hydrochloride 50 MG Oral Tablet [facility] ([facility]) topiramate 25 MG Oral Tablet [facility] ([facility]) 0.5 ML Sumatriptan 6 MG Cartridge [facility] ([facility]) Sumatriptan 50 MG Oral Tablet [facility] ([facility]) Ibuprofen 600 MG Oral Tablet [facility] ([facility]) Ibuprofen 200 MG Oral Tablet [facility] ([facility]) gabapentin 300 MG Oral Capsule [facility] ([facility]) gabapentin 100 MG Oral Capsule [facility] ([facility]) Fluoxetine 10 MG Oral Capsule [facility] ([facility]) Doxycycline Monohydrate 100 MG Oral Capsule [facility] ([facility]) Sodium Fluoride 0.011 MG/MG Toothpaste [Denta 5000 Plus] [facility] ([facility]) Clindamycin 300 MG Oral Capsule [facility] ([facility]) Citalopram 10 MG Oral Tablet [facility] ([facility]) Cephalexin 500 MG Oral Capsule [facility] ([facility]) buspirone hydrochloride 7.5 MG Oral Tablet [facility] ([facility]) buspirone hydrochloride 15 MG Oral Tablet [facility] ([facility]) Buprenorphine 8 MG / Naloxone 2 MG Sublingual Tablet [facility] ([facility]) Buprenorphine 4 MG / Naloxone 1 MG Oral Strip [facility] ([facility]) Buprenorphine 2 MG / Naloxone 0.5 MG Sublingual Tablet [facility] ([facility]) zolmitriptan 5 MG Oral Tablet [facility] ([facility]) tramadol hydrochloride 50 MG Oral Tablet [facility] ([facility]) topiramate 25 MG Oral Tablet [facility] ([facility]) 0.5 ML Sumatriptan 6 MG Cartridge [facility] ([facility]) Sumatriptan 50 MG Oral Tablet [facility] ([facility]) Ibuprofen 600 MG Oral Tablet [facility] ([facility]) Ibuprofen 200 MG Oral Tablet [facility] ([facility]) gabapentin 300 MG Oral Capsule [facility] ([facility]) gabapentin 100 MG Oral Capsule [facility] ([facility]) Fluoxetine 10 MG Oral Capsule [facility] ([facility]) Doxycycline Monohydrate 100 MG Oral Capsule [facility] ([facility]) Sodium Fluoride 0.011 MG/MG Toothpaste [Denta 5000 Plus] [facility] ([facility]) Clindamycin 300 MG Oral Capsule [facility] ([facility]) Citalopram 10 MG Oral Tablet [facility] ([facility]) Cephalexin 500 MG Oral Capsule [facility] ([facility]) buspirone hydrochloride 7.5 MG Oral Tablet [facility] ([facility]) buspirone hydrochloride 15 MG Oral Tablet [facility] ([facility]) Buprenorphine 8 MG / Naloxone 2 MG Sublingual Tablet [facility] ([facility]) Buprenorphine 8 MG / Naloxone 2 MG Oral Strip [facility] ([facility]) Buprenorphine 4 MG / Naloxone 1 MG Oral Strip [facility] ([facility]) Buprenorphine 2 MG / Naloxone 0.5 MG Sublingual Tablet [facility] ([facility]) Buprenorphine 2 MG / Naloxone 0.5 MG Oral Strip [facility] ([facility]) tramadol hydrochloride 50 MG Oral Tablet [facility] ([facility]) topiramate 25 MG Oral Tablet [facility] ([facility]) Sumatriptan 50 MG Oral Tablet [facility] ([facility]) Ibuprofen 600 MG Oral Tablet [facility] ([facility]) Ibuprofen 200 MG Oral Tablet [facility] ([facility]) gabapentin 400 MG Oral Capsule [facility] ([facility]) gabapentin 100 MG Oral Capsule [facility] ([facility]) Doxycycline Monohydrate 100 MG Oral Capsule [facility] ([facility]) Sodium Fluoride 0.011 MG/MG Toothpaste [Denta 5000 Plus] [facility] ([facility]) Clindamycin 300 MG Oral Capsule [facility] ([facility]) Cephalexin 500 MG Oral Capsule [facility] ([facility]) buspirone hydrochloride 7.5 MG Oral Tablet [facility] ([facility]) buspirone hydrochloride 15 MG Oral Tablet [facility] ([facility]) Buprenorphine 8 MG / Naloxone 2 MG Oral Strip [facility] ([facility]) Buprenorphine 4 MG / Naloxone 1 MG Oral Strip [facility] ([facility]) Buprenorphine 2 MG / Naloxone 0.5 MG Sublingual Tablet [facility] ([facility]) tramadol hydrochloride 50 MG Oral Tablet [facility] ([facility]) topiramate 25 MG Oral Tablet [facility] ([facility]) Ibuprofen 600 MG Oral Tablet [facility] ([facility]) Ibuprofen 200 MG Oral Tablet [facility] ([facility]) gabapentin 400 MG Oral Capsule [facility] ([facility]) gabapentin 100 MG Oral Capsule [facility] ([facility]) Doxycycline Monohydrate 100 MG Oral Capsule [facility] ([facility]) Sodium Fluoride 0.011 MG/MG Toothpaste [Denta 5000 Plus] [facility] ([facility]) Clindamycin 300 MG Oral Capsule [facility] ([facility]) Cephalexin 500 MG Oral Capsule [facility] ([facility]) buspirone hydrochloride 7.5 MG Oral Tablet [facility] ([facility]) buspirone hydrochloride 15 MG Oral Tablet [facility] ([facility]) Buprenorphine 8 MG / Naloxone 2 MG Oral Strip [facility] ([facility]) Buprenorphine 4 MG / Naloxone 1 MG Oral Strip [facility] ([facility]) Buprenorphine 2 MG / Naloxone 0.5 MG Sublingual Tablet [facility] ([facility])
[2021-06-27] MEDS ORDERED: NEOSPORIN OINT 0.9 GM PKT TOP ONE (18:55)
[2021-06-27] MEDS ORDERED: BACI28.43 TOP (19:07)
[2021-06-27 19:18] VITALS: BP 115/79
--- OUTSIDE RECORDS SUMMARY | 2021-06-27 19:35 | CCD ---
Author Author [facility] Organization [facility] Address Unknown Phone Unavailable Care Team Providers Care Human Resources Professional Name Role Phone Jose Vasquez MD Unavailable [...] Unavailable Felisa Hanna MD Unavailable Unavailable Felisa Hnana MD Unavailable Unavailable Felisa Hanna MD Unavailable [...] O Nga SIMENTAL Unavailable Unavailable Jacques O Samah Unavailable Unavailable Jacques O Arslan Unavailable Unavailable Jacques O Sam Unavailable Unavailable Jacques O Nga SIMENTAL Unavailable Unavailable Jacques O Samah Unavailable Unavailable Jacques O Arslan Unavailable Unavailable Jacques O Samah Unavailable Unavailable Jacques O Arslan Unavailable Unavailable Jacques O Nga SIMENTAL Unavailable Unavailable Jacques O Nga SIMENTAL Unavailable Unavailable Jacques O Nga SIMENTAL Unavailable Unavailable Jacques O Arslanah Unavailable Unavailable Jacques O Arslan Unavailable Unavailable [...] Unavailable Unavailable Jacques O Arslan Unavailable Unavailable Jacques, O Sam MD Unavailable Unavailable Jose Vasquez MD Unavailable [...] Unavailable Jose Vasquez MD Unavailable Unavailable Jose Vasquze MD Unavailable Unavailable Jose Vasquez MD Unavailable [...] is protected by Article 27-F of the [facility] Public Health law. If you continue you may have access to information: Regarding HIV / AIDS; Provided by facilities licensed or operated by the [facility] Office of Mental Health; or Provided by the [facility] Office for People With Developmental Disabilities. If such information is present, then the following [facility] mandated warning applies: This information has been [...] law may result in a fine or residential sentence or both. A general authorization for the release of medical or other information is NOT sufficient authorization for further disc losure. Encounters Encounter Providers Location Date Indications Data Source(s ) Outpatient Attender: Nga Hanna MD Main office - [facility] 06/18/2021 10:30:00 AM EDT [facility] ([facility], ) Justice Vasquez MD: [address] [place] [phone], Ph. Attender: Justice Vasquez MD [facility] Medical 04/20/2021 12:00:00 AM EDT [facility] ([facility]) Justice Vasquez MD: [address] [place] [address], Ph. Attender: Justice Vasquez MD [facility] Medical 04/20/2021 12:00:00 AM EDT [facility] ([facility]) Justice Vasquez MD: [address] [place] [address], Ph. Attender: Justice Vasquez MD [facility] Medical 04/12/2021 12:00:00 AM EDT [facility] ([facility]) Justice Vasquez MD: [address] [place] [address], Ph. Attender: Justice Vasquez MD [facility] Medical 04/12/2021 12:00:00 AM EDT [facility] ([facility]) Justice Vasquez MD: [address] [place] [address], Ph. Attender: Justice Vasquez MD [facility] Medical 03/31/2021 12:00:00 AM EDT [facility] ([facility]) Justice Vasquez MD: [address] [place] [address], Ph. Attender: Justice Vasquez MD [facility] Medical 03/31/2021 12:00:00 AM EDT [facility] ([facility]) Justice Vasquez MD: [address] [place] [address], Ph. Attender: Justice Vasquez MD [facility] Medical 03/31/2021 12:00:00 AM EDT [facility] ([facility]) Outpatient Attender: Nga Hanna MD Main office - [facility] 03/10/2021 01:15:00 PM EDT [facility] ([facility]) Justice Vasquez MD: [address] [place] [address], Ph. Attender: Justice Vasquez MD [facility] Medical 02/24/2021 12:00:00 AM EDT [facility] ([facility]) Justice Vasquez MD: [address] [place] [address], Ph. Attender: Justice Vasqeuz MD [facility] Medical 02/24/2021 12:00:00 AM EDT [facility] ([facility]) Justice Vasquez MD: [address] [place] [address], Ph. Attender: Justice Vasquez MD [facility] Medical 02/24/2021 12:00:00 AM EDT [facility] ([facility]) Justice Vasquez MD: [address] [place] [phone], Ph. Attender: Justice Vasquez MD [facility] Medical 02/24/2021 12:00:00 AM EDT [facility] ([facility]) Outpatient Attender: Nga Hanna MD Main office - [facility] 11/30/2020 08:30:00 AM EDT [facility] ([facility]) Justice Vasquez MD: [address] [place] [address], Ph. Attender: Justice Vasquez MD [facility] Medical 11/13/2020 12:00:00 AM EST [facility] ([facility]) Justice Vasquez MD: [address] [place] [address], Ph. Attender: Justice Vasquez MD [facility] Medical 11/13/2020 12:00:00 AM EST [facility] ([facility]) Justice Vasquez MD: [address] [place] [address], Ph. Attender: Justice Vasquez MD [facility] Medical 11/13/2020 12:00:00 AM EST [facility] ([facility]) Justice Vasquez MD: [address] [place] [address], Ph. Attender: Justice Vasquez MD [facility] Medical 11/13/2020 12:00:00 AM EST [facility] ([facility]) Justice Vasquez MD: [address] [place] [address], Ph. Attender: Justice Vasquez MD [facility] Medical 11/13/2020 12:00:00 AM EST [facility] ([facility]) Justice Vasquez MD: [address] [place] [address], Ph. Attender: Justice Vasquez MD [facility] Medical 10/16/2020 12:00:00 AM EST [facility] ([facility]) Justice Vasquez MD: [address] [place] [address], Ph. Attender: Justice Vasquez MD [facility] Medical 10/16/2020 12:00:00 AM EST [facility] ([facility]) Justice Vasquez MD: [address] [place] [address], Ph. Attender: Justice Vasquez MD [facility] Medical 10/16/2020 12:00:00 AM EST [facility] ([facility]) Justice Vasquez MD: [address] [place] [address], Ph. Attender: Justice Vasquez MD [facility] Medical 10/16/2020 12:00:00 AM EST [facility] ([facility]) Justice Vasquez MD: [address] [place] [address], Ph. Attender: Justice Vasquez MD [facility] Medical 10/16/2020 12:00:00 AM EST [facility] ([facility]) Justice Vasquez MD: [address] [place] [address], Ph. Attender: Justice Vasquez MD [facility] Medical 10/16/2020 12:00:00 AM EST [facility] ([facility]) Justice Vasquez MD: [address] [place] [address], Ph. Attender: Justice Vasquez MD [facility] Medical 08/18/2020 12:00:00 AM EST [facility] ([facility]) Justice Vasquez MD: [address] [place] [address], Ph. Attender: Justice Vasquez MD [facility] Medical 08/18/2020 12:00:00 AM EST [facility] ([facility]) Justice Vasquez MD: [address] [place] [address], Ph. Attender: Justice Vasquez MD [facility] Medical 08/18/2020 12:00:00 AM EST [facility] ([facility]) Justice Vasquez MD: [address] [place] [address], Ph. Attender: Justice Vasquez MD [facility] Medical 08/18/2020 12:00:00 AM EST [facility] ([facility]) Justice Vasquez MD: [address] [place] [address], Ph. Attender: Justice Vasquez MD [facility] Medical 08/18/2020 12:00:00 AM EST [facility] ([facility]) Justice Vasquez MD: [address] [place] [address], Ph. Attender: Justice Vasquez MD [facility] Medical 08/18/2020 12:00:00 AM EST [facility] ([facility]) Justice Vasquez MD: [address] [place] [address], Ph. Attender: Justice Vasquez MD [facility] Medical 08/18/2020 12:00:00 AM EST [facility] ([facility]) Justice Vasquez MD: [address] [place] [address], Ph. Attender: Justice Vasquez MD [facility] Medical 08/11/2020 12:00:00 AM EST [facility] ([facility]) Justice Vasquez MD: [address] [place] [address], Ph. Attender: Justice Vasquez MD [facility] Medical 08/11/2020 12:00:00 AM EST [facility] ([facility]) Justice Vasquez MD: [address] [place] [address], Ph. Attender: Justice Vasquez MD [facility] Medical 08/11/2020 12:00:00 AM EST [facility] ([facility]) Justice Vasquez MD: [address] [place] [address], Ph. Attender: Justice Vasquez MD [facility] Medical 08/11/2020 12:00:00 AM EST [facility] ([facility]) Justice Vasquez MD: [address] [place] [address], Ph. Attender: Justice Vasquez MD [facility] Medical 08/11/2020 12:00:00 AM EST [facility] ([facility]) Justice Vasquez MD: [address] [place] [address], Ph. Attender: Justice Vasquez MD [facility] Medical 08/11/2020 12:00:00 AM EST [facility] ([facility]) Justice Vasquez MD: [address] [place] [address], Ph. Attender: Justice Vasquez MD [facility] Medical 08/11/2020 12:00:00 AM EST [facility] ([facility]) Justice Vasquez MD: [address] [place] [address], Ph. Attender: Justice Vasquez MD [facility] Medical 08/11/2020 12:00:00 AM EST [facility] ([facility]) Outpatient Attender: Justice Vasquez MD 07/08/2020 10:14:00 AM EST [facility] Outpatient Attender: Justice Vasquez MD 06/08/2020 10:11:00 AM EDT [facility] Outpatient [facility] 06/05/2020 03:25:01 PM EDT [facility] Outpatient [facility]ATNDC 06/05/2020 03:22:00 PM EDT [facility] Outpatient [facility] 06/05/2020 03:21:01 PM EDT [facility] Outpatient [facility] 06/05/2020 12:03:01 PM EDT [facility] Outpatient [facility] 06/05/2020 12:01:01 PM EDT [facility] Immunizations Vaccine Date Status Description Data Source(s) COVID-19 VACCINE Moderna 12/15/2020 12:00:00 AM EDT completed [facility] Vaccine Series Complete: YESThis Data wa s Submitted to [facility] Via [facility]. COVID-19 VACCINE Moderna 11/17/2020 12:00:00 AM EDT completed [facility] Vaccine Series Complete: NOThis Data was Submitted to [facility] Via [facility]. Medications Medication Brand Name Start Date Product [...] MOUTH THREE TIMES A DAY SOLD: 01/31/2021 [facility] 8-2 mg 01/02/2021 12:00:00 AM EDT [...] ER 11/30/2020 12:00:00 AM EDT active [facility] ([facility]) Ondansetron 4 MG Disintegrating Oral Tablet Ondansetron 11/30/2020 12:00:00 AM EDT active [facility] ([facility]) topiramate 100 MG Oral Tablet Topiramate 11/30/2020 12:00:00 AM EDT ORAL completed [facility] ([facility]) 400 mg 11/23/2020 12:00:00 AM [...] MG / naloxone 0.5 MG Sublingual Film [facility] er) 100 mg 06/21/2020 12:00:00 [...] ibupro fen 600 MG Oral Tablet [facility] ([facility]) Citalopram 10 MG Oral Tablet citalopram 10 mg tablet TAKE ONE TABLET BY MOUTH EVERY MORNING citalopram 10 mg tablet TAKE ONE TABLET BY MOUTH EVERY MORNI NG completed citalopram 10 MG Oral Tablet [facility] ([facility]) Sumatriptan 50 MG Oral Tablet sumatripta n 50 mg tablet TAKE 1 TABLET BY MOUTH NEEDED sumatriptan 50 mg tablet TAKE 1 TABLET BY MOUTH NEEDED completed sumatriptan 50 MG Oral Tablet AT [facility] ([facility]) Buprenorphine 8 MG / Naloxone 2 MG Subli ngual Tablet buprenorphine 8 mg-naloxone 2 mg sublingual tablet DISSOLVE ONE TABLET UNDER THE TONGUE TWICE DAILY MAX DAILY DOSE TWO TABLETS buprenorphine 8 mg-naloxone 2 mg subling ual tablet DISSOLVE ONE TABLET UNDER THE TONGUE TWICE DAILY MAX DAILY DOSE TWO TABLETS completed buprenorphine 8 MG / n aloxone 2 MG Sublingual Tablet [facility] ([facility]) Chantix Starting Month Box 0.5 mg (11)-1 mg (42) tablets in dose pack USE DIRECTED PER BOX INSTRUCTIONS [id number] [facility] Chantix Starting Month Box 0.5 mg (11)-1 mg (42) tablets in dose pack [facility] ([facility]) tramadol hydrochloride 50 MG Oral Tablet tramadol 50 mg tablet TAKE ONE TABLET BY MOUTH EVERY 3 HOURS NEEDED FOR 14 DAYS MAXIMUM DAILY DOSE 3 tramadol 50 mg tablet TAKE ONE TABLET BY MOUTH EVERY 3 HOURS NEEDED FOR 14 DAYS MAXIMUM DAILY DOSE 3 completed tramadol hydrochloride 50 MG Oral Tablet [facility] er) Buprenorphine 8 MG / [...] / n aloxone 2 MG Sublingual Tablet [facility]) Citalopram 10 MG Oral Tablet citalopram 10 mg tablet TAKE ONE TABLET BY MOUTH EVERY MORNING citalopram 10 mg tablet TAKE ONE TABLET BY MOUTH EVERY MORNI NG completed citalopram 10 MG Oral Tablet [facility]) Buprenorphine 8 MG / Naloxone [...] / n aloxone 2 MG Sublingual Tablet [facility]) gabapentin 300 MG Oral Capsule gabapenti n 300 mg capsule TAKE ONE CAPSULE BY MOUTH TWICE DAILY gabapentin 300 mg capsule TAKE ONE CAPSU LE BY MOUTH TWICE DAILY completed gabapentin 300 M G Oral Capsule [facility]) Ibuprofen 600 MG Oral Tablet ibuprofen 6 00 mg tablet TAKE ONE TABLET BY MOUTH EVERY 6 HOURS NEEDED ibuprofen 600 mg tablet TAKE ONE TABLET BY MOUTH EVERY 6 HOURS NEEDED completed ibupro fen 600 MG Oral Tablet [facility]) gabapentin 400 MG Oral Capsule gabapenti n 400 mg capsule TAKE ONE CAPSULE BY MOUTH TWICE DAILY gabapentin 400 mg capsule TAKE ONE CAPSU LE BY MOUTH TWICE DAILY completed gabapentin 400 M G Oral Capsule [facility]) buspirone hydrochloride 15 MG Oral Table t buspirone 15 mg tablet TAKE ONE TABLET BY MOUTH TWICE DAILY buspirone 15 mg tablet TAKE ONE TABLET B Y MOUTH TWICE DAILY completed buspirone hydroc hloride 15 MG Oral Tablet [facility]) topiramate 25 MG Oral Tablet topiramate 25 mg tablet TAKE ONE HALF TABLET BY MOUTH TWICE A DAY topiramate 25 mg tablet TAKE ONE HALF TA BLET BY MOUTH TWICE A DAY completed topiramate 25 MG Oral Tablet [facility]) buspirone hydrochloride 15 MG Oral Table t buspirone 15 mg tablet TAKE ONE TABLET BY MOUTH TWICE DAILY buspirone 15 mg tablet TAKE ONE TABLET B Y MOUTH TWICE DAILY completed buspirone hydroc hloride 15 MG Oral Tablet [facility]) Buprenorphine 2 MG / Naloxone [...] MG / naloxone 0.5 MG Sublingual Tablet [facility] er) Ibuprofen 600 MG Oral Tablet ibuprofen 6 00 mg tablet TAKE ONE TABLET BY MOUTH EVERY 6 HOURS NEEDED ibuprofen 600 mg tablet TAKE ONE TABLET BY MOUTH EVERY 6 HOURS NEEDED completed ibupro fen 600 MG Oral Tablet [facility]) buspirone hydrochloride 15 MG Oral Table t buspirone 15 mg tablet TAKE ONE TABLET BY MOUTH TWICE DAILY buspirone 15 mg tablet TAKE ONE TABLET B Y MOUTH TWICE DAILY completed buspirone hydroc hloride 15 MG Oral Tablet [facility]) buspirone hydrochloride 15 MG Oral Table t buspirone 15 mg tablet TAKE ONE TABLET BY MOUTH TWICE DAILY buspirone 15 mg tablet TAKE ONE TABLET B Y MOUTH TWICE DAILY completed buspirone hydroc hloride 15 MG Oral Tablet [facility] ([facility]) Doxycycline Monohydrate 100 MG Oral Caps ule doxycycline monohydrate 100 mg capsule TAKE ONE CAPSULE BY MOUTH EVERY 12 HOURS doxycycline monohydrate 100 mg capsule TAKE ONE CAPSULE BY MOUTH EVERY 12 HOURS completed doxycycline monohydrate 100 MG Oral Capsule [facility] ([facility]) Doxycycline Monohydrate 100 MG Oral Caps ule doxycycline monohydrate 100 mg capsule TAKE ONE CAPSULE BY MOUTH EVERY 12 HOURS doxycycline monohydrate 100 mg capsule TAKE ONE CAPSULE BY MOUTH EVERY 12 HOURS completed doxycycline monohydrate 100 MG Oral Capsule [facility] ([facility]) 0.5 ML Sumatriptan 6 MG Cartridge sumatr iptan 6 mg/0.5 mL subcutaneous pen injector USE ONE INJECTOR ONCE DAILY NEEDED FOR MIGRAINES sumatriptan 6 mg/0.5 mL subcutaneous pen injector USE ONE INJECTOR ONCE DAILY NEEDED FOR MIGRAINES completed 0.5 ML sumat riptan 12 MG/ML Cartridge [facility] ([facility]) Ibuprofen 600 MG Oral Tablet ibuprofen 6 00 mg tablet TAKE ONE TABLET BY MOUTH EVERY 6 HOURS NEEDED ibuprofen 600 mg tablet TAKE ONE TABLET BY MOUTH EVERY 6 HOURS NEEDED completed ibupro fen 600 MG Oral Tablet [facility] ([facility]) topiramate 50 MG Oral Tablet topiramate 50 mg tablet TAKE ONE TABLET BY MOUTH ONCE DAILY topiramate 50 mg tablet TAKE ONE TABLET BY MOUTH ONCE DAILY completed topiramate 50 MG Oral Tab let [facility] ([facility]) gabapentin 300 MG Oral Capsule gabapenti n 300 mg capsule TAKE ONE CAPSULE BY MOUTH TWICE DAILY gabapentin 300 mg capsule TAKE ONE CAPSU LE BY MOUTH TWICE DAILY completed gabapentin 300 M G Oral Capsule [facility] ([facility]) gabapentin 300 MG Oral Capsule gabapenti n 300 mg capsule TAKE ONE CAPSULE BY MOUTH TWICE DAILY gabapentin 300 mg capsule TAKE ONE CAPSU LE BY MOUTH TWICE DAILY completed gabapentin 300 M G Oral Capsule [facility] ([facility]) Doxycycline Monohydrate 100 MG Oral Caps ule doxycycline monohydrate 100 mg capsule TAKE ONE CAPSULE BY MOUTH EVERY 12 HOURS doxycycline monohydrate 100 mg capsule TAKE ONE CAPSULE BY MOUTH EVERY 12 HOURS completed doxycycline monohydrate 100 MG Oral Capsule [facility]) Chantix Starting Month Box 0.5 mg (11)-1 mg (42) tablets in dose pack USE DIRECTED PER BOX INSTRUCTIONS [id number] [facility] Chantix Starting Month Box 0.5 mg (11)-1 mg (42) tablets in dose pack [facility] ([facility]) Ibuprofen 600 MG Oral Tablet ibuprofen 6 00 mg tablet TAKE ONE TABLET BY MOUTH EVERY 6 HOURS NEEDED ibuprofen 600 mg tablet TAKE ONE TABLET BY MOUTH EVERY 6 HOURS NEEDED completed ibupro fen 600 MG Oral Tablet [facility] ([facility]) topiramate 25 MG Oral Tablet topiramate 25 mg tablet TAKE ONE HALF TABLET BY MOUTH TWICE A DAY topiramate 25 mg tablet TAKE ONE HALF TA BLET BY MOUTH TWICE A DAY completed topiramate 25 MG Oral Tablet [facility] ([facility]) topiramate 25 MG Oral Tablet topiramate 25 mg tablet TAKE ONE HALF TABLET BY MOUTH TWICE A DAY topiramate 25 mg tablet TAKE ONE HALF TA BLET BY MOUTH TWICE A DAY completed topiramate 25 MG Oral Tablet [facility] ([facility]) Buprenorphine 4 MG / Naloxone 1 MG Oral Strip buprenorphine 4 mg-naloxone [address] ONE FILM UNDER THE TONGUE EVERY DAY MAXIMUM DAILY DOSE 1 buprenorphine 4 mg-naloxone 1 mg subling ual film PLACE ONE FILM UNDER THE TONGUE EVERY DAY MAXIMUM DAILY DOSE 1 completed buprenorphine 4 MG / naloxone 1 MG Sublingual Film [facility]) gabapentin 100 MG Oral Capsule gabapenti n 100 mg capsule TAKE ONE CAPSULE BY MOUTH THREE TIMES A DAY gabapentin 100 mg capsule TAKE ONE CAPSU LE BY MOUTH THREE TIMES A DAY completed antonia pentin 100 MG Oral Capsule [facility] ([facility]) Buprenorphine 2 MG / Naloxone 0.5 MG Sub lingual Tablet buprenorphine 2 mg- naloxone 0.5 mg sublingual tablet DISSOLVE ONE TABLET UNDER THE TONGUE EVERY EVENING MAX DAILY DOSE ONE TABLET buprenorphine 2 mg-naloxone 0.5 mg subli ngual tablet DISSOLVE ONE TABLET UNDER THE TONGUE EVERY EVENING MAX DAILY DOSE ONE TABLET completed bupreno rphine 2 MG / naloxone 0.5 MG Sublingual Tablet [facility]) Sodium Fluoride 0.011 MG/MG Toothpaste [ Denta 5000 Plus] Denta 5000 Plus 1.1 % cream Denta 5000 Plus 1.1 % cream completed sodium fluoride 0.011 MG/MG Toothpaste [Denta 5000 Plus] [facility]) Buprenorphine 2 MG / Naloxone [...] MG / naloxone 0.5 MG Sublingual Tablet [facility] ([facility]) Cephalexin 500 MG Oral Capsule cephalexi n 500 mg capsule TAKE ONE CAPSULE BY MOUTH EVERY 8 HOURS cephalexin 500 mg capsule TAKE ONE CAPSU LE BY MOUTH EVERY 8 HOURS completed cephalexin 500 M G Oral Capsule [facility] ([facility]) Sodium Fluoride 0.011 MG/MG Toothpaste [ Denta 5000 Plus] Denta 5000 Plus 1.1 % cream Denta 5000 Plus 1.1 % cream completed sodium fluoride 0.011 MG/MG Toothpaste [Denta 5000 Plus] [facility] ([facility]) 0.5 ML Sumatriptan 6 MG Cartridge sumatr iptan 6 mg/0.5 mL subcutaneous pen injector USE ONE INJECTOR ONCE DAILY NEEDED FOR MIGRAINES sumatriptan 6 mg/0.5 mL subcutaneous pen injector USE ONE INJECTOR ONCE DAILY NEEDED FOR MIGRAINES completed 0.5 ML sumat riptan 12 MG/ML Cartridge [facility] ([facility]) tramadol hydrochloride 50 MG Oral Tablet tramadol 50 mg tablet TAKE ONE TABLET BY MOUTH EVERY 3 HOURS NEEDED FOR 14 DAYS MAXIMUM DAILY DOSE 3 tramadol 50 mg tablet TAKE ONE TABLET BY MOUTH EVERY 3 HOURS NEEDED FOR 14 DAYS MAXIMUM DAILY DOSE 3 completed tramadol hydrochloride 50 MG Oral Tablet [facility] ([facility]) Fluoxetine 10 MG Oral Capsule fluoxetine 10 mg capsule TAKE ONE CAPSULE BY MOUTH EVERY MORNING fluoxetine 10 mg capsule TAKE ONE CAPSULE BY MOUTH ANNEL RY MORNING completed fluoxetine 10 MG Oral Capsule [facility] ([facility]) Clindamycin 300 MG Oral Capsule clindamy michele HCl 300 mg capsule TAKE ONE CAPSULE BY MOUTH EVERY 6 HOURS UNTIL FINISHED clindamycin HCl 300 mg capsule TAKE ONE CAPSULE BY MOUTH EVERY 6 HOURS UNTIL FINISHED completed clindamycin 300 MG Oral Capsule [facility] ([facility]) Chantix Starting Month Box 0.5 mg (11)-1 mg (42) tablets in dose pack USE DIRECTED PER BOX INSTRUCTIONS [id number] [facility] Chantix Starting Month Box 0.5 mg (11)-1 mg (42) tablets in dose pack [facility] ([facility]) buspirone hydrochloride 15 MG Oral Table t buspirone 15 mg tablet TAKE ONE TABLET BY MOUTH TWICE DAILY buspirone 15 mg tablet TAKE ONE TABLET B Y MOUTH TWICE DAILY completed buspirone hydroc hloride 15 MG Oral Tablet [facility] ([facility]) Ibuprofen 600 MG Oral Tablet ibuprofen 6 00 mg tablet TAKE ONE TABLET BY MOUTH EVERY 6 HOURS NEEDED ibuprofen 600 mg tablet TAKE ONE TABLET BY MOUTH EVERY 6 HOURS NEEDED completed ibupro fen 600 MG Oral Tablet [facility] ([facility]) 24 HR Divalproex Sodium 250 MG Extended [...] sodium 250 MG Extended Release Oral Tablet [facility] ([facility]) buspirone hydrochloride 7.5 MG Oral Tabl et buspirone 7.5 mg tablet TAKE ONE TABLET BY MOUTH TWICE DAILY buspirone 7.5 mg tablet TAKE ONE TABLET BY MOUTH TWICE DAILY completed bu spirone hydrochloride 7.5 MG Oral Tablet [facility] ([facility]) Buprenorphine 2 MG / Naloxone 0.5 MG Ora l Strip buprenorphine 2 mg-naloxone 0.5 mg sublingual film DISSOLVE ONE FILM UNDER THE TONGUE ONCE DAILY MAX DAILY DOSE ONE FILM buprenorphine 2 mg-naloxone 0.5 mg subli ngual film DISSOLVE ONE FILM UNDER THE TONGUE ONCE DAILY MAX DAILY DOSE ONE FILM completed buprenorphine 2 MG / naloxone 0.5 MG Sublingual Film [facility] [facility] Ibuprofen 200 MG Oral Tablet ibuprofen 2 00 mg tablet TAKE 2 TABLETS BY MOUTH EVERY 4 6 HOURS NEEDED ibuprofen 200 mg tablet TAKE 2 TABLETS B Y MOUTH EVERY 4 6 HOURS NEEDED completed ib uprofen 200 MG Oral Tablet [facility] ([facility]) tramadol hydrochloride 50 MG Oral Tablet tramadol 50 mg tablet TAKE ONE TABLET BY MOUTH EVERY 3 HOURS NEEDED FOR 14 DAYS MAXIMUM DAILY DOSE 3 tramadol 50 mg tablet TAKE ONE TABLET BY MOUTH EVERY 3 HOURS NEEDED FOR 14 DAYS MAXIMUM DAILY DOSE 3 completed tramadol hydrochloride 50 MG Oral Tablet [facility] ([facility]) gabapentin 100 MG Oral Capsule gabapenti n 100 mg capsule TAKE ONE CAPSULE BY MOUTH THREE TIMES A DAY gabapentin 100 mg capsule TAKE ONE CAPSU LE BY MOUTH THREE TIMES A DAY completed antonia pentin 100 MG Oral Capsule [facility] ([facility]) Chantix Starting Month Box 0.5 mg (11)-1 mg (42) tablets in dose pack USE DIRECTED PER BOX INSTRUCTIONS [id number] complet ed Chantix Starting Month Box 0.5 mg (11)-1 mg (42) tablets in dose pack [facility] ([facility]) Sodium Fluoride 0.011 MG/MG Toothpaste [ Denta 5000 Plus] Denta 5000 Plus 1.1 % cream Denta 5000 Plus 1.1 % cream completed sodium fluoride 0.011 MG/MG Toothpaste [Denta 5000 Plus] [facility] ([facility]) Fluoxetine 10 MG Oral Capsule fluoxetine 10 mg capsule TAKE ONE CAPSULE BY MOUTH EVERY MORNING fluoxetine 10 mg capsule TAKE ONE CAPSULE BY MOUTH ANNEL RY MORNING completed fluoxetine 10 MG Oral Capsule [facility] ([facility]) Buprenorphine 2 MG / Naloxone 0.5 MG Sub lingual Tablet buprenorphine 2 mg- naloxone 0.5 mg sublingual tablet DISSOLVE ONE TABLET UNDER THE TONGUE EVERY EVENING MAX DAILY DOSE ONE TABLET buprenorphine 2 mg-naloxone 0.5 mg subli ngual tablet DISSOLVE ONE TABLET UNDER THE TONGUE EVERY EVENING MAX DAILY DOSE ONE TABLET completed bupreno rphine 2 MG / naloxone 0.5 MG Sublingual Tablet [facility] ([facility]) buspirone hydrochloride 15 MG Oral Table t buspirone 15 mg tablet TAKE ONE TABLET BY MOUTH TWICE DAILY buspirone 15 mg tablet TAKE ONE TABLET B Y MOUTH TWICE DAILY completed buspirone hydroc hloride 15 MG Oral Tablet [facility] ([facility]) Buprenorphine 8 MG / Naloxone 2 MG [...] MG / naloxone 2 MG Sublingual Film [facility] ([facility]) Doxycycline Monohydrate 100 MG Oral Caps ule doxycycline monohydrate 100 mg capsule TAKE ONE CAPSULE BY MOUTH EVERY 12 HOURS doxycycline monohydrate 100 mg capsule TAKE ONE CAPSULE BY MOUTH EVERY 12 HOURS completed doxycycline monohydrate 100 MG Oral Capsule [facility] ([facility]) Ibuprofen 200 MG Oral Tablet ibuprofen 2 00 mg tablet TAKE 2 TABLETS BY MOUTH EVERY 4 6 HOURS NEEDED ibuprofen 200 mg tablet TAKE 2 TABLETS B Y MOUTH EVERY 4 6 HOURS NEEDED completed ib uprofen 200 MG Oral Tablet [facility] ([facility]) Ibuprofen 200 MG Oral Tablet ibuprofen 2 00 mg tablet TAKE 2 TABLETS BY MOUTH EVERY 4 6 HOURS NEEDED ibuprofen 200 mg tablet TAKE 2 TABLETS B Y MOUTH EVERY 4 6 HOURS NEEDED completed ib uprofen 200 MG Oral Tablet [facility] ([facility]) Buprenorphine 8 MG / Naloxone 2 MG Subli ngual Tablet buprenorphine 8 mg-naloxone 2 mg sublingual tablet DISSOLVE ONE TABLET UNDER THE TONGUE TWICE DAILY MAX DAILY DOSE TWO TABLETS buprenorphine 8 mg-naloxone 2 mg subling ual tablet DISSOLVE ONE TABLET UNDER THE TONGUE TWICE DAILY MAX DAILY DOSE TWO TABLETS completed buprenorphine 8 MG / n aloxone 2 MG Sublingual Tablet [facility] ([facility]) topiramate 25 MG Oral Tablet topiramate 25 mg tablet TAKE ONE HALF TABLET BY MOUTH TWICE A DAY topiramate 25 mg tablet TAKE ONE HALF TA BLET BY MOUTH TWICE A DAY completed topiramate 25 MG Oral Tablet [facility] ([facility]) Fluoxetine 10 MG Oral Capsule fluoxetine 10 mg capsule TAKE ONE CAPSULE BY MOUTH EVERY MORNING fluoxetine 10 mg capsule TAKE ONE CAPSULE BY MOUTH ANNEL RY MORNING completed fluoxetine 10 MG Oral Capsule [facility] ([facility]) tramadol hydrochloride 50 MG Oral Tablet tramadol 50 mg tablet TAKE ONE TABLET BY MOUTH EVERY 3 HOURS NEEDED FOR 14 DAYS MAXIMUM DAILY DOSE 3 tramadol 50 mg tablet TAKE ONE TABLET BY MOUTH EVERY 3 HOURS NEEDED FOR 14 DAYS MAXIMUM DAILY DOSE 3 completed tramadol hydrochloride 50 MG Oral Tablet [facility] ([facility]) Cephalexin 500 MG Oral Capsule cephalexi n 500 mg capsule TAKE ONE CAPSULE BY MOUTH EVERY 8 HOURS cephalexin 500 mg capsule TAKE ONE CAPSU LE BY MOUTH EVERY 8 HOURS completed cephalexin 500 M G Oral Capsule [facility] ([facility]) Ibuprofen 200 MG Oral Tablet ibuprofen 2 00 mg tablet TAKE 2 TABLETS BY MOUTH EVERY 4 6 HOURS NEEDED ibuprofen 200 mg tablet TAKE 2 TABLETS B Y MOUTH EVERY 4 6 HOURS NEEDED completed ib uprofen 200 MG Oral Tablet [facility] ([facility]) Clindamycin 300 MG Oral Capsule clindamy michele HCl 300 mg capsule TAKE ONE CAPSULE BY MOUTH EVERY 6 HOURS UNTIL FINISHED clindamycin HCl 300 mg capsule TAKE ONE CAPSULE BY MOUTH EVERY 6 HOURS UNTIL FINISHED completed clindamycin 300 MG Oral Capsule [facility] ([facility]) Cephalexin 500 MG Oral Capsule cephalexi n 500 mg capsule TAKE ONE CAPSULE BY MOUTH EVERY 8 HOURS cephalexin 500 mg capsule TAKE ONE CAPSU LE BY MOUTH EVERY 8 HOURS completed cephalexin 500 M G Oral Capsule [facility] ([facility]) Doxycycline Monohydrate 100 MG Oral Caps ule doxycycline monohydrate 100 mg capsule TAKE ONE CAPSULE BY MOUTH EVERY 12 HOURS doxycycline monohydrate 100 mg capsule TAKE ONE CAPSULE BY MOUTH EVERY 12 HOURS completed doxycycline monohydrate 100 MG Oral Capsule [facility] ([facility]) Clindamycin 300 MG Oral Capsule clindamy michele HCl 300 mg capsule TAKE ONE CAPSULE BY MOUTH EVERY 6 HOURS UNTIL FINISHED clindamycin HCl 300 mg capsule TAKE ONE CAPSULE BY MOUTH EVERY 6 HOURS UNTIL FINISHED completed clindamycin 300 MG Oral Capsule [facility] ([facility]) Sodium Fluoride 0.011 MG/MG Toothpaste [ Denta 5000 Plus] Denta 5000 Plus 1.1 % cream Denta 5000 Plus 1.1 % cream completed sodium fluoride 0.011 MG/MG Toothpaste [Denta 5000 Plus] [facility] ([facility]) buspirone hydrochloride 15 MG Oral Table t buspirone 15 mg tablet TAKE ONE TABLET BY MOUTH TWICE DAILY buspirone 15 mg tablet TAKE ONE TABLET B Y MOUTH TWICE DAILY completed buspirone hydroc hloride 15 MG Oral Tablet [facility] ([facility]) buspirone hydrochloride 7.5 MG Oral Tabl et buspirone 7.5 mg tablet TAKE ONE TABLET BY MOUTH TWICE DAILY buspirone 7.5 mg tablet TAKE ONE TABLET BY MOUTH TWICE DAILY completed bu spirone hydrochloride 7.5 MG Oral Tablet [facility] ([facility]) gabapentin 100 MG Oral Capsule gabapenti n 100 mg capsule TAKE ONE CAPSULE BY MOUTH THREE TIMES A DAY gabapentin 100 mg capsule TAKE ONE CAPSU LE BY MOUTH THREE TIMES A DAY completed antonia pentin 100 MG Oral Capsule [facility]) tramadol hydrochloride 50 MG Oral Tablet tramadol 50 mg tablet TAKE ONE TABLET BY MOUTH EVERY 3 HOURS NEEDED FOR 14 DAYS MAXIMUM DAILY DOSE 3 tramadol 50 mg tablet TAKE ONE TABLET BY MOUTH EVERY 3 HOURS NEEDED FOR 14 DAYS MAXIMUM DAILY DOSE 3 completed tramadol hydrochloride 50 MG Oral Tablet [facility] ([facility]) gabapentin 300 MG Oral Capsule gabapenti n 300 mg capsule TAKE ONE CAPSULE BY MOUTH TWICE DAILY gabapentin 300 mg capsule TAKE ONE CAPSU LE BY MOUTH TWICE DAILY completed gabapentin 300 M G Oral Capsule [facility] ([facility]) Sumatriptan 50 MG Oral Tablet sumatripta n 50 mg tablet TAKE 1 TABLET BY MOUTH NEEDED sumatriptan 50 mg tablet TAKE 1 TABLET BY MOUTH NEEDED completed sumatriptan 50 MG Oral Tablet AT [facility] ([facility]) topiramate 25 MG Oral Tablet topiramate 25 mg tablet TAKE ONE HALF TABLET BY MOUTH TWICE A DAY topiramate 25 mg tablet TAKE ONE HALF TA BLET BY MOUTH TWICE A DAY completed topiramate 25 MG Oral Tablet [facility] ([facility]) Citalopram 10 MG Oral Tablet citalopram 10 mg tablet TAKE ONE TABLET BY MOUTH EVERY MORNING citalopram 10 mg tablet TAKE ONE TABLET BY MOUTH EVERY MORNI NG completed citalopram 10 MG Oral Tablet [facility] ([facility]) Sodium Fluoride 0.011 MG/MG Toothpaste [ Denta 5000 Plus] Denta 5000 Plus 1.1 % cream Denta 5000 Plus 1.1 % cream completed sodium fluoride 0.011 MG/MG Toothpaste [Denta 5000 Plus] [facility] ([facility]) Ibuprofen 600 MG Oral Tablet ibuprofen 6 00 mg tablet TAKE ONE TABLET BY MOUTH EVERY 6 HOURS NEEDED ibuprofen 600 mg tablet TAKE ONE TABLET BY MOUTH EVERY 6 HOURS NEEDED completed ibupro fen 600 MG Oral Tablet [facility] ([facility]) gabapentin 100 MG Oral Capsule gabapenti n 100 mg capsule TAKE ONE CAPSULE BY MOUTH THREE TIMES A DAY gabapentin 100 mg capsule TAKE ONE CAPSU LE BY MOUTH THREE TIMES A DAY completed antonia pentin 100 MG Oral Capsule [facility] ([facility]) Sumatriptan 50 MG Oral Tablet sumatripta n 50 mg tablet TAKE 1 TABLET BY MOUTH NEEDED sumatriptan 50 mg tablet TAKE 1 TABLET BY MOUTH NEEDED completed sumatriptan 50 MG Oral Tablet AT [facility] ([facility]) gabapentin 100 MG Oral Capsule gabapenti n 100 mg capsule TAKE ONE CAPSULE BY MOUTH THREE TIMES A DAY gabapentin 100 mg capsule TAKE ONE CAPSU LE BY MOUTH THREE TIMES A DAY completed antonia pentin 100 MG Oral Capsule [facility] ([facility]) Fluoxetine 10 MG Oral Capsule fluoxetine 10 mg capsule TAKE ONE CAPSULE BY MOUTH EVERY MORNING fluoxetine 10 mg capsule TAKE ONE CAPSULE BY MOUTH ANNEL RY MORNING completed fluoxetine 10 MG Oral Capsule [facility] ([facility]) Buprenorphine 2 MG / Naloxone 0.5 MG Sub lingual Tablet buprenorphine 2 mg- naloxone 0.5 mg sublingual tablet DISSOLVE ONE TABLET UNDER THE TONGUE EVERY EVENING MAX DAILY DOSE ONE TABLET buprenorphine 2 mg-naloxone 0.5 mg subli ngual tablet DISSOLVE ONE TABLET UNDER THE TONGUE EVERY EVENING MAX DAILY DOSE ONE TABLET completed bupreno rphine 2 MG / naloxone 0.5 MG Sublingual Tablet [facility]) topiramate 25 MG Oral Tablet topiramate 25 mg tablet TAKE ONE HALF TABLET BY MOUTH TWICE A DAY topiramate 25 mg tablet TAKE ONE HALF TA BLET BY MOUTH TWICE A DAY completed topiramate 25 MG Oral Tablet [facility] ([facility]) gabapentin 100 MG Oral Capsule gabapenti n 100 mg capsule TAKE ONE CAPSULE BY MOUTH THREE TIMES A DAY gabapentin 100 mg capsule TAKE ONE CAPSU LE BY MOUTH THREE TIMES A DAY completed antonia pentin 100 MG Oral Capsule [facility] ([facility]) gabapentin 400 MG Oral Capsule gabapenti n 400 mg capsule TAKE ONE CAPSULE BY MOUTH TWICE DAILY gabapentin 400 mg capsule TAKE ONE CAPSU LE BY MOUTH TWICE DAILY completed gabapentin 400 M G Oral Capsule [facility] ([facility]) Citalopram 10 MG Oral Tablet citalopram 10 mg tablet TAKE ONE TABLET BY MOUTH EVERY MORNING citalopram 10 mg tablet TAKE ONE TABLET BY MOUTH EVERY MORNI NG completed citalopram 10 MG Oral Tablet [facility] ([facility]) Doxycycline Monohydrate 100 MG Oral Caps ule doxycycline monohydrate 100 mg capsule TAKE ONE CAPSULE BY MOUTH EVERY 12 HOURS doxycycline monohydrate 100 mg capsule TAKE ONE CAPSULE BY MOUTH EVERY 12 HOURS completed doxycycline monohydrate 100 MG Oral Capsule [facility] ([facility]) Buprenorphine 4 MG / Naloxone 1 MG Oral Strip buprenorphine 4 mg-naloxone [address] ONE FILM UNDER THE TONGUE EVERY DAY MAXIMUM DAILY DOSE 1 buprenorphine 4 mg-naloxone 1 mg subling ual film PLACE ONE FILM UNDER THE TONGUE EVERY DAY MAXIMUM DAILY DOSE 1 completed buprenorphine 4 MG / naloxone 1 MG Sublingual Film [facility] ([facility]) buspirone hydrochloride 7.5 MG Oral Tabl et buspirone 7.5 mg tablet TAKE ONE TABLET BY MOUTH TWICE DAILY buspirone 7.5 mg tablet TAKE ONE TABLET BY MOUTH TWICE DAILY completed bu spirone hydrochloride 7.5 MG Oral Tablet [facility] ([facility]) Fluoxetine 10 MG Oral Capsule fluoxetine 10 mg capsule TAKE ONE CAPSULE BY MOUTH EVERY MORNING fluoxetine 10 mg capsule TAKE ONE CAPSULE BY MOUTH ANNEL RY MORNING completed fluoxetine 10 MG Oral Capsule [facility] ([facility]) buspirone hydrochloride 7.5 MG Oral Tabl et buspirone 7.5 mg tablet TAKE ONE TABLET BY MOUTH TWICE DAILY buspirone 7.5 mg tablet TAKE ONE TABLET BY MOUTH TWICE DAILY completed bu spirone hydrochloride 7.5 MG Oral Tablet [facility] ([facility]) Buprenorphine 8 MG / Naloxone 2 [...] MG / naloxone 2 MG Sublingual Film [facility] ([facility]) tramadol hydrochloride 50 MG Oral Tablet tramadol 50 mg tablet TAKE ONE TABLET BY MOUTH EVERY 3 HOURS NEEDED FOR 14 DAYS MAXIMUM DAILY DOSE 3 tramadol 50 mg tablet TAKE ONE TABLET BY MOUTH EVERY 3 HOURS NEEDED FOR 14 DAYS MAXIMUM DAILY DOSE 3 completed tramadol hydrochloride 50 MG Oral Tablet [facility] ([facility]) Clindamycin 300 MG Oral Capsule clindamy michele HCl 300 mg capsule TAKE ONE CAPSULE BY MOUTH EVERY 6 HOURS UNTIL FINISHED clindamycin HCl 300 mg capsule TAKE ONE CAPSULE BY MOUTH EVERY 6 HOURS UNTIL FINISHED completed clindamycin 300 MG Oral Capsule [facility] ([facility]) Buprenorphine 2 MG / Naloxone 0.5 [...] / naloxone 0.5 MG Sublingual Tablet [facility] ([facility]) Buprenorphine 2 MG / Naloxone 0.5 [...] / naloxone 0.5 MG Sublingual Tablet [facility] ([facility]) Ibuprofen 600 MG Oral Tablet ibuprofen 6 00 mg tablet TAKE ONE TABLET BY MOUTH EVERY 6 HOURS NEEDED ibuprofen 600 mg tablet TAKE ONE TABLET BY MOUTH EVERY 6 HOURS NEEDED completed ibupro fen 600 MG Oral Tablet [facility] ([facility]) Buprenorphine 8 MG / Naloxone 2 MG Subli ngual Tablet buprenorphine 8 mg-naloxone 2 mg sublingual tablet DISSOLVE ONE TABLET UNDER THE TONGUE TWICE DAILY MAX DAILY DOSE TWO TABLETS buprenorphine 8 mg-naloxone 2 mg subling ual tablet DISSOLVE ONE TABLET UNDER THE TONGUE TWICE DAILY MAX DAILY DOSE TWO TABLETS completed buprenorphine 8 MG / n aloxone 2 MG Sublingual Tablet [facility] ([facility]) zolmitriptan 5 MG Oral Tablet zolmitript an 5 mg tablet TAKE ONE TABLET BY MOUTH ONCE DAILY NEEDED zolmitriptan 5 mg tablet TAKE ONE TABLET BY MOUTH ONCE DAILY NEEDED completed zolmit riptan 5 MG Oral Tablet [facility] ([facility]) Buprenorphine 4 MG / Naloxone 1 MG Oral Strip buprenorphine 4 mg-naloxone [address] ONE FILM UNDER THE TONGUE EVERY DAY MAXIMUM DAILY DOSE 1 buprenorphine 4 mg-naloxone 1 mg subling ual film PL[address] ONE FILM UNDER THE TONGUE EVERY DAY MAXIMUM DAILY DOSE 1 completed buprenorphine 4 MG / naloxone 1 MG Sublingual Film [facility] ([facility]) 0.5 ML Sumatriptan 6 MG Cartridge sumatr iptan 6 mg/0.5 mL subcutaneous pen injector USE ONE INJECTOR ONCE DAILY NEEDED FOR MIGRAINES sumatriptan 6 mg/0.5 mL subcutaneous pen injector USE ONE INJECTOR ONCE DAILY NEEDED FOR MIGRAINES completed 0.5 ML sumat riptan 12 MG/ML Cartridge [facility] ([facility]) Doxycycline Monohydrate 100 MG Oral Caps ule doxycycline monohydrate 100 mg capsule TAKE ONE CAPSULE BY MOUTH EVERY 12 HOURS doxycycline monohydrate 100 mg capsule TAKE ONE CAPSULE BY MOUTH EVERY 12 HOURS completed doxycycline monohydrate 100 MG Oral Capsule [facility] ([facility]) Ibuprofen 200 MG Oral Tablet ibuprofen 2 00 mg tablet TAKE 2 TABLETS BY MOUTH EVERY 4 6 HOURS NEEDED ibuprofen 200 mg tablet TAKE 2 TABLETS B Y MOUTH EVERY 4 6 HOURS NEEDED completed ib uprofen 200 MG Oral Tablet [facility] ([facility]) tramadol hydrochloride 50 MG Oral Tablet tramadol 50 mg tablet TAKE ONE TABLET BY MOUTH EVERY 3 HOURS NEEDED FOR 14 DAYS MAXIMUM DAILY DOSE 3 tramadol 50 mg tablet TAKE ONE TABLET BY MOUTH EVERY 3 HOURS NEEDED FOR 14 DAYS MAXIMUM DAILY DOSE 3 completed tramadol hydrochloride 50 MG Oral Tablet [facility] ([facility]) buspirone hydrochloride 15 MG Oral Table t buspirone 15 mg tablet TAKE ONE TABLET BY MOUTH TWICE DAILY buspirone 15 mg tablet TAKE ONE TABLET B Y MOUTH TWICE DAILY completed buspirone hydroc hloride 15 MG Oral Tablet [facility] ([facility]) gabapentin 300 MG Oral Capsule gabapenti n 300 mg capsule TAKE ONE CAPSULE BY MOUTH TWICE DAILY gabapentin 300 mg capsule TAKE ONE CAPSU LE BY MOUTH TWICE DAILY completed gabapentin 300 M G Oral Capsule [facility] ([facility]) Cephalexin 500 MG Oral Capsule cephalexi n 500 mg capsule TAKE ONE CAPSULE BY MOUTH EVERY 8 HOURS cephalexin 500 mg capsule TAKE ONE CAPSU LE BY MOUTH EVERY 8 HOURS completed cephalexin 500 M G Oral Capsule [facility] ([facility]) Sumatriptan 50 MG Oral Tablet sumatripta n 50 mg tablet TAKE 1 TABLET BY MOUTH NEEDED sumatriptan 50 mg tablet TAKE 1 TABLET BY MOUTH NEEDED completed sumatriptan 50 MG Oral Tablet AT [facility] ([facility]) zolmitriptan 5 MG Oral Tablet zolmitript an 5 mg tablet TAKE ONE TABLET BY MOUTH ONCE DAILY NEEDED zolmitriptan 5 mg tablet TAKE ONE TABLET BY MOUTH ONCE DAILY NEEDED completed zolmit riptan 5 MG Oral Tablet [facility] ([facility]) Sodium Fluoride 0.011 MG/MG Toothpaste [ Denta 5000 Plus] Denta 5000 Plus 1.1 % cream Denta 5000 Plus 1.1 % cream completed sodium fluoride 0.011 MG/MG Toothpaste [Denta 5000 Plus] [facility] ([facility]) Sodium Fluoride 0.011 MG/MG Toothpaste [ Denta 5000 Plus] Denta 5000 Plus 1.1 % cream Denta 5000 Plus 1.1 % cream completed sodium fluoride 0.011 MG/MG Toothpaste [Denta 5000 Plus] [facility] ([facility]) Ibuprofen 200 MG Oral Tablet ibuprofen 2 00 mg tablet TAKE 2 TABLETS BY MOUTH EVERY 4 6 HOURS NEEDED ibuprofen 200 mg tablet TAKE 2 TABLETS B Y MOUTH EVERY 4 6 HOURS NEEDED completed ib uprofen 200 MG Oral Tablet [facility] ([facility]) Citalopram 10 MG Oral Tablet citalopram 10 mg tablet TAKE ONE TABLET BY MOUTH EVERY MORNING citalopram 10 mg tablet TAKE ONE TABLET BY MOUTH EVERY MORNI NG completed citalopram 10 MG Oral Tablet [facility] ([facility]) buspirone hydrochloride 7.5 MG Oral Tabl et buspirone 7.5 mg tablet TAKE ONE TABLET BY MOUTH TWICE DAILY buspirone 7.5 mg tablet TAKE ONE TABLET BY MOUTH TWICE DAILY completed bu spirone hydrochloride 7.5 MG Oral Tablet [facility] ([facility]) zolmitriptan 5 MG Oral Tablet zolmitript an 5 mg tablet TAKE ONE TABLET BY MOUTH ONCE DAILY NEEDED zolmitriptan 5 mg tablet TAKE ONE TABLET BY MOUTH ONCE DAILY NEEDED completed zolmit riptan 5 MG Oral Tablet [facility] ([facility]) Cephalexin 500 MG Oral Capsule cephalexi n 500 mg capsule TAKE ONE CAPSULE BY MOUTH EVERY 8 HOURS cephalexin 500 mg capsule TAKE ONE CAPSU LE BY MOUTH EVERY 8 HOURS completed cephalexin 500 M G Oral Capsule [facility] ([facility]) Cephalexin 500 MG Oral Capsule cephalexi n 500 mg capsule TAKE ONE CAPSULE BY MOUTH EVERY 8 HOURS cephalexin 500 mg capsule TAKE ONE CAPSU LE BY MOUTH EVERY 8 HOURS completed cephalexin 500 M G Oral Capsule [facility] ([facility]) Buprenorphine 4 MG / Naloxone 1 MG Oral Strip buprenorphine 4 mg-naloxone [address] ONE FILM UNDER THE TONGUE EVERY DAY MAXIMUM DAILY DOSE 1 buprenorphine 4 mg-naloxone 1 mg subling ual film PL[address] ONE FILM UNDER THE TONGUE EVERY DAY MAXIMUM DAILY DOSE 1 completed buprenorphine 4 MG / naloxone 1 MG Sublingual Film [facility]) topiramate 50 MG Oral Tablet topiramate 50 mg tablet TAKE ONE TABLET BY MOUTH ONCE DAILY topiramate 50 mg tablet TAKE ONE TABLET BY MOUTH ONCE DAILY completed topiramate 50 MG Oral Tab let [facility] ([facility]) Buprenorphine 4 MG / Naloxone 1 MG Oral Strip buprenorphine 4 mg-naloxone [address] ONE FILM UNDER THE TONGUE EVERY DAY MAXIMUM DAILY DOSE 1 buprenorphine 4 mg-naloxone 1 mg subling ual film PL[address] ONE FILM UNDER THE TONGUE EVERY DAY MAXIMUM DAILY DOSE 1 completed buprenorphine 4 MG / naloxone 1 MG Sublingual Film [facility] ([facility]) Fluoxetine 10 MG Oral Capsule fluoxetine 10 mg capsule TAKE ONE CAPSULE BY MOUTH EVERY MORNING fluoxetine 10 mg capsule TAKE ONE CAPSULE BY MOUTH ANNEL RY MORNING completed fluoxetine 10 MG Oral Capsule [facility] ([facility]) Buprenorphine 4 MG / Naloxone 1 MG Oral Strip buprenorphine 4 mg-naloxone [address] ONE FILM UNDER THE TONGUE EVERY DAY MAXIMUM DAILY DOSE 1 buprenorphine 4 mg-naloxone 1 mg subling ual film PL[address] ONE FILM UNDER THE TONGUE EVERY DAY MAXIMUM DAILY DOSE 1 completed buprenorphine 4 MG / naloxone 1 MG Sublingual Film [facility] ([facility]) Cephalexin 500 MG Oral Capsule cephalexi n 500 mg capsule TAKE ONE CAPSULE BY MOUTH EVERY 8 HOURS cephalexin 500 mg capsule TAKE ONE CAPSU LE BY MOUTH EVERY 8 HOURS completed cephalexin 500 M G Oral Capsule [facility] ([facility]) Ibuprofen 200 MG Oral Tablet ibuprofen 2 00 mg tablet TAKE 2 TABLETS BY MOUTH EVERY 4 6 HOURS NEEDED ibuprofen 200 mg tablet TAKE 2 TABLETS B Y MOUTH EVERY 4 6 HOURS NEEDED completed ib uprofen 200 MG Oral Tablet [facility] ([facility]) Buprenorphine 4 MG / Naloxone 1 MG Oral Strip buprenorphine 4 mg-naloxone [address] ONE FILM UNDER THE TONGUE EVERY DAY MAXIMUM DAILY DOSE 1 buprenorphine 4 mg-naloxone 1 mg subling ual film PL[address] ONE FILM UNDER THE TONGUE EVERY DAY MAXIMUM DAILY DOSE 1 completed buprenorphine 4 MG / naloxone 1 MG Sublingual Film [facility] ([facility]) Buprenorphine 8 MG / Naloxone 2 MG Subli ngual Tablet buprenorphine 8 mg-naloxone 2 mg sublingual tablet DISSOLVE ONE TABLET UNDER THE TONGUE TWICE DAILY MAX DAILY DOSE TWO TABLETS buprenorphine 8 mg-naloxone 2 mg subling ual tablet DISSOLVE ONE TABLET UNDER THE TONGUE TWICE DAILY MAX DAILY DOSE TWO TABLETS completed buprenorphine 8 MG / n aloxone 2 MG Sublingual Tablet [facility] ([facility]) gabapentin 100 MG Oral Capsule gabapenti n 100 mg capsule TAKE ONE CAPSULE BY MOUTH THREE TIMES A DAY gabapentin 100 mg capsule TAKE ONE CAPSU LE BY MOUTH THREE TIMES A DAY completed antonia pentin 100 MG Oral Capsule [facility] ([facility]) gabapentin 300 MG Oral Capsule gabapenti n 300 mg capsule TAKE ONE CAPSULE BY MOUTH TWICE DAILY gabapentin 300 mg capsule TAKE ONE CAPSU LE BY MOUTH TWICE DAILY completed gabapentin 300 M G Oral Capsule [facility] ([facility]) buspirone hydrochloride 7.5 MG Oral Tabl et buspirone 7.5 mg tablet TAKE ONE TABLET BY MOUTH TWICE DAILY buspirone 7.5 mg tablet TAKE ONE TABLET BY MOUTH TWICE DAILY completed bu spirone hydrochloride 7.5 MG Oral Tablet [facility] ([facility]) 0.5 ML Sumatriptan 6 MG Cartridge sumatr iptan 6 mg/0.5 mL subcutaneous pen injector USE ONE INJECTOR ONCE DAILY NEEDED FOR MIGRAINES sumatriptan 6 mg/0.5 mL subcutaneous pen injector USE ONE INJECTOR ONCE DAILY NEEDED FOR MIGRAINES completed 0.5 ML sumat riptan 12 MG/ML Cartridge [facility] ([facility]) 0.5 ML Sumatriptan 6 MG Cartridge sumatr iptan 6 mg/0.5 mL subcutaneous pen injector USE ONE INJECTOR ONCE DAILY NEEDED FOR MIGRAINES sumatriptan 6 mg/0.5 mL subcutaneous pen injector USE ONE INJECTOR ONCE DAILY NEEDED FOR MIGRAINES completed 0.5 ML sumat riptan 12 MG/ML Cartridge [facility] ([facility]) Clindamycin 300 MG Oral Capsule clindamy michele HCl 300 mg capsule TAKE ONE CAPSULE BY MOUTH EVERY 6 HOURS UNTIL FINISHED clindamycin HCl 300 mg capsule TAKE ONE CAPSULE BY MOUTH EVERY 6 HOURS UNTIL FINISHED completed clindamycin 300 MG Oral Capsule [facility] ([facility]) Sumatriptan 50 MG Oral Tablet sumatripta n 50 mg tablet TAKE 1 TABLET BY MOUTH NEEDED sumatriptan 50 mg tablet TAKE 1 TABLET BY MOUTH NEEDED completed sumatriptan 50 MG Oral Tablet AT [facility]) buspirone hydrochloride 7.5 MG Oral Tabl et buspirone 7.5 mg tablet TAKE ONE TABLET BY MOUTH TWICE DAILY buspirone 7.5 mg tablet TAKE ONE TABLET BY MOUTH TWICE DAILY completed bu spirone hydrochloride 7.5 MG Oral Tablet [facility]LA[facility] ([facility]) Sodium Fluoride 0.011 MG/MG Toothpaste [ Denta 5000 Plus] Denta 5000 Plus 1.1 % cream Denta 5000 Plus 1.1 % cream completed sodium fluoride 0.011 MG/MG Toothpaste [Denta 5000 Plus] [facility] ([facility]) Doxycycline Monohydrate 100 MG Oral Caps ule doxycycline monohydrate 100 mg capsule TAKE ONE CAPSULE BY MOUTH EVERY 12 HOURS doxycycline monohydrate 100 mg capsule TAKE ONE CAPSULE BY MOUTH EVERY 12 HOURS completed doxycycline monohydrate 100 MG Oral Capsule [facility] ([facility]) Clindamycin 300 MG Oral Capsule clindamy michele HCl 300 mg capsule TAKE ONE CAPSULE BY MOUTH EVERY 6 HOURS UNTIL FINISHED clindamycin HCl 300 mg capsule TAKE ONE CAPSULE BY MOUTH EVERY 6 HOURS UNTIL FINISHED completed clindamycin 300 MG Oral Capsule [facility] ([facility]) topiramate 25 MG Oral Tablet topiramate 25 mg tablet TAKE ONE HALF TABLET BY MOUTH TWICE A DAY topiramate 25 mg tablet TAKE ONE HALF TA BLET BY MOUTH TWICE A DAY completed topiramate 25 MG Oral Tablet [facility] ([facility]) Buprenorphine 2 MG / Naloxone 0.5 MG Sub lingual Tablet buprenorphine 2 mg- naloxone 0.5 mg sublingual tablet DISSOLVE ONE TABLET UNDER THE TONGUE EVERY EVENING MAX DAILY DOSE ONE TABLET buprenorphine 2 mg-naloxone 0.5 mg subli ngual tablet DISSOLVE ONE TABLET UNDER THE TONGUE EVERY EVENING MAX DAILY DOSE ONE TABLET completed bupreno rphine 2 MG / naloxone 0.5 MG Sublingual Tablet [facility] ([facility]) Clindamycin 300 MG Oral Capsule clindamy michele HCl 300 mg capsule TAKE ONE CAPSULE BY MOUTH EVERY 6 HOURS UNTIL FINISHED clindamycin HCl 300 mg capsule TAKE ONE CAPSULE BY MOUTH EVERY 6 HOURS UNTIL FINISHED completed clindamycin 300 MG Oral Capsule [facility] ([facility]) Ibuprofen 200 MG Oral Tablet ibuprofen 2 00 mg tablet TAKE 2 TABLETS BY MOUTH EVERY 4 6 HOURS NEEDED ibuprofen 200 mg tablet TAKE 2 TABLETS B Y MOUTH EVERY 4 6 HOURS NEEDED completed ib uprofen 200 MG Oral Tablet [facility] ([facility]) topiramate 50 MG Oral Tablet topiramate 50 mg tablet TAKE ONE TABLET BY MOUTH ONCE DAILY topiramate 50 mg tablet TAKE ONE TABLET BY MOUTH ONCE DAILY completed topiramate 50 MG Oral Tab let [facility] ([facility]) gabapentin 100 MG Oral Capsule gabapenti n 100 mg capsule TAKE ONE CAPSULE BY MOUTH THREE TIMES A DAY gabapentin 100 mg capsule TAKE ONE CAPSU LE BY MOUTH THREE TIMES A DAY completed antonia pentin 100 MG Oral Capsule [facility] ([facility]) Clindamycin 300 MG Oral Capsule clindamy michele HCl 300 mg capsule TAKE ONE CAPSULE BY MOUTH EVERY 6 HOURS UNTIL FINISHED clindamycin HCl 300 mg capsule TAKE ONE CAPSULE BY MOUTH EVERY 6 HOURS UNTIL FINISHED completed clindamycin 300 MG Oral Capsule [facility] ([facility]) 0.5 ML Sumatriptan 6 MG Cartridge sumatr iptan 6 mg/0.5 mL subcutaneous pen injector USE ONE INJECTOR ONCE DAILY NEEDED FOR MIGRAINES sumatriptan 6 mg/0.5 mL subcutaneous pen injector USE ONE INJECTOR ONCE DAILY NEEDED FOR MIGRAINES completed 0.5 ML sumat riptan 12 MG/ML Cartridge [facility] ([facility]) Buprenorphine 8 MG / Naloxone 2 MG [...] MG / naloxone 2 MG Sublingual Film [facility] ([facility]) tramadol hydrochloride 50 MG Oral Tablet tramadol 50 mg tablet TAKE ONE TABLET BY MOUTH EVERY 3 HOURS NEEDED FOR 14 DAYS MAXIMUM DAILY DOSE 3 tramadol 50 mg tablet TAKE ONE TABLET BY MOUTH EVERY 3 HOURS NEEDED FOR 14 DAYS MAXIMUM DAILY DOSE 3 completed tramadol hydrochloride 50 MG Oral Tablet [facility] ([facility]) topiramate 50 MG Oral Tablet topiramate 50 mg tablet TAKE ONE TABLET BY MOUTH ONCE DAILY topiramate 50 mg tablet TAKE ONE TABLET BY MOUTH ONCE DAILY completed topiramate 50 MG Oral Tab let [facility] ([facility]) Buprenorphine 4 MG / Naloxone 1 MG Oral Strip buprenorphine 4 mg-naloxone [address] ONE FILM UNDER THE TONGUE EVERY DAY MAXIMUM DAILY DOSE 1 buprenorphine 4 mg-naloxone 1 mg subling ual film PLACE ONE FILM UNDER THE TONGUE EVERY DAY MAXIMUM DAILY DOSE 1 completed buprenorphine 4 MG / naloxone 1 MG Sublingual Film [facility] ([facility]) topiramate 25 MG Oral Tablet topiramate 25 mg tablet TAKE ONE HALF TABLET BY MOUTH TWICE A DAY topiramate 25 mg tablet TAKE ONE HALF TA BLET BY MOUTH TWICE A DAY completed topiramate 25 MG Oral Tablet [facility] ([facility]) Sumatriptan 50 MG Oral Tablet sumatripta n 50 mg tablet TAKE 1 TABLET BY MOUTH NEEDED sumatriptan 50 mg tablet TAKE 1 TABLET BY MOUTH NEEDED completed sumatriptan 50 MG Oral Tablet AT [facility] ([facility]) buspirone hydrochloride 7.5 MG Oral Tabl et buspirone 7.5 mg tablet TAKE ONE TABLET BY MOUTH TWICE DAILY buspirone 7.5 mg tablet TAKE ONE TABLET BY MOUTH TWICE DAILY completed bu spirone hydrochloride 7.5 MG Oral Tablet [facility] ([facility]) Cephalexin 500 MG Oral Capsule cephalexi n 500 mg capsule TAKE ONE CAPSULE BY MOUTH EVERY 8 HOURS cephalexin 500 mg capsule TAKE ONE CAPSU LE BY MOUTH EVERY 8 HOURS completed cephalexin 500 M G Oral Capsule [facility] ([facility]) Citalopram 10 MG Oral Tablet citalopram 10 mg tablet TAKE ONE TABLET BY MOUTH EVERY MORNING citalopram 10 mg tablet TAKE ONE TABLET BY MOUTH EVERY MORNI NG completed citalopram 10 MG Oral Tablet [facility] ([facility]) Sumatriptan 50 MG Oral Tablet sumatripta n 50 mg tablet TAKE 1 TABLET BY MOUTH NEEDED sumatriptan 50 mg tablet TAKE 1 TABLET BY MOUTH NEEDED completed sumatriptan 50 MG Oral Tablet AT [facility] ([facility]) Insurance Providers Payer name Policy type / Coverage type Policy ID Covered democrat ID Covered democrat's relationship to lindsey Policy Lindsey Plan Information Managed Care Rudi P [id number] S [id number] Medicaid S [id number] S [id number] SELF PAY UNAVAILABLE SP UNAVAILA BLE Sliding Fee Scale P [id number] S [id number] UN COMMUNITY PLAN MCDO [id number] SP [id number] UNHC XIX HMO-O/P [id number] [facility]-O/P [id number] 18 [id number] RUDI [id number] SP [id number] SELF PAY ONLY [id number] SP [id number] Problems, Conditions, and Diagnoses Code Display Name Description Problem Type Effective Dates Data Source(s) 576091033 Cervical lymphadenopathy Cervical Lymphadenopathy Prob bautista 04/20/2021 12:00:00 AM EDT [facility] ([facility]) [id number] Cervical lymphadenopathy Cervical Lymphadenopathy Prob bautista 04/20/2021 12:00:00 AM EDT [facility] ([facility]) [id number] Kidney stone Kidney stone Problem 11/30/2020 12:00:00 A M EDT MEDENT ([facility]) [id number] Migraine Migraine Problem 11/30/2020 12:00:00 AM ED T MEDENT ([facility]) [id number] Tobacco user Tobacco User Problem 10/16/2020 12:00:00 A M DAMON LOZANO ([facility]) [id number] Tobacco user Tobacco User Problem 10/16/2020 12:00:00 A M DAMON LOZANO ([facility]) [id number] Tobacco user Tobacco User Problem 10/16/2020 12:00:00 A M DAMON LOZANO ([facility]) [id number] Tobacco user Tobacco User Problem 10/16/2020 12:00:00 A M DAMON LOZANO ([facility]) [id number] Tobacco user Tobacco User Problem 10/16/2020 12:00:00 A M DAMON LOZANO ([facility]) [id number] Tobacco user Tobacco User Problem 10/16/2020 12:00:00 A M DAMON LOZANO ([facility]) [id number] Migraine Migraine Problem 08/11/2020 12:00:00 AM LUCIANA LOZANO ([facility]) [id number] Restless legs Restless Legs Problem 08/11/2020 12:00:00 AM EST BLAKE ([facility]) [id number] Opioid dependence Opioid Dependence Problem 08/11/2020 12:00:00 AM DAMON LOZANO ([facility]) [id number] Generalized anxiety disorder Generalized Anxiety Disor akhil Problem 08/11/2020 12:00:00 AM EST [facility] ([facility]) [id number] Migraine Migraine Problem 08/11/2020 12:00:00 AM LUCIANA LOZANO ([facility]) [id number] Restless legs Restless Legs Problem 08/11/2020 12:00:00 AM EST [facility]KE ([facility]) [id number] Opioid dependence Opioid Dependence Problem 08/11/2020 12:00:00 AM EST [facility] ([facility]) [id number] Generalized anxiety disorder Generalized Anxiety Disor akhil Problem 08/11/2020 12:00:00 AM EST [facility] ([facility]) [id number] Migraine Migraine Problem 08/11/2020 12:00:00 AM ES T [facility]KE ([facility]) [id number] Restless legs Restless Legs Problem 08/11/2020 12:00:00 AM EST [facility] ([facility]) [id number] Opioid dependence Opioid Dependence Problem 08/11/2020 12:00:00 AM EST [facility] ([facility]) [id number] Generalized anxiety disorder Generalized Anxiety Disor akhil Problem 08/11/2020 12:00:00 AM EST [facility] ([facility]) [id number] Migraine Migraine Problem 08/11/2020 12:00:00 AM ES T [facility]KE ([facility]) [id number] Restless legs Restless Legs Problem 08/11/2020 12:00:00 AM EST [facility] ([facility]) [id number] Opioid dependence Opioid Dependence Problem 08/11/2020 12:00:00 AM EST [facility] ([facility]) [id number] Generalized anxiety disorder Generalized Anxiety Disor akhil Problem 08/11/2020 12:00:00 AM EST [facility] ([facility]) [id number] Migraine Migraine Problem 08/11/2020 12:00:00 AM ES T [facility] ([facility]) [id number] Restless legs Restless Legs Problem 08/11/2020 12:00:00 AM EST [facility] ([facility]) [id number] Opioid dependence Opioid Dependence Problem 08/11/2020 12:00:00 AM EST [facility] ([facility]) [id number] Generalized anxiety disorder Generalized Anxiety Disor akhil Problem 08/11/2020 12:00:00 AM EST [facility] ([facility]) [id number] Migraine Migraine Problem 08/11/2020 12:00:00 AM ES T [facility] ([facility]) [id number] Restless legs Restless Legs Problem 08/11/2020 12:00:00 AM DAMON LOZANO ([facility]) [id number] Opioid dependence Opioid Dependence Problem 08/11/2020 12:00:00 AM EST [facility] ([facility]) [id number] Generalized anxiety disorder Generalized Anxiety Disor akhil Problem 08/11/2020 12:00:00 AM EST [facility] ([facility]) [id number] Migraine Migraine Problem 08/11/2020 12:00:00 AM LUCIANA LOZANO ([facility]) [id number] Restless legs Restless Legs Problem 08/11/2020 12:00:00 AM EST [facility] ([facility]) [id number] Opioid dependence Opioid Dependence Problem 08/11/2020 12:00:00 AM EST [facility] ([facility]) [id number] Generalized anxiety disorder Generalized Anxiety Disor akhil Problem 08/11/2020 12:00:00 AM DAMON LOZANO ([facility]) [id number] Migraine Migraine Problem 08/11/2020 12:00:00 AM LUCIANA LOZANO ([facility]) [id number] Restless legs Restless Legs Problem 08/11/2020 12:00:00 AM DAMON LOZANO ([facility]) [id number] Opioid dependence Opioid Dependence Problem 08/11/2020 12:00:00 AM EST [facility] ([facility]) [id number] Generalized anxiety disorder Generalized Anxiety Disor akhil Problem 08/11/2020 12:00:00 AM DAMON LOZANO ([facility]) Surgeries/Procedures Procedure Description Date Indications Data Source(s) OFFICE OUTPATIENT VISIT 25 MINUTES 06/18/2021 12:00:00 AM EDT MEDENT ([facility]) US, neck, soft tissue 04/20/2021 12:00:00 AM EDT [facility] ([facility]) OFFICE OUTPATIENT VISIT 25 MINUTES 03/10/2021 12:00:00 AM EDT MEDENT ([facility]) MRI BRAIN BRAIN STEM W/O CONTRAST MATERIAL 12/09/2020 12:00:00 AM EDT MEDENT ([facility]) MRI BRAIN BRAIN STEM W/O CONTRAST MATERIAL 12/09/2020 12:00:00 AM EDT MEDENT ([facility]) OFFICE OUTPATIENT NEW 60 MINUTES 11/30/2020 12:00:00 A M EDT BOB ([facility]) Results ID Date Data Source [id number] 04/12/2021 10:37:00 AM EDT [facility] ([facility]) Name Value Range Interpretation Code Description Data Magui rce(s) Supporting Document(s) Thyrotropin [Units/volume] in Serum or Plasma 2.18 mIU/L 0.40-4.5 0 TSH W/reflex to FT4 [facility] ([facility]) ID Date Data Source [id number] 04/12/2021 10:37:00 AM EDT [facility] ([facility]) Name Value Range Interpretation Code Description Data Magui rce(s) Supporting Document(s) Glucose [Mass/volume] in Serum or Plasma 129 mg/dL 65-99 Above high normal Glucose [facility] ([facility]) Glomerular filtration rate/1.73 sq M.pre dicted among non-blacks [Volume Rate/Area] in Serum, Plasma or Blood by Creatinine-based formula (CKD-EPI) 114 mL/min/1.73m2 > or = 60 eGFR Non-afr. Peruvian BLAKE ([facility]) Creatinine [Mass/volume] in Serum or Plasma 0.88 mg/dL 0.60-1.35 Creatinine [facility] ([facility]) Urea nitrogen [Mass/volume] in Serum or Plasma 14 mg/dL 7-25 Urea Nitrogen (BUN) [facility] ([facility]) Urea nitrogen/Creatinine [Mass Ratio] in Serum or Plasma not applic able 6-22 BUN/creatinine Ratio [facility] ([facility]) Glomerular filtration rate/1.73 sq M.pre dicted among blacks [Volume Rate/Area] in Serum, Plasma or Blood by Creatinine-based formula (CKD-EPI) 132 mL/min/1.73m2 > or = 60 eGFR [facility] ([facility]) Potassium [Moles/volume] in Serum or Plasma 4.0 mmol/L 3.5-5.3 Potassium [facility] ([facility]) Sodium [Moles/volume] in Serum or Plasma 139 mmol/L 135-146 Sodium [facility] ([facility]) Chloride [Moles/volume] in Serum or Plasma 103 mmol/L 98-110 Chloride [facility] ([facility]) Calcium [Mass/volume] in Serum or Plasma 9.8 mg/dL 8.6-10.3 Calcium [facility] ([facility]) Carbon dioxide, total [Moles/volume] in Serum or Plasma 27 mmol/L 20-32 Carbon Dioxide [facility] ([facility]) Globulin [Mass/volume] in Serum by calculation 2.1 g/dL_(calc) 1.9- 3.7 Globulin [facility] ([facility]) Protein [Mass/volume] in Serum or Plasma 6.9 g/dL 6.1-8.1 Protein, Total [facility] ([facility]) Albumin [Mass/volume] in Serum or Plasma 4.8 g/dL 3.6-5.1 Albumin [facility] ([facility]) Aspartate aminotransferase [Enzymatic activity/volume] in Serum or Plasma 22 U/L 10-40 Ast [facility]ER ([facility]) Albumin/Globulin [Mass Ratio] in Serum or Plasma 2.3 (calc) 1.0-2 .5 Albumin/globulin Ratio [facility] ([facility]) Bilirubin.total [Mass/volume] in Serum or Plasma 0.5 mg/dL 0.2-1 .2 Bilirubin, Total [facility] ([facility]) Alkaline phosphatase [Enzymatic activity/volume] in Serum or Plasma 78 U/L 36-130 Alkaline Phosphatase [facility] ([facility]) Alanine aminotransferase [Enzymatic activity/volume] in Seru m or Plasma 26 U/L 9-46 Alt [facility]LAKE ([facility]) ID Date Data Source [id number] 04/12/2021 10:37:00 AM EDT [facility] ([facility]) Name Value Range Interpretation Code Description Data Magui rce(s) Supporting Document(s) Cholesterol [Mass/volume] in Serum or Plasma 189 mg/dL <200 Cholesterol, Total [facility] ([facility]) Triglyceride [Mass/volume] in Serum or Plasma 114 mg/dL <150 Triglycerides [facility]ER ([facility]) Cholesterol in LDL [Mass/volume] in Serum or Plasma by calculation 124 mg/dL_(calc) <100 Above high normal LDL-cholesterol BLAKE ([facility]) Cholesterol in HDL [Mass/volume] in Serum or Plasma 43 mg/dL > or = 40 HDL Cholesterol [facility] ([facility]) Cholesterol.total/Cholesterol in HDL [Mass Ratio] in Serum o r Plasma 4.4 calc <5.0 Chol/hdlc Ratio [facility]KE ([facility]) Cholesterol non HDL [Mass/volume] in Serum or Plasma 146 mg/dL_( calc) <130 Above high normal Non HDL Cholesterol [facility]KE ([facility]) ID Date Data Source [id number] 04/12/2021 10:37:00 AM EDT [facility]) Name Value Range Interpretation Code Description Data Magui rce(s) Supporting Document(s) Thyrotropin [Units/volume] in Serum or Plasma 2.18 mIU/L 0.40-4.5 0 TSH W/reflex to FT4 [facility]) ID Date Data Source [id number] 04/12/2021 10:37:00 AM EDT [facility]) Name Value Range Interpretation Code Description Data Magui rce(s) Supporting Document(s) Glucose [Mass/volume] in Serum or Plasma 129 mg/dL 65-99 Above high normal Glucose [facility]) Creatinine [Mass/volume] in Serum or Plasma 0.88 mg/dL 0.60-1.35 Creatinine [facility]) Glomerular filtration rate/1.73 sq M.pre dicted among non-blacks [Volume Rate/Area] in Serum, Plasma or Blood by Creatinine-based formula (CKD-EPI) 114 mL/min/1.73m2 > or = 60 eGFR Non-afr. [place]uvian BLAKE ([facility]) Urea nitrogen [Mass/volume] in Serum or Plasma 14 mg/dL 7-25 Urea Nitrogen (BUN) [facility]) Glomerular filtration rate/1.73 sq M.pre dicted among blacks [Volume Rate/Area] in Serum, Plasma or Blood by Creatinine-based formula (CKD-EPI) 132 mL/min/1.73m2 > or = 60 eGFR [facility]KE ([facility]) Urea nitrogen/Creatinine [Mass Ratio] in Serum or Plasma not applic able 6-22 BUN/creatinine Ratio [facility] ([facility]) Sodium [Moles/volume] in Serum or Plasma 139 mmol/L 135-146 Sodium [facility] ([facility]) Potassium [Moles/volume] in Serum or Plasma 4.0 mmol/L 3.5-5.3 Potassium [facility] ([facility]) Chloride [Moles/volume] in Serum or Plasma 103 mmol/L 98-110 Chloride [facility] ([facility]) Carbon dioxide, total [Moles/volume] in Serum or Plasma 27 mmol/L 20-32 Carbon Dioxide [facility]ER ([facility]) Albumin [Mass/volume] in Serum or Plasma 4.8 g/dL 3.6-5.1 Albumin [facility] ([facility]) Protein [Mass/volume] in Serum or Plasma 6.9 g/dL 6.1-8.1 Protein, Total [facility]) Globulin [Mass/volume] in Serum by calculation 2.1 g/dL_(calc) 1.9- 3.7 Globulin [facility] ([facility]) Calcium [Mass/volume] in Serum or Plasma 9.8 mg/dL 8.6-10.3 Calcium [facility]) Bilirubin.total [Mass/volume] in Serum or Plasma 0.5 mg/dL 0.2-1 .2 Bilirubin, Total [facility] ([facility]) Alkaline phosphatase [Enzymatic activity/volume] in Serum or Plasma 78 U/L 36-130 Alkaline Phosphatase [facility] ([facility]) Albumin/Globulin [Mass Ratio] in Serum or Plasma 2.3 (calc) 1.0-2 .5 Albumin/globulin Ratio [facility] ([facility]) Alanine aminotransferase [Enzymatic activity/volume] in Seru m or Plasma 26 U/L 9-46 Alt WHITTIER ([facility]) Aspartate aminotransferase [Enzymatic activity/volume] in Serum or Plasma 22 U/L 10-40 Ast BLAKE ([facility]) ID Date Data Source [id number] 04/12/2021 10:37:00 AM EDT BLAKE ([facility]) Name Value Range Interpretation Code Description Data Magui rce(s) Supporting Document(s) Cholesterol [Mass/volume] in Serum or Plasma 189 mg/dL <200 Cholesterol, Total [facility]KE ([facility]) Cholesterol in HDL [Mass/volume] in Serum or Plasma 43 mg/dL > or = 40 HDL Cholesterol [facility] ([facility]) Triglyceride [Mass/volume] in Serum or Plasma 114 mg/dL <150 Triglycerides [facility] ([facility]) Cholesterol in LDL [Mass/volume] in Serum or Plasma by calculation 124 mg/dL_(calc) <100 Above high normal LDL-cholesterol [facility] ([facility]) Cholesterol.total/Cholesterol in HDL [Mass Ratio] in Serum o r Plasma 4.4 calc <5.0 Chol/hdlc Ratio [facility] ([facility]) Cholesterol non HDL [Mass/volume] in Serum or Plasma 146 mg/dL_( calc) <130 Above high normal Non HDL Cholesterol [facility] ([facility]) ID Date Data Source [id number] 10/16/2020 12:42:00 PM EST [facility]ER ([facility]) Name Value Range Interpretation Code Description Data Magui rce(s) Supporting Document(s) HIV 1&2 screen centaur negative negative HIV 1&2 Scree n Centaur [facility] ([facility]) ID Date Data Source [id number] 10/16/2020 12:42:00 PM EST [facility] ([facility]) Name Value Range Interpretation Code Description Data Magui rce(s) Supporting Document(s) hepatitis C virus vincent index 0.1 index <0.8 Hepatiti s C Virus Vincent Index [facility]) ID Date Data Source [id number] 10/16/2020 12:42:00 PM EST [facility]KE ([facility]) Name Value Range Interpretation Code Description Data Magui rce(s) Supporting Document(s) HIV 1&2 screen centaur negative negative HIV 1&2 Scree n Centaur [facility] ([facility]) ID Date Data Source [id number] 10/16/2020 12:42:00 PM EST BLAKE ([facility]) Name Value Range Interpretation Code Description Data Magui rce(s) Supporting Document(s) hepatitis C virus vincent index 0.1 index <0.8 Hepatiti s C Virus Vincent Index [facility] ([facility]) ID Date Data Source [id number] 10/16/2020 12:42:00 PM EST [facility]KE ([facility]) Name Value Range Interpretation Code Description Data Magui rce(s) Supporting Document(s) HIV 1&2 screen centaur negative negative HIV 1&2 Scree n Centaur [facility] ([facility]) ID Date Data Source [id number] 10/16/2020 12:42:00 PM EST [facility]KE ([facility]) Name Value Range Interpretation Code Description Data Magui rce(s) Supporting Document(s) hepatitis C virus vincent index 0.1 index <0.8 Hepatiti s C Virus Vincent Index [facility] ([facility]) ID Date Data Source [id number] 10/16/2020 12:42:00 PM EST BLAKE ([facility]) Name Value Range Interpretation Code Description Data Magui rce(s) Supporting Document(s) HIV 1&2 screen centaur negative negative HIV 1&2 Scree n Centaur BLAKE ([facility]) ID Date Data Source [id number] 10/16/2020 12:42:00 PM EST WHITTIER ([facility]) Name Value Range Interpretation Code Description Data Magui rce(s) Supporting Document(s) hepatitis C virus vincent index 0.1 index <0.8 Hepatiti s C Virus Vincent Index [facility]) ID Date Data Source [id number] 10/16/2020 12:42:00 PM EST WHITTIER ([facility]) Name Value Range Interpretation Code Description Data Magui rce(s) Supporting Document(s) HIV 1&2 screen centaur negative negative HIV 1&2 Scree n Centaur WHITTIER ([facility]) ID Date Data Source [id number] 10/16/2020 12:42:00 PM EST [facility]) Name Value Range Interpretation Code Description Data Magui rce(s) Supporting Document(s) hepatitis C virus vincent index 0.1 index <0.8 Hepatiti s C Virus Vincent Index [facility]) ID Date Data Source [id number] 10/16/2020 12:30:00 PM EST [facility]) Name Value Range Interpretation Code Description Data Magui rce(s) Supporting Document(s) chlamydia DNA amplification negative negative Chlamydi a DNA Amplification WHITTIER ([facility]) GC DNA amplification negative negative GC DNA Amplific ation WHITTIER ([facility]) trichomonas vaginalis (amp) not detected negative Tricho monas Vaginalis (Amp) [facility]) ID Date Data Source [id number] 10/16/2020 12:30:00 PM EST [facility]) Name Value Range Interpretation Code Description Data Magui rce(s) Supporting Document(s) GC DNA amplification negative negative GC DNA Amplific ation WHITTIER ([facility]) chlamydia DNA amplification negative negative Chlamydi a DNA Amplification WHITTIER ([facility]) trichomonas vaginalis (amp) not detected negative [facility] Data Source [id number] 10/16/2020 12:30:00 [facility] Name Value Range Interpretation Code Description Data Magui rce(s) Supporting Document(s) chlamydia DNA amplification negative negative Chlamydi a DNA Amplification BLAKE ([facility]) trichomonas vaginalis (amp) not detected negative Tricho monas Vaginalis (Amp) [facility]LAKE ([facility]) GC DNA amplification negative negative GC DNA Amplific ation BLAKE ([facility]) ID Date Data Source [id number] 10/16/2020 12:30:00 PM EST [facility]) Name Value Range Interpretation Code Description Data Magui rce(s) Supporting Document(s) GC DNA amplification negative negative GC DNA Amplific ation BLAKE ([facility]) trichomonas vaginalis (amp) not detected negative Tricho monas Vaginalis (Amp) WHITTIER ([facility]) chlamydia DNA amplification negative negative Chlamydi a DNA Amplification WHITTIER ([facility]) ID Date Data Source [id number] 10/16/2020 12:30:00 PM EST [facility]) Name Value Range Interpretation Code Description Data Magui rce(s) Supporting Document(s) GC DNA amplification negative negative GC DNA Amplific ation BLAKE ([facility]) chlamydia DNA amplification negative negative Chlamydi a DNA Amplification BLAKE ([facility]) trichomonas vaginalis (amp) not detected negative Tricho monas Vaginalis (Amp) [facility]) ID Date Data Source [id number] 08/18/2020 09:20:00 AM EST [facility]) Name Value Range Interpretation Code Description Data Magui rce(s) Supporting Document(s) ID Date Data Source [id number] 08/18/2020 09:20:00 AM EST BLAKE ([facility]) Name Value Range Interpretation Code Description Data Magui rce(s) Supporting Document(s) ID Date Data Source [id number] 08/18/2020 09:20:00 AM EST BLAKE ([facility]) Name Value Range Interpretation Code Description Data Magui rce(s) Supporting Document(s) ID Date Data Source [id number] 08/18/2020 09:20:00 AM EST BLAKE [facility]) Name Value Range Interpretation Code Description Data Magui rce(s) Supporting Document(s) ID Date Data Source [id number] 08/18/2020 09:20:00 AM EST BLAKE [facility]) Name Value Range Interpretation Code Description Data Magui rce(s) Supporting Document(s) ID Date Data Source [id number] 08/18/2020 09:20:00 AM EST BLAKE [facility]) Name Value Range Interpretation Code Description Data Magui rce(s) Supporting Document(s) ID Date Data Source [id number] 08/11/2020 08:20:00 AM EST BLAKE [facility]) Name Value Range Interpretation Code Description Data Magui rce(s) Supporting Document(s) ID Date Data Source [id number] 08/11/2020 08:20:00 AM EST BLAKE [facility]) Name Value Range Interpretation Code Description Data Magui rce(s) Supporting Document(s) ID Date Data Source [id number] 08/11/2020 08:20:00 AM EST BLAKE [facility]) Name Value Range Interpretation Code Description Data Magui rce(s) Supporting Document(s) ID Date Data Source [id number] 08/11/2020 08:20:00 AM EST BLAKE ([facility]) Name Value Range Interpretation Code Description Data Magui rce(s) Supporting Document(s) ID Date Data Source [id number] 08/11/2020 08:20:00 AM EST BLAKE ([facility]) Name Value Range Interpretation Code Description Data Magui rce(s) Supporting Document(s) ID Date Data Source [id number] 08/11/2020 08:20:00 AM EST BLAKE ([facility]) Name Value Range Interpretation Code Description Data Magui rce(s) Supporting Document(s) ID Date Data Source [id number] 08/11/2020 08:20:00 AM EST BLAKE ([facility]) Name Value Range Interpretation Code Description Data Magui rce(s) Supporting Document(s) Procedure Social History No Information Vital Signs ID Date Data Source UNK Name Value Range Interpretation Code Description Data Source(s) Respiratory rate 12 /min 12 /min [facility] ( [facility], ) Body weight 150.00 [lb_av] 150.00 [lb_av] MEDEN T ([facility]) Body mass index (BMI) [Ratio] 25.7 kg/m2 25.7 k g/m2 [facility] ([facility], ) [place] body weight 130 [lb_av] 130 [lb_av] MEDEN T ([facility], ) Body height 64 [in_i] 64 [in_i] [facility] 5[facility] Diastolic blood pressure 83 mm[Hg] 83 mm[Hg] BLAKE ([facility]) Body height 69 [in_i] 69 [in_i] BLAKE ([facility]) Body mass index (BMI) [Ratio] 21.6 kg/m2 21.6 k g/m2 [facility]KE ([facility]) Systolic blood pressure 145 mm[Hg] 145 mm[Hg] Ailyn THENA ([facility]) Body weight 2336 [oz_av] 2336 [oz_av] BLAKE ([facility]) Body mass index (BMI) [Ratio] 21.6 kg/m2 21.6 k g/m2 [facility]LAKE ([facility]) Diastolic blood pressure 83 mm[Hg] 83 mm[Hg] BLAKE ([facility]) Body height 69 [in_i] 69 [in_i] [facility]LAKE ([facility]) Systolic blood pressure 145 mm[Hg] 145 mm[Hg] [facility] Body weight 2336 [oz_av] 2336 [oz_av] BLAKE ([facility]) Body height 69 [in_i] 69 [in_i] BLAKE ([facility]) Body height 69 [in_i] 69 [in_i] BLAKE ([facility]) Diastolic blood pressure 85 mm[Hg] 85 mm[Hg] BLAKE ([facility]) Body height 69 [in_i] 69 [in_i] BLAKE ([facility]) Body mass index (BMI) [Ratio] 20.7 kg/m2 20.7 k g/m2 [facility] ([facility]) Systolic blood pressure 141 mm[Hg] 141 mm[Hg] A THENA ([facility]) Body weight 2240 [oz_av] 2240 [oz_av] [facility]LAKE ([facility]) Diastolic blood pressure 85 mm[Hg] 85 mm[Hg] BLAKE ([facility]) Body height 69 [in_i] 69 [in_i] BLAKE ([facility]) Body mass index (BMI) [Ratio] 20.7 kg/m2 20.7 k g/m2 [facility]LAKE ([facility]) Systolic blood pressure 141 mm[Hg] 141 mm[Hg] A THENA ([facility]) Body weight 2240 [oz_av] 2240 [oz_av] BLAKE ([facility]) Diastolic blood pressure 85 mm[Hg] 85 mm[Hg] BLAKE ([facility]) Body height 69 [in_i] 69 [in_i] BLAKE ([facility]) Body mass index (BMI) [Ratio] 20.7 kg/m2 20.7 k g/m2 [facility]LAKE ([facility]) Systolic blood pressure 141 mm[Hg] 141 mm[Hg] A THENA ([facility]) Body weight 2240 [oz_av] 2240 [oz_av] BLAKE ([facility]) Body height 64 [in_i] 64 [in_i] MEDENT ([facility], ) 5'4" Respiratory rate 12 /min 12 /min MEDENT ( [facility], ) Body weight 150.00 [lb_av] 150.00 [lb_av] MEDEN T ([facility], ) Body mass index (BMI) [Ratio] 25.7 kg/m2 25.7 k g/m2 MEDENT ([facility], ) [place] body weight 130 [lb_av] 130 [lb_av] MEDEN T ([facility], ) Diastolic blood pressure 82 mm[Hg] 82 mm[Hg] BLAKE ([facility]) Body height 69 [in_i] 69 [in_i] BLAKE ([facility]) Body mass index (BMI) [Ratio] 20.5 kg/m2 20.5 k g/m2 [facility]LAKE ([facility]) Systolic blood pressure 129 mm[Hg] 129 mm[Hg] [facility] Body weight 2224 [oz_av] 2224 [oz_av] BLAKE ([facility]) Diastolic blood pressure 82 mm[Hg] 82 mm[Hg] BLAKE ([facility]) Body height 69 [in_i] 69 [in_i] BLAKE ([facility]) Body mass index (BMI) [Ratio] 20.5 kg/m2 20.5 k g/m2 [facility]LAKE ([facility]) Systolic blood pressure 129 mm[Hg] 129 mm[Hg] [facility] Body weight 2224 [oz_av] 2224 [oz_av] BLAKE ([facility]) Diastolic blood pressure 82 mm[Hg] 82 mm[Hg] BLAKE ([facility]) Body height 69 [in_i] 69 [in_i] BLAKE ([facility]) Body mass index (BMI) [Ratio] 20.5 kg/m2 20.5 k g/m2 BLAKE ([facility]) Systolic blood pressure 129 mm[Hg] 129 mm[Hg] A VILMAA ([facility]) Body weight 2224 [oz_av] 2224 [oz_av] BLAKE ([facility]) Diastolic blood pressure 82 mm[Hg] 82 mm[Hg] BLAKE ([facility]) Body height 69 [in_i] 69 [in_i] BLAKE ([facility]) Body mass index (BMI) [Ratio] 20.5 kg/m2 20.5 k g/m2 BLAKE ([facility]) Systolic blood pressure 129 mm[Hg] 129 mm[Hg] A VILMAA ([facility]) Body weight 2224 [oz_av] 2224 [oz_av] BLAKE ([facility]) Body height 64 [in_i] 64 [in_i] MEDENT ([facility], ) 5'4" Body weight 150.00 [lb_av] 150.00 [lb_av] MEDEN T ([facility], ) [place] body weight 130 [lb_av] 130 [lb_av] MEDEN T ([facility], ) Respiratory rate 12 /min 12 /min MEDENT ( [facility], ) Body mass index (BMI) [Ratio] 25.7 kg/m2 25.7 k g/m2 MEDENT ([facility], ) Diastolic blood pressure 68 mm[Hg] 68 mm[Hg] BLAKE ([facility]) Body height 69 [in_i] 69 [in_i] BLAKE ([facility]) Body mass index (BMI) [Ratio] 21.8 kg/m2 21.8 k g/m2 BLAKE ([facility]) Systolic blood pressure 116 mm[Hg] 116 mm[Hg] A VILMAA ([facility]) Body weight 2360 [oz_av] 2360 [oz_av] BLAKE ([facility]) Diastolic blood pressure 68 mm[Hg] 68 mm[Hg] BLAKE ([facility]) Body height 69 [in_i] 69 [in_i] BLAKE ([facility]) Body mass index (BMI) [Ratio] 21.8 kg/m2 21.8 k g/m2 BLAKE ([facility]) Systolic blood pressure 116 mm[Hg] 116 mm[Hg] [facility] Body weight 2360 [oz_av] 2360 [oz_av] BLAKE ([facility]) Diastolic blood pressure 68 mm[Hg] 68 mm[Hg] BLAKE ([facility]) Body height 69 [in_i] 69 [in_i] BLAKE ([facility]) Body mass index (BMI) [Ratio] 21.8 kg/m2 21.8 k g/m2 BLAKE ([facility]) Systolic blood pressure 116 mm[Hg] 116 mm[Hg] A [facility] ([facility]) Body weight 2360 [oz_av] 2360 [oz_av] BLAKE ([facility]) Diastolic blood pressure 68 mm[Hg] 68 mm[Hg] BLAKE ([facility]) Body height 69 [in_i] 69 [in_i] BLAKE ([facility]) Body mass index (BMI) [Ratio] 21.8 kg/m2 21.8 k g/m2 BLAKE ([facility]) Systolic blood pressure 116 mm[Hg] 116 mm[Hg] [facility] Body weight 2360 [oz_av] 2360 [oz_av] BLAKE ([facility]) Diastolic blood pressure 68 mm[Hg] 68 mm[Hg] BLAKE ([facility]) Body height 69 [in_i] 69 [in_i] BLAKE ([facility]) Body mass index (BMI) [Ratio] 21.8 kg/m2 21.8 k g/m2 BLAKE ([facility]) Systolic blood pressure 116 mm[Hg] 116 mm[Hg] [facility] Body weight 2360 [oz_av] 2360 [oz_av] BLAKE ([facility]) Diastolic blood pressure 80 mm[Hg] 80 mm[Hg] LBAKE ([facility]) Body height 69 [in_i] 69 [in_i] BLAKE ([facility]) Body mass index (BMI) [Ratio] 23.1 kg/m2 23.1 k g/m2 BLAKE ([facility]) Systolic blood pressure 127 mm[Hg] 127 mm[Hg] [facility] Body weight 2502 [oz_av] 2502 [oz_av] BLAKE ([facility]) Body weight 2502 [oz_av] 2502 [oz_av] BLAKE ([facility]) Diastolic blood pressure 80 mm[Hg] 80 mm[Hg] BLAKE ([facility]) Body height 69 [in_i] 69 [in_i] BLAKE ([facility]) Body mass index (BMI) [Ratio] 23.1 kg/m2 23.1 k g/m2 BLAKE ([facility]) Systolic blood pressure 127 mm[Hg] 127 mm[Hg] [facility] Body weight 2502 [oz_av] 2502 [oz_av] [facility]LAKE ([facility]) Diastolic blood pressure 80 mm[Hg] 80 mm[Hg] BLAKE ([facility]) Body height 69 [in_i] 69 [in_i] BLAKE ([facility]) Body mass index (BMI) [Ratio] 23.1 kg/m2 23.1 k g/m2 [facility]LAKE ([facility]) Systolic blood pressure 127 mm[Hg] 127 mm[Hg] A [facility] ([facility]) Body height 69 [in_i] 69 [in_i] BLAKE ([facility]) Body mass index (BMI) [Ratio] 23.1 kg/m2 23.1 k g/m2 BLAKE ([facility]) Systolic blood pressure 127 mm[Hg] 127 mm[Hg] [facility] Body weight 2502 [oz_av] 2502 [oz_av] BLAKE ([facility]) Diastolic blood pressure 80 mm[Hg] 80 mm[Hg] BLAKE ([facility]) Diastolic blood pressure 80 mm[Hg] 80 mm[Hg] BLAKE ([facility]) Body height 69 [in_i] 69 [in_i] BLAKE ([facility]) Body mass index (BMI) [Ratio] 23.1 kg/m2 23.1 k g/m2 BLAKE ([facility]) Systolic blood pressure 127 mm[Hg] 127 mm[Hg] A THENA ([facility]) Body weight 2502 [oz_av] 2502 [oz_av] BLAKE ([facility]) Diastolic blood pressure 80 mm[Hg] 80 mm[Hg] BLAKE ([facility]) Body height 69 [in_i] 69 [in_i] BLAKE ([facility]) Body mass index (BMI) [Ratio] 23.1 kg/m2 23.1 k g/m2 [facility]LAKE ([facility]) Systolic blood pressure 127 mm[Hg] 127 mm[Hg] [facility] Body weight 2502 [oz_av] 2502 [oz_av] BLAKE ([facility]) Diastolic blood pressure 82 mm[Hg] 82 mm[Hg] BLAKE ([facility]) Body height 69 [in_i] 69 [in_i] BLAKE ([facility]) Body mass index (BMI) [Ratio] 22.7 kg/m2 22.7 k g/m2 [facility]LAKE ([facility]) Systolic blood pressure 125 mm[Hg] 125 mm[Hg] [facility] Body weight 2456 [oz_av] 2456 [oz_av] BLAKE ([facility]) Diastolic blood pressure 82 mm[Hg] 82 mm[Hg] BLAKE ([facility]) Body height 69 [in_i] 69 [in_i] BLAKE ([facility]) Body mass index (BMI) [Ratio] 22.7 kg/m2 22.7 k g/m2 [facility]LAKE ([facility]) Systolic blood pressure 125 mm[Hg] 125 mm[Hg] A THENA ([facility]) Body weight 2456 [oz_av] 2456 [oz_av] BLAKE ([facility]) Body weight 2456 [oz_av] 2456 [oz_av] BLAKE ([facility]) Diastolic blood pressure 82 mm[Hg] 82 mm[Hg] BLAKE ([facility]) Body height 69 [in_i] 69 [in_i] BLAKE ([facility]) Body mass index (BMI) [Ratio] 22.7 kg/m2 22.7 k g/m2 BLAKE ([facility]) Systolic blood pressure 125 mm[Hg] 125 mm[Hg] [facility] Diastolic blood pressure 82 mm[Hg] 82 mm[Hg] BLAKE ([facility]) Body height 69 [in_i] 69 [in_i] BLAKE ([facility]) Body mass index (BMI) [Ratio] 22.7 kg/m2 22.7 k g/m2 BLAKE ([facility]) Systolic blood pressure 125 mm[Hg] 125 mm[Hg] [facility] Body weight 2456 [oz_av] 2456 [oz_av] BLAKE ([facility]) Diastolic blood pressure 82 mm[Hg] 82 mm[Hg] BLAKE ([facility]) Body height 69 [in_i] 69 [in_i] BLAKE ([facility]) Body mass index (BMI) [Ratio] 22.7 kg/m2 22.7 k g/m2 BLAKE ([facility]) Systolic blood pressure 125 mm[Hg] 125 mm[Hg] [facility] Body weight 2456 [oz_av] 2456 [oz_av] BLAKE ([facility]) Diastolic blood pressure 82 mm[Hg] 82 mm[Hg] BLAKE ([facility]) Body height 69 [in_i] 69 [in_i] BLAKE ([facility]) Body mass index (BMI) [Ratio] 22.7 kg/m2 22.7 k g/m2 BLAKE ([facility]) Systolic blood pressure 125 mm[Hg] 125 mm[Hg] [facility] Body weight 2456 [oz_av] 2456 [oz_av] BLAKE ([facility]) Diastolic blood pressure 82 mm[Hg] 82 mm[Hg] BLAKE ([facility]) Body height 69 [in_i] 69 [in_i] BLAKE ([facility]) Body mass index (BMI) [Ratio] 22.7 kg/m2 22.7 k g/m2 [facility]LAKE ([facility]) Systolic blood pressure 125 mm[Hg] 125 mm[Hg] A THENA ([facility]) Body weight 2456 [oz_av] 2456 [oz_av] [facility]KE ([facility]) Diastolic blood pressure 74 mm[Hg] 74 mm[Hg] BLAKE ([facility]) Body height 69 [in_i] 69 [in_i] BLAKE ([facility]) Body mass index (BMI) [Ratio] 22.7 kg/m2 22.7 k g/m2 [facility]KE ([facility]) Systolic blood pressure 108 mm[Hg] 108 mm[Hg] [facility] Body weight 2464 [oz_av] 2464 [oz_av] [facility]KE ([facility]) Diastolic blood pressure 74 mm[Hg] 74 mm[Hg] [facility]KE ([facility]) Body height 69 [in_i] 69 [in_i] BLAKE ([facility]) Body mass index (BMI) [Ratio] 22.7 kg/m2 22.7 k g/m2 [facility] ([facility]) Systolic blood pressure 108 mm[Hg] 108 mm[Hg] [facility] Body weight 2464 [oz_av] 2464 [oz_av] [facility]KE ([facility]) Diastolic blood pressure 74 mm[Hg] 74 mm[Hg] [facility]KE ([facility]) Body height 69 [in_i] 69 [in_i] BLAKE ([facility]) Body mass index (BMI) [Ratio] 22.7 kg/m2 22.7 k g/m2 [facility] ([facility]) Systolic blood pressure 108 mm[Hg] 108 mm[Hg] A THENA ([facility]) Body weight 2464 [oz_av] 2464 [oz_av] [facility]KE ([facility]) Diastolic blood pressure 74 mm[Hg] 74 mm[Hg] BLAKE ([facility]) Body height 69 [in_i] 69 [in_i] [facility]KE ([facility]) Body mass index (BMI) [Ratio] 22.7 kg/m2 22.7 k g/m2 [facility] ([facility]) Systolic blood pressure 108 mm[Hg] 108 mm[Hg] [facility] Body weight 2464 [oz_av] 2464 [oz_av] [facility]KE ([facility]) Systolic blood pressure 108 mm[Hg] 108 mm[Hg] A THENA ([facility]) Body weight 2464 [oz_av] 2464 [oz_av] [facility]KE ([facility]) Diastolic blood pressure 74 mm[Hg] 74 mm[Hg] [facility]KE ([facility]) Body height 69 [in_i] 69 [in_i] [facility]KE ([facility]) Body mass index (BMI) [Ratio] 22.7 kg/m2 22.7 k g/m2 [facility] ([facility]) Diastolic blood pressure 74 mm[Hg] 74 mm[Hg] B[facility]KE ([facility]) Body height 69 [in_i] 69 [in_i] [facility]KE ([facility]) Body mass index (BMI) [Ratio] 22.7 kg/m2 22.7 k g/m2 [facility] ([facility]) Systolic blood pressure 108 mm[Hg] 108 mm[Hg] [facility] [place] Body weight 2464 [oz_av] 2464 [oz_av] [facility] ([facility]) Body weight 2464 [oz_av] 2464 [oz_av] [facility] ([facility]) Diastolic blood pressure 74 mm[Hg] 74 mm[Hg] [facility] ([facility]) Body height 69 [in_i] 69 [in_i] [facility] ([facility]) Body mass index (BMI) [Ratio] 22.7 kg/m2 22.7 k g/m2 [facility] ([facility]) Systolic blood pressure 108 mm[Hg] 108 mm[Hg] [facility] Diastolic blood pressure 74 mm[Hg] 74 mm[Hg] [facility] ([facility]) Body height 69 [in_i] 69 [in_i] [facility] ([facility]) Body mass index (BMI) [Ratio] 22.7 kg/m2 22.7 k g/m2 [facility] ([facility]) Systolic blood pressure 108 mm[Hg] 108 mm[Hg] Ailyn THENA ([facility]) Body weight 2464 [oz_av] 2464 [oz_av] [facility]LAKE ([facility]) Patient Treatment Plan of Care Planned Activity Planned Date Details Description Data Source (s) Buprenorphine 2 MG / Naloxone 0.5 MG Oral Strip 11/13/2020 12:00:00 AM EST [facility] ([facility]) tramadol hydrochloride 50 MG Oral Tablet [facility] ([facility]) topiramate 50 MG Oral Tablet [place] ([facility]) topiramate 25 MG Oral Tablet [facility] ([facility]) 0.5 ML Sumatriptan 6 MG Cartridge [facility] ([facility]) Sumatriptan 50 MG Oral Tablet [facility] ([facility]) Ibuprofen 600 MG Oral Tablet [facility] ([facility]) Ibuprofen 200 MG Oral Tablet [place] ([facility]) gabapentin 300 MG Oral Capsule [facility] ([facility]) gabapentin 100 MG Oral Capsule [facility] ([facility]) Fluoxetine 10 MG Oral Capsule [place] ([facility]) Doxycycline Monohydrate 100 MG Oral Capsule [place] ([facility]) Sodium Fluoride 0.011 MG/MG Toothpaste [Denta 5000 Plus] [facility] ([facility]) Clindamycin 300 MG Oral Capsule [facility] ([facility]) Citalopram 10 MG Oral Tablet [facility] ([facility]) Chantix Starting Month Box 0.5 mg (11)-1 mg (42) tablets in dose pack USE DIRECTED PER BOX INSTRUCTIONS AT [facility] ([facility]) Cephalexin 500 MG Oral Capsule [place] ([facility]) buspirone hydrochloride 7.5 MG Oral Tablet [facility]K ([facility]) buspirone hydrochloride 15 MG Oral Tablet [place] ([facility]) Buprenorphine 8 MG / Naloxone 2 MG Sublingual Tablet [facility] ([facility]) Buprenorphine 4 MG / Naloxone 1 MG Oral Strip [facility] ([facility]) Buprenorphine 2 MG / Naloxone 0.5 MG Sublingual Tablet [place] ([facility]) tramadol hydrochloride 50 MG Oral Tablet [place] ([facility]) topiramate 50 MG Oral Tablet [place] ([facility]) topiramate 25 MG Oral Tablet [place] ([facility]) 0.5 ML Sumatriptan 6 MG Cartridge [facility] ([facility]) Sumatriptan 50 MG Oral Tablet [place] ([facility]) Ibuprofen 600 MG Oral Tablet [place] ([facility]) Ibuprofen 200 MG Oral Tablet [place] ([facility]) gabapentin 300 MG Oral Capsule [facility] ([facility]) gabapentin 100 MG Oral Capsule [facility] ([facility]) Fluoxetine 10 MG Oral Capsule [facility] ([facility]) Doxycycline Monohydrate 100 MG Oral Capsule [facility] ([facility]) Sodium Fluoride 0.011 MG/MG Toothpaste [Denta 5000 Plus] [facility] ([facility]) Clindamycin 300 MG Oral Capsule [facility] ([facility]) Citalopram 10 MG Oral Tablet [facility] ([facility]) Chantix Starting Month Box 0.5 mg (11)-1 mg (42) tablets in dose pack USE DIRECTED PER BOX INSTRUCTIONS AT [facility] ([facility]) Cephalexin 500 MG Oral Capsule [place] ([facility]) buspirone hydrochloride 7.5 MG Oral Tablet [place] ([facility]) buspirone hydrochloride 15 MG Oral Tablet [facility] ([facility]) Buprenorphine 8 MG / Naloxone 2 MG Sublingual Tablet [facility] ([facility]) Buprenorphine 4 MG / Naloxone 1 MG Oral Strip [facility] ([facility]) Buprenorphine 2 MG / Naloxone 0.5 MG Sublingual Tablet [facility] ([facility]) tramadol hydrochloride 50 MG Oral Tablet [facility] ([facility]) topiramate 50 MG Oral Tablet [facility] ([facility]) topiramate 25 MG Oral Tablet [facility] ([facility]) 0.5 ML Sumatriptan 6 MG Cartridge [facility] ([facility]) Sumatriptan 50 MG Oral Tablet [facility] ([facility]) Ibuprofen 600 MG Oral Tablet [facility] ([facility]) Ibuprofen 200 MG Oral Tablet [facility] ([facility]) gabapentin 300 MG Oral Capsule [facility] ([facility]) gabapentin 100 MG Oral Capsule [facility] ([facility]) Fluoxetine 10 MG Oral Capsule [facility] ([facility]) Doxycycline Monohydrate 100 MG Oral Capsule [facility] ([facility]) Sodium Fluoride 0.011 MG/MG Toothpaste [Denta 5000 Plus] [facility] ([facility]) Clindamycin 300 MG Oral Capsule [facility] ([facility]) Citalopram 10 MG Oral Tablet [facility] ([facility]) Chantix Starting Month Box 0.5 mg (11)-1 mg (42) tablets in dose pack USE DIRECTED PER BOX INSTRUCTIONS AT [facility] ([facility]) Cephalexin 500 MG Oral Capsule [facility] ([facility]) buspirone hydrochloride 7.5 MG Oral Tablet [facility] ([facility]) buspirone hydrochloride 15 MG Oral Tablet [facility] ([facility]) Buprenorphine 8 MG / Naloxone 2 MG Sublingual Tablet [facility] ([facility]) Buprenorphine 4 MG / Naloxone 1 MG Oral Strip [facility] ([facility]) Buprenorphine 2 MG / Naloxone 0.5 MG Sublingual Tablet [facility] ([facility]) zolmitriptan 5 MG Oral Tablet [facility] ([facility]) tramadol hydrochloride 50 MG Oral Tablet [facility] ([facility]) topiramate 50 MG Oral Tablet [place] ([facility]) topiramate 25 MG Oral Tablet [facility] ([facility]) 0.5 ML Sumatriptan 6 MG Cartridge [facility] ([facility]) Sumatriptan 50 MG Oral Tablet [facility] ([facility]) Ibuprofen 600 MG Oral Tablet [facility] ([facility]) Ibuprofen 200 MG Oral Tablet [facility] ([facility]) gabapentin 300 MG Oral Capsule [facility] ([facility]) gabapentin 100 MG Oral Capsule [facility] ([facility]) Fluoxetine 10 MG Oral Capsule [facility] ([facility]) Doxycycline Monohydrate 100 MG Oral Capsule [facility] ([facility]) 24 HR Divalproex Sodium 250 MG Extended Release Oral Tablet [facility] ([facility]) Sodium Fluoride 0.011 MG/MG Toothpaste [Denta 5000 Plus] [facility] ([facility]) Clindamycin 300 MG Oral Capsule [facility] ([facility]) Citalopram 10 MG Oral Tablet [facility] ([facility]) Chantix Starting Month Box 0.5 mg (11)-1 mg (42) tablets in dose pack USE DIRECTED PER BOX INSTRUCTIONS AT [facility] ([facility]) Cephalexin 500 MG Oral Capsule [facility] ([facility]) buspirone hydrochloride 7.5 MG Oral Tablet [place] ([facility]) buspirone hydrochloride 15 MG Oral Tablet [facility] ([facility]) Buprenorphine 8 MG / Naloxone 2 MG Sublingual Tablet [facility] ([facility]) Buprenorphine 4 MG / Naloxone 1 MG Oral Strip [facility] ([facility]) Buprenorphine 2 MG / Naloxone 0.5 MG Sublingual Tablet [facility] ([facility]) zolmitriptan 5 MG Oral Tablet [facility] ([facility]) tramadol hydrochloride 50 MG Oral Tablet [facility] ([facility] topiramate 25 MG Oral Tablet [facility] ([facility]) 0.5 ML Sumatriptan 6 MG Cartridge [facility] ([facility]) Sumatriptan 50 MG Oral Tablet [facility] ([facility]) Ibuprofen 600 MG Oral Tablet [place] ([facility]) Ibuprofen 200 MG Oral Tablet [place] ([facility]) gabapentin 300 MG Oral Capsule [facility] ([facility]) gabapentin 100 MG Oral Capsule [facility] ([facility]) Fluoxetine 10 MG Oral Capsule [facility] ([facility]) Doxycycline Monohydrate 100 MG Oral Capsule [facility] ([facility]) Sodium Fluoride 0.011 MG/MG Toothpaste [Denta 5000 Plus] [facility] ([facility]) Clindamycin 300 MG Oral Capsule [facility] ([facility]) Citalopram 10 MG Oral Tablet [facility] ([facility]) Cephalexin 500 MG Oral Capsule [facility] ([facility]) buspirone hydrochloride 7.5 MG Oral Tablet [facility] ([facility]) buspirone hydrochloride 15 MG Oral Tablet [facility] ([facility]) Buprenorphine 8 MG / Naloxone 2 MG Sublingual Tablet [facility] ([facility]) Buprenorphine 4 MG / Naloxone 1 MG Oral Strip [facility] ([facility]) Buprenorphine 2 MG / Naloxone 0.5 MG Sublingual Tablet [facility] ([facility]) zolmitriptan 5 MG Oral Tablet [facility] ([facility]) tramadol hydrochloride 50 MG Oral Tablet [facility] ([facility]) topiramate 25 MG Oral Tablet [facility] ([facility]) 0.5 ML Sumatriptan 6 MG Cartridge [facility] ([facility]) Sumatriptan 50 MG Oral Tablet [facility] ([facility]) Ibuprofen 600 MG Oral Tablet [facility] ([facility]) Ibuprofen 200 MG Oral Tablet [facility] ([facility]) gabapentin 300 MG Oral Capsule [facility] ([facility]) gabapentin 100 MG Oral Capsule [facility] ([facility]) Fluoxetine 10 MG Oral Capsule [facility] ([facility]) Doxycycline Monohydrate 100 MG Oral Capsule [facility] ([facility]) Sodium Fluoride 0.011 MG/MG Toothpaste [Denta 5000 Plus] [facility] ([facility]) Clindamycin 300 MG Oral Capsule [facility] ([facility]) Citalopram 10 MG Oral Tablet [facility] ([facility]) Cephalexin 500 MG Oral Capsule [facility] ([facility]) buspirone hydrochloride 7.5 MG Oral Tablet [facility] ([facility]) buspirone hydrochloride 15 MG Oral Tablet [facility] ([facility]) Buprenorphine 8 MG / Naloxone 2 MG Sublingual Tablet [facility] ([facility]) Buprenorphine 8 MG / Naloxone 2 MG Oral Strip [facility] ([facility]) Buprenorphine 4 MG / Naloxone 1 MG Oral Strip [facility] ([facility]) Buprenorphine 2 MG / Naloxone 0.5 MG Sublingual Tablet [facility] ([facility]) Buprenorphine 2 MG / Naloxone 0.5 MG Oral Strip [facility] ([facility]) tramadol hydrochloride 50 MG Oral Tablet [place] ([facility]) topiramate 25 MG Oral Tablet [facility] ([facility]) Sumatriptan 50 MG Oral Tablet [facility] ([facility] Ibuprofen 600 MG Oral Tablet [facility] ([facility]) Ibuprofen 200 MG Oral Tablet [facility] ([facility]) gabapentin 400 MG Oral Capsule [facility] ([facility]) gabapentin 100 MG Oral Capsule [facility] ([facility]) Doxycycline Monohydrate 100 MG Oral Capsule [facility] ([facility]) Sodium Fluoride 0.011 MG/MG Toothpaste [Denta 5000 Plus] [facility] ([facility]) Clindamycin 300 MG Oral Capsule [facility] ([facility]) Cephalexin 500 MG Oral Capsule [facility] ([facility]) buspirone hydrochloride 7.5 MG Oral Tablet [facility] ([facility]) buspirone hydrochloride 15 MG Oral Tablet [facility] ([facility]) Buprenorphine 8 MG / Naloxone 2 MG Oral Strip [facility] ([facility]) Buprenorphine 4 MG / Naloxone 1 MG Oral Strip [facility] ([facility]) Buprenorphine 2 MG / Naloxone 0.5 MG Sublingual Tablet [facility] ([facility]) tramadol hydrochloride 50 MG Oral Tablet [place] ([facility]) topiramate 25 MG Oral Tablet [facility] ([facility]) Ibuprofen 600 MG Oral Tablet [facility] ([facility]) Ibuprofen 200 MG Oral Tablet [facility] ([facility]) gabapentin 400 MG Oral Capsule [facility] ([facility]) gabapentin 100 MG Oral Capsule [facility] ([facility]) Doxycycline Monohydrate 100 MG Oral Capsule [facility] ([facility]) Sodium Fluoride 0.011 MG/MG Toothpaste [Denta 5000 Plus] [facility] ([facility]) Clindamycin 300 MG Oral Capsule [facility] ([facility]) Cephalexin 500 MG Oral Capsule [facility] ([facility]) buspirone hydrochloride 7.5 MG Oral Tablet [facility] ([facility]) buspirone hydrochloride 15 MG Oral Tablet [facility] ([facility]) Buprenorphine 8 MG / Naloxone 2 MG Oral Strip [facility] ([facility]) Buprenorphine 4 MG / Naloxone 1 MG Oral Strip [facility] ([facility]) Buprenorphine 2 MG / Naloxone 0.5 MG Sublingual Tablet [facility] ([facility])
== END 2021-06-27 19:43 | disposition home or self-care (01) ==
LOC: M ED 18:03
DX: S61.311A Laceration without foreign body of left index finger with damage to nail, initial encounter (principal); W22.8XXA Striking against or struck by other objects, initial encounter; Y92.89 Other specified places as the place of occurrence of the external cause; Y99.0 Civilian activity done for income or pay; Z88.0 Allergy status to penicillin; Z88.1 Allergy status to other antibiotic agents; Z88.2 Allergy status to sulfonamides